=== PATIENT | female | born 1940 | race Caucasian/White ===

== ENCOUNTER 2017-01-20 13:19 | Inpatient (IN) | payer OTHER, MEDICAID ==
[~2017-01-20] VITALS: Ht 165.1 cm; Wt 67.1 kg
[~2017-01-20 13:19] MED LIST: ALBU8.5H2 INH; ASCO500T9 PO; BACL20TA PO; CLOP75TA2 PO; LEVO125T8 PO; MULT-213 PO; PANT40TA4 PO; ROSU20TA28 PO; ZOLP5TAB7 PO
--- NOTE | 2017-01-20 13:52 | NUR ---
pt bibra from snf. per report, pt is more altered than usual. pt is non verbal. gowned and placed on monitor. stable vitals noted. no fever, awaiting md alfaro.
--- NOTE | 2017-01-20 14:45 | NUR ---
dr mo at bedside for eval.
--- NOTE | 2017-01-20 15:15 | NUR ---
iv line started blood drawn and sent to lab.
[2017-01-20 15:24] LABS: BASOPHILS # (AUTO) 0.2 /CMM (0.0-0.2); BASOPHILS % (AUTO) 1.3 % (0.0-2.0); EOSINOPHILS # (AUTO) 0.4 /CMM (0.0-0.7); EOSINOPHILS % (AUTO) 3.8 % (0.0-6.0); HEMATOCRIT 33 % (33-45); HEMOGLOBIN 10.6 g/dL (11.5-14.8); LYMPHOCYTES # (AUTO) 4.3 /CMM (0.8-4.8); LYMPHOCYTES % (AUTO) 36.7 % (20.0-44.0); MEAN CORPUSCULAR HEMOGLOBIN 27 PG (26.0-33.0); MEAN CORPUSCULAR HGB CONC 32 g/dl (31.0-36.0); MEAN CORPUSCULAR VOLUME 84 fL (82-100); MONOCYTES % (AUTO) 8.7 % (2.0-12.0); NEUTROPHILS # (AUTO) 5.9 /CMM (1.8-8.9); NEUTROPHILS % (AUTO) 49.5 % (43.0-81.0); PLATELET COUNT (AUTO) 418 /CMM (150-450); RDW COEFFICIENT OF VARIATION 19.1 (11.5-15.0); RED BLOOD CELL COUNT(AUTO) 3.95 MIL/uL (4.0-5.2); WHITE BLOOD COUNT (AUTO) 11.8 K/uL (4.3-11.0)
[2017-01-20 15:35] LABS: CALCIUM, SERUM 10.1 mg/dL (8.5-10.1); CARBON DIOXIDE 23 mmol/L (21-32); CHLORIDE 116 mmol/L (98-107); CREATININE 1.8 mg/dL (0.6-1.3); GLUCOSE 81 mg/dL (74-106); POTASSIUM 3.9 mmol/L (3.5-5.1); SODIUM SERUM 150 mmol/L (136-145); UREA NITROGEN, BLOOD 52 mg/dL (7-18)
[2017-01-20 15:38] LABS: INR 1.03 (0.87-1.13); PROTHROMBIN TIME 10.7 SECS (9.5-12.7)
[2017-01-20 15:41] LABS: ALANINE AMINOTRANSFERASE 7 U/L (12-78); ALBUMIN 2.4 g/dL (3.4-5.0); ALKALINE PHOSPHATASE 84 U/L (46-116); ASPARTATE AMINOTRANSFERASE 12 U/L (15-37); BILIRUBIN,DIRECT 0.2 mg/dL (0.0-0.2); BILIRUBIN,TOTAL 0.5 mg/dL (0.2-1.0); TOTAL PROTEIN, SERUM 6.7 g/dL (6.4-8.2)
[2017-01-20 15:43] LABS: TROPONIN I < 0.017 ng/mL (0.00-0.056)
[2017-01-20 16:15] LABS: APPEARANCE,URINE Slightly Cloudy (CLEAR); BILIRUBIN,URINE SMALL (NEGATIVE); BLOOD, URINE Moderate Ery/uL (NEGATIVE); COLOR,URINE Dark (YELLOW); KETONES,URINE Trace (NEGATIVE); LEUKOCYTE ESTERASE ,URINE Large (NEGATIVE); NITRITE, URINE Positive (NEGATIVE); PH,URINE 8.5 (5.0-8.0); PROTEIN,URINE >=300 mg/dl (NEGATIVE); UGLUCOSE Negative (NEGATIVE)
[2017-01-20 16:20] LABS: WBC,URINE TOO NUMEROUS TO COUN /HPF (0-3)
[2017-01-20 16:21] LABS: BACTERIA,URINE Many /HPF (None Seen); SQUAMOUS EPITHELIAL CELL,UR Few /HPF (None Seen)
[2017-01-20] MEDS ORDERED: PIPERACILLIN /TAZOBACTAM 3.375 G in IV D5W 50 ML IV ONE (16:30)
[2017-01-20] MEDS ORDERED: IV NS 0.9% 1,000 ML BAG IV ONE (16:30)
[2017-01-20] MEDS ORDERED: HYDR-552 PO (17:02)
[2017-01-20] MEDS ORDERED: BISA10SU8 RC (17:02)
[2017-01-20] MEDS ORDERED: GUAI5SYR PO (17:02)
[2017-01-20] MEDS ORDERED: FLUT16SP16 NS (17:02)
[2017-01-20] MEDS ORDERED: IBAN150T PO (17:02)
[2017-01-20] MEDS ORDERED: ACET325T53 PO (17:02)
[2017-01-20] MEDS ORDERED: MEGE400O PO (17:02)
[2017-01-20] MEDS ORDERED: ALBU2.5V13 IH (17:02)
[2017-01-20] MEDS ORDERED: MAGN400O6 PO (17:02)
[2017-01-20] MEDS ORDERED: LEVO75TA7 PO (17:02)
[2017-01-20] MEDS ORDERED: NA P133E RC (17:02)
[2017-01-20] MEDS ORDERED: HYDR-548 PO (17:02)
[2017-01-20] MEDS ORDERED: PREG75CA PO (17:02)
[2017-01-20] MEDS ORDERED: HYDR2TAB35 PO (17:16)
[2017-01-20] MEDS ORDERED: POLY17PO4 PO (17:16)
[2017-01-20] MEDS ORDERED: AMIN30LI2 PO (17:16)
[2017-01-20] MEDS ORDERED: VIT1CAPS32 PO (17:16)
[2017-01-20] MEDS ORDERED: ATOR40TA PO (17:16)
[2017-01-20] MEDS ORDERED: ONDA4TAB5 PO (17:16)
--- NOTE | 2017-01-20 17:19 | NUR ---
report given to nurse. pt awaiting transfer to floor.
[2017-01-20 18:14] VITALS: BP 124/67
--- NOTE | 2017-01-20 18:20 | NUR ---
RECEIVED PT FROM THE ER. PT IS AWAKE, ALERT AND ORIENTED TO SELF ONLY. IV ON RAC INTACT AND PATENT. DR. JIMÉNEZ WAS NOTIFIED OF PT ARRIVAL ON UNIT. VITALS ARE BP 124/67 HR 94 R 20 TEMP 99.3 AND O2 SAT IS 96 ON RA. PT SHOWS NO SOB OR SIGNS OF PAIN. BED IS IN LOW AND LOCKED POSITION, SIDE RAILS UP X3, CALL LIGHT IS IN REACH, AND BED ALARM IS ON. WILL CONTINUE TO MONITOR.
[2017-01-20] MEDS ORDERED: ONDANSETRON HCL/PF 4 MG/2 ML VIAL IVP PRN (18:30)
[2017-01-20] MEDS ORDERED: ENOXAPARIN SODIUM 40 MG/0.4 ML DISP.SYRIN SQ SCH (18:30)
[2017-01-20] MEDS ORDERED: BISACODYL SUPP (10 MG) 10 MG/SUPP.RECT SUPP.RECT RC PRN (18:30)
[2017-01-20] MEDS ORDERED: ALBUTEROL FS 2.5 MG/0.5 ML VIAL.NEB IH PRN (18:30)
--- NOTE | 2017-01-20 18:30 | NUR ---
LOVENOX WAS GIVEN. NEXT DOSE TO BE AT 01/21/17 AT 2100.
[2017-01-20] MEDS: ENOXAPARIN SODIUM 30 MG/0.3 ML DISP.SYRIN SQ SCH (18:37)
[2017-01-20] MEDS: IV D5W 1,000 ML IV PRN (18:39)
--- NOTE | 2017-01-20 18:55 | NUR ---
RN NOTES PT IS IN BED, SLEEPING INTERMITTENTLY. NO SIGNS OF DISTRESS OR PAIN. SAFETY MEASURES ARE IN PLACE. WILL ENDORSE TO CRIMINAL DEFENSE ATTORNEY RN FOR CONTINUITY OF CARE.
--- NOTE | 2017-01-20 19:30 | NUR ---
RN NOTES RECEIVED PT. SLEEPING BUT AROUSABLE, SR WITH PAC ON TELE MONITOR HR-65, A/OX2, SLURRED SPEECH, ADMISSION INSTRUCTION WAS GIVEN, CALL LIGHT WITHIN REACH, SIDERAILS UPX2, CONTINUE TO MONITOR
[2017-01-20 20:00] VITALS: BP 122/61
[2017-01-20] MEDS: CEFTRIAXONE 1 G in IV D5W 50 ML IV SCH (20:39)
[2017-01-20] MEDS: ATORVASTATIN 40 MG TABLET PO SCH (21:23)
[2017-01-21] VITALS: BP 139/72
--- NOTE | 2017-01-21 01:00 | NUR ---
RN NOTES PT CAME BUT PT. IS ALREADY SLEEPING
[2017-01-21 04:00] VITALS: BP 127/74
[2017-01-21] MEDS: IV D5W 1,000 ML IV PRN (05:13)
--- NOTE | 2017-01-21 06:56 | NUR ---
RN NOTES AWAKE, MORNING CARE RENDERED, IV LINE PATENT, PT NEEDS ATTENDED.
[2017-01-21 07:12] LABS: BASOPHILS % (AUTO) 0.5 % (0.0-2.0); EOSINOPHILS # (AUTO) 0.6 /CMM (0.0-0.7); EOSINOPHILS % (AUTO) 6.4 % (0.0-6.0); HEMATOCRIT 29 % (33-45); HEMOGLOBIN 9.4 g/dL (11.5-14.8); LYMPHOCYTES # (AUTO) 3.6 /CMM (0.8-4.8); LYMPHOCYTES % (AUTO) 38.4 % (20.0-44.0); MEAN CORPUSCULAR HEMOGLOBIN 27 PG (26.0-33.0); MEAN CORPUSCULAR HGB CONC 33 g/dl (31.0-36.0); MEAN CORPUSCULAR VOLUME 83 fL (82-100); MONOCYTES # (AUTO) 0.7 /CMM (0.1-1.30); MONOCYTES % (AUTO) 7.3 % (2.0-12.0); NEUTROPHILS # (AUTO) 4.4 /CMM (1.8-8.9); NEUTROPHILS % (AUTO) 47.4 % (43.0-81.0); PLATELET COUNT (AUTO) 325 /CMM (150-450); RDW COEFFICIENT OF VARIATION 20.1 (11.5-15.0); RED BLOOD CELL COUNT(AUTO) 3.46 MIL/uL (4.0-5.2); WHITE BLOOD COUNT (AUTO) 9.3 K/uL (4.3-11.0)
--- NOTE | 2017-01-21 07:30 | NUR ---
MARINE FIREMAN NOTES PATIENT IS A/OX1-2. NO S/S OF SOB OR DISTRESS NOTED. PATIENT ON TELE MONITOR: HR AT 82; SR. IV IS PATENT AND INTACT. BED IS IN THE LOWEST, LOCKED POSITION. CALL LIGHT WITHIN REACH. WILL CONTINUE TO MONITOR THROUGHOUT SHIFT.
[2017-01-21 07:33] LABS: ALANINE AMINOTRANSFERASE 12 U/L (12-78); ALBUMIN 1.9 g/dL (3.4-5.0); ALKALINE PHOSPHATASE 71 U/L (46-116); ASPARTATE AMINOTRANSFERASE 15 U/L (15-37); BILIRUBIN,TOTAL 0.3 mg/dL (0.2-1.0); CALCIUM, SERUM 9.1 mg/dL (8.5-10.1); CARBON DIOXIDE 23 mmol/L (21-32); CHLORIDE 112 mmol/L (98-107); CREATININE 1.2 mg/dL (0.6-1.3); GLUCOSE 94 mg/dL (74-106); MAGNESIUM 1.9 mg/dL (1.8-2.4); PHOSPHORUS 2.5 mg/dL (2.5-4.9); POTASSIUM 3.3 mmol/L (3.5-5.1); SODIUM SERUM 144 mmol/L (136-145); TOTAL PROTEIN, SERUM 5.8 g/dL (6.4-8.2); UREA NITROGEN, BLOOD 37 mg/dL (7-18)
[2017-01-21 07:36] LABS: CHOLESTEROL 87 mg/dL (<200); HDL CHOLESTEROL 28 mg/dL (40-60); LDL 52 mg/dL (0-99); THYROID STIMULATING HORMONE 0.416 uIU/mL (0.358-3.74); TRIGLYCERIDES 51 mg/dL (30-150)
[2017-01-21 08:00] VITALS: BP 140/67
[2017-01-21] MEDS: MEGESTROL ACETATE SUSP 400 MG/10 ML UDC PO SCH ×2 (09:23→17:40)
[2017-01-21] MEDS: LEVOTHYROXINE SODIUM 75 MCG TABLET PO SCH (09:23)
[2017-01-21] MEDS: BACLOFEN (10 MG) 10 MG TABLET PO SCH ×3 (09:23→17:40)
[2017-01-21] MEDS: CLOPIDOGREL BISULFATE 75 MG TABLET PO SCH (09:23)
[2017-01-21] MEDS: PREGABALIN 25 MG CAPSULE PO SCH ×2 (09:23→17:40)
[2017-01-21] MEDS: ASCORBIC ACID 500 MG TABLET PO SCH (09:23)
[2017-01-21] MEDS: FLUTICASONE PROPIONATE 16 GM BOTTLE NS SCH ×2 (09:25→17:40)
[2017-01-21] MEDS ORDERED: POTASSIUM CHLORIDE 20 MEQ TAB.PRT.SR PO SCH ×2 (10:30→12:30)
[2017-01-21 16:00] VITALS: BP 128/60
[2017-01-21] MEDS: HYDROCORTISONE OINT 1% 28.35 GM TUBE TP SCH (17:40)
[2017-01-21] MEDS: NYSTATIN/TRIAMCIN CREAM 15 GM TUBE TP SCH (17:40)
--- NOTE | 2017-01-21 18:16 | NUR ---
VARNISHER APPRENTICE NOTES PATIENT IS A/OX1-2. NO S/S OF SOB OR DISTRESS NOTED. PATIENT ON TELE MONITOR: HR AT 109; SR. IV IS PATENT AND INTACT. BED IS IN THE LOWEST, LOCKED POSITION. CALL LIGHT WITHIN REACH. WILL CONTINUE TO MONITOR THROUGHOUT SHIFT. Addendum: 01/21/17 at 1820 by TOM GIBBS RN ALL PATIENT NEEDS HAVE BEEN MET.
[2017-01-21 20:00] VITALS: BP 107/57
--- NOTE | 2017-01-21 20:09 | NUR ---
tele/rn opening notes patient in bed, awake, alert x2. able to state name but require frequent orientation, with slurred speech, incontinent , require wound care on left inner ear for noted scab.
--- NOTE | 2017-01-21 20:12 | NUR ---
tele/rn opening notes received endorsement from am rn regarding plan of care with order to continue plavix and lipid for strole preventive measures. call lights within reach, bed in lock position. will continue to monitor.
[2017-01-21 20:37] VITALS: BP 107/57
[2017-01-21] MEDS: CEFTRIAXONE 1 G in IV D5W 50 ML IV SCH (20:50)
[2017-01-21] MEDS: ENOXAPARIN SODIUM 30 MG/0.3 ML DISP.SYRIN SQ SCH (21:06)
[2017-01-21] MEDS: ATORVASTATIN 40 MG TABLET PO SCH (21:27)
[2017-01-22] VITALS (9 sets, daily range): BP systolic 126–153; BP diastolic 70–78
[2017-01-22] MEDS: IV D5W 1,000 ML IV PRN ×2 (00:05→13:20)
[2017-01-22] MEDS: ACETAMINOPHEN 325 MG TABLET PO PRN ×2 (00:17→23:29)
--- NOTE | 2017-01-22 00:18 | NUR ---
tele/rn notes tele reading sr 89, pain verbalized at 5/10 generalized pain, prefered tylenol for now. will continue to monitor.
--- NOTE | 2017-01-22 06:21 | NUR ---
tele/rn closing notes patient on tele monitoring at SR82. attended to needs and provide care. kept skin intact and dry.cooperative to care. call lights within reach. alert, orientedx2, require extensive assistance in repositon and turning. Applied wound care treatment on groin, buttocks,sacral wounds by cleansing site w/ soap and water apply mycolog cream ,provide wound treatment on right ear lobe by applying hydrocortizone cream.kept elbow wound w/ mepilex. will endorse to am rn regarding plan of care.
--- NOTE | 2017-01-22 07:45 | NUR ---
TELE/RN OPENING NOTES RECEIVED PT. IN BED A&OX2. PT. IS ON TELE MONITOR. BREATHING ON ROOM AIR UNLABORED. NO S/S OF ACUTE DISTRESS. IV FLUIDS RUNNING AT 100 ML/HR. BED IS IN LOW POSITION, 2 SIDE RAILS UP, AND CALL LIGHT WITHIN REACH.
[2017-01-22] MEDS: ASCORBIC ACID 500 MG TABLET PO SCH (09:43)
[2017-01-22] MEDS: MEGESTROL ACETATE SUSP 400 MG/10 ML UDC PO SCH ×2 (09:43→18:08)
[2017-01-22] MEDS: PREGABALIN 25 MG CAPSULE PO SCH ×2 (09:44→18:08)
[2017-01-22] MEDS: LEVOTHYROXINE SODIUM 75 MCG TABLET PO SCH (09:44)
[2017-01-22] MEDS: BACLOFEN (10 MG) 10 MG TABLET PO SCH ×3 (09:44→18:08)
[2017-01-22] MEDS: CLOPIDOGREL BISULFATE 75 MG TABLET PO SCH (09:44)
[2017-01-22] MEDS: FLUTICASONE PROPIONATE 16 GM BOTTLE NS SCH ×2 (09:45→18:07)
[2017-01-22] MEDS: NYSTATIN/TRIAMCIN CREAM 15 GM TUBE TP SCH ×2 (09:54→18:08)
[2017-01-22] MEDS: HYDROCORTISONE OINT 1% 28.35 GM TUBE TP SCH ×2 (09:55→18:09)
--- NOTE | 2017-01-22 14:58 | NUR ---
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 MD NOTIFIED, NEW ORDERS GIVEN. INFORMED CHARGE NURSE. ORDERED TOPICAL ANTIBIOTICS AND PLACED PT. ON CONTACT ISOLATION.
--- NOTE | 2017-01-22 15:11 | NUR ---
RN NOTES PER DIET CONSULT RECOMMENDATION PT. NEEDS ADDITIONAL FOOD SUPPLEMENT BOOST BID, AND DIET CHANGE TO MECHANICAL SOFT DIET DUE TO PATIENT HAVING DIFFICULTY CHEWING.
[2017-01-22] MEDS: BOOST PLUS FOOD-VANILLA 237 ML BOX PO SCH (17:00)
[2017-01-22] MEDS: MUPIROCIN OINT 2% 22 GM TUBE SCH (18:08)
[2017-01-22] MEDS: HYDROCODONE/APAP 10/325MG 1 EA TABLET PO PRN (18:56)
--- NOTE | 2017-01-22 19:00 | NUR ---
TELE/RN OPENING NOTES RECEIVED PT. IN BED A&OX2. PT. IS ON TELE MONITOR SINUS RHYTHM 90'S BPM. BREATHING ON ROOM AIR EVENLY. NO S/S OF ACUTE DISTRESS. IV FLUIDS NEAR BEDSIDE. BED IS IN LOW POSITION, 2 SIDE RAILS UP, AND CALL LIGHT WITHIN REACH. Addendum: 01/22/17 at 8 by ELVA DAVIS RN CLOSING NOTES ABOVE
--- NOTE | 2017-01-22 19:40 | NUR ---
DENTAL PRACTICE MANAGER NOTES RECEIVED PT IN BED, PT IS AWAKE, A/O X2, VERBALLY RESPONSIVE. NO DISTRESS, NO SOB NOTED. RESPIRATION IS EVEN AND UNLABORED. ABDOMEN IS SOFT AND NON DISTENDED. IV SITE ON RAC INTACT AND PATENT , NO S/S OF INFILTRATION NOTED. IVF INFUSING WELL. ALL NEEDS ATTENDED AND MET. KEPT COMFORTABLE. CALL LIGHT WITHIN REACH. SAFETY PRECAUTIONS OBSERVED. WILL CONTINUE TO MONITOR.
[2017-01-22] MEDS: CEFTRIAXONE 1 G in IV D5W 50 ML IV SCH (20:29)
[2017-01-22] MEDS: ENOXAPARIN SODIUM 30 MG/0.3 ML DISP.SYRIN SQ SCH (20:36)
[2017-01-22] MEDS: ATORVASTATIN 40 MG TABLET PO SCH (21:31)
--- NOTE | 2017-01-22 21:55 | NUR ---
PT IS STABLE. A/O X 2. AWAKE AT THIS TIME AND VERBALLY RESPONSIVE. ALL NEEDS ATTENDED AND MET. ENDORSED PT ACCORDINGLY TO ALICIA HAZEL.
--- NOTE | 2017-01-22 22:00 | NUR ---
RN INITIAL NOTES: RECEIVED REPORT FROM CAREN RN, PT IN BED, AWAKE, A/O X2 ON 2L VIA NC, PT HAS RIGHT AC IV ACCESS PATENT AND FLUSHING WELL, PT REFUSED IVF , EDUCATION PROVIDED TO THE PT HENCE SHE INSISTED TO REFUSED, ALSO REFUSED SCD STATED SHE DOESNT WANT IT AND THAT HER LEG AND FEET ARE SORE, BLE OFFLOADED, PT ON SINUS RHYTHM TO SINUS TACHY HR 101-110, VS TABLE, DENIES ANY DISCOMFORT, SAFETY PRECAUTIONS FOR FALL INITIATED CALL LIGHT IN REACH WILL CONTINUE TO MONITOR
--- NOTE | 2017-01-22 23:30 | NUR ---
PRN TYLENOL: PT C/O HEAD ACHE 08/28 REQUESTING FOR TYLENOL, PRN TYLENOL 650MG TAB [PO ADMINISTERED TO THE PT AT THIS TIME, WILL CONTINUE TO MONITOR AND REASSESS
[2017-01-23] VITALS: BP 142/82
--- NOTE | 2017-01-23 | NUR ---
rn notes: pt on sinus rhythm hr 87, pt sleeping at this time
[2017-01-23 04:00] VITALS: BP 140/73
[2017-01-23 06:21] LABS: BASOPHILS % (AUTO) 0.4 % (0.0-2.0); EOSINOPHILS # (AUTO) 0.6 /CMM (0.0-0.7); HEMATOCRIT 32 % (33-45); HEMOGLOBIN 10.3 g/dL (11.5-14.8); LYMPHOCYTES # (AUTO) 6.1 /CMM (0.8-4.8); LYMPHOCYTES % (AUTO) 52.4 % (20.0-44.0); MEAN CORPUSCULAR HEMOGLOBIN 27 PG (26.0-33.0); MEAN CORPUSCULAR HGB CONC 33 g/dl (31.0-36.0); MEAN CORPUSCULAR VOLUME 83 fL (82-100); MONOCYTES # (AUTO) 0.9 /CMM (0.1-1.30); MONOCYTES % (AUTO) 7.9 % (2.0-12.0); NEUTROPHILS % (AUTO) 34.3 % (43.0-81.0); PLATELET COUNT (AUTO) 360 /CMM (150-450); RDW COEFFICIENT OF VARIATION 19.6 (11.5-15.0); RED BLOOD CELL COUNT(AUTO) 3.78 MIL/uL (4.0-5.2); WHITE BLOOD COUNT (AUTO) 11.6 K/uL (4.3-11.0)
[2017-01-23 06:45] LABS: CALCIUM, SERUM 9.1 mg/dL (8.5-10.1); CARBON DIOXIDE 21 mmol/L (21-32); CHLORIDE 111 mmol/L (98-107); GLUCOSE 76 mg/dL (74-106); MAGNESIUM 1.5 mg/dL (1.8-2.4); PHOSPHORUS 2.9 mg/dL (2.5-4.9); POTASSIUM 3.4 mmol/L (3.5-5.1); SODIUM SERUM 144 mmol/L (136-145); UREA NITROGEN, BLOOD 18 mg/dL (7-18)
--- NOTE | 2017-01-23 07:07 | NUR ---
EMERGENCY DEPARTMENT DIRECTOR CLOSING NOTES: PT IN BED, AWAKE, REMAINS A/O X2, ON 2L VIA NC, DENIES ANY SOB AT THIS TIME, DENIES ANY PAIN OR DISCOMFORT AT THIS TIME.REMAINS ON SINUS RHYTHM HR 82. IV ACCESS REMAINS PATENT AND FLUSHING WELL, ON HL, PT REFUSED IVF DESPITE GIVING EDUCATION. BLE KEPT OFFLOADED. VS REMAINS STABLE, NEEDS ATTENDED. SAFETY PRECAUTIONS FOR FALL REMAINS ENGAGED CALL LIGHT IN REACH WILL ENDORSE TO DAY RN FOR NAZ.
--- NOTE | 2017-01-23 07:30 | NUR ---
RECEIVED PT. IN AM ALERT AND ORIENTEDX2.REFUSING IV MOST OF THE TIME.
[2017-01-23 08:00] VITALS: BP 140/69
[2017-01-23] MEDS: BOOST PLUS FOOD-VANILLA 237 ML BOX PO SCH ×2 (09:00→17:00)
[2017-01-23] MEDS: MEGESTROL ACETATE SUSP 400 MG/10 ML UDC PO SCH ×2 (09:00→17:00)
[2017-01-23] MEDS: CLOPIDOGREL BISULFATE 75 MG TABLET PO SCH (09:01)
[2017-01-23] MEDS: BACLOFEN (10 MG) 10 MG TABLET PO SCH ×3 (09:01→17:13)
[2017-01-23] MEDS: PREGABALIN 25 MG CAPSULE PO SCH ×2 (09:01→17:13)
[2017-01-23] MEDS: FLUTICASONE PROPIONATE 16 GM BOTTLE NS SCH ×2 (09:01→17:04)
[2017-01-23] MEDS: LEVOTHYROXINE SODIUM 75 MCG TABLET PO SCH (09:03)
[2017-01-23] MEDS: ASCORBIC ACID 500 MG TABLET PO SCH (09:03)
[2017-01-23] MEDS: HYDROCORTISONE OINT 1% 28.35 GM TUBE TP SCH ×2 (09:04→17:05)
[2017-01-23] MEDS: MUPIROCIN OINT 2% 22 GM TUBE SCH ×2 (09:05→17:04)
[2017-01-23] MEDS: NYSTATIN/TRIAMCIN CREAM 15 GM TUBE TP SCH ×2 (09:06→17:04)
[2017-01-23] MEDS ORDERED: Magnesium 1GM/D5W 100ML PREMIX 100 ML IV SCH (11:30)
[2017-01-23 12:00] VITALS: BP 148/66
[2017-01-23] MEDS: Magnesium 1GM/D5W 100ML PREMIX 100 ML IV SCH ×2 (12:22→13:48)
[2017-01-23] MEDS ORDERED: POTASSIUM CHLORIDE 20 MEQ TAB.PRT.SR PO SCH (12:30)
[2017-01-23] MEDS: HYDROCODONE/APAP 10/325MG 1 EA TABLET PO PRN (14:30)
[2017-01-23] MEDS ORDERED: HYDROMORPHONE 1 MG/1 ML DISP.SYRIN IV PRN (15:00)
--- NOTE | 2017-01-23 15:30 | NUR ---
MED. IN ADDITION TO ROUTINE LYRICA WITH NORCO.STATES SHE HAS HAMZAH. SHOUDER PAIN AND LT. HIP PAIN.
[2017-01-23 16:00] VITALS: BP 128/69
--- NOTE | 2017-01-23 17:32 | NUR ---
REFUSING MEGACE AND BOOST.
--- NOTE | 2017-01-23 18:47 | NUR ---
IMAGINING THINGS-CALLED OUT FOR NURSE AND SAID SHE THOUGHT HER WAS LYING ON THE FLOOR.REASSURED THAT SPOUSE WAS NOT THERE.PT. CALMED DOWN.
--- NOTE | 2017-01-23 19:00 | NUR ---
TELE OPENING NOTES RECEIVED PT IN BED, A/O X 2, RESPIRATION EVEN AND UNLABORED, NO S/S OF DISTRESS. SAFETY PRECAUTIONS IN PLACE, BED LOW LOCKED, CALL LIGHT IN REACH WILL CONTINUE TO MONITOR.
[2017-01-23 20:00] VITALS: BP 131/77
[2017-01-23] MEDS: CEFTRIAXONE 1 G in IV D5W 50 ML IV SCH (20:55)
[2017-01-23] MEDS: ATORVASTATIN 40 MG TABLET PO SCH (21:10)
[2017-01-23] MEDS: ENOXAPARIN SODIUM 30 MG/0.3 ML DISP.SYRIN SQ SCH (21:11)
[2017-01-24] VITALS: BP 125/70
[2017-01-24 04:00] VITALS: BP 130/78
--- NOTE | 2017-01-24 06:41 | NUR ---
SCHOOL TRANSPORTATION SUPERVISOR CLOSING NOTES PATIENT COMFORTABLY ASLEEP AND EASILY AWAKEN, HEAD OF BED ELEVATED FOR BETTER LUNG EXPANSION. ON 02 2LPM VIA NC 02 SAT 98% IV SITE NO S/S OF INFILTRATED, RESPIRATIONS EVEN AND UNLABORED. NO S/S OF ACUTE DISTRESS, NO SOB, SKIN WARM AND DRY TO TOUCH, AFEBRILE, ALL NURSING CARE NEEDS PROVIDED AND RENDERED, NEEDS ATTENDED AND ANTICIPATED, KEPT CLEAN AND DRY AND COMFORTABLE, GOOD SKIN CARE PROVIDED. REPOSITIONED EVERY 2 HOURS FOR SKIN MGT. FREQUENT VISUAL CHECK DONE FOR SAFETY EVERY 2 HOURS. SAFE HAZARD FREE ENVIRONMENT PROVIDED. CALL LIGHT WITHIN EASY TO REACH, ON LOW BED AT ALL TIMES TO ENSURE SAFETY, WILL ENDORSE TO THE NEXT SHIFT CONTINUE PLAN OF CARE.ON TELE MTR SR 81'S
[2017-01-24 06:50] LABS: BASOPHILS % (AUTO) 0.4 % (0.0-2.0); CALCIUM, SERUM 9.2 mg/dL (8.5-10.1); CARBON DIOXIDE 21 mmol/L (21-32); CHLORIDE 113 mmol/L (98-107); CREATININE 0.8 mg/dL (0.6-1.3); EOSINOPHILS # (AUTO) 0.4 /CMM (0.0-0.7); GLUCOSE 76 mg/dL (74-106); HEMATOCRIT 30 % (33-45); HEMOGLOBIN 9.6 g/dL (11.5-14.8); LYMPHOCYTES # (AUTO) 3.9 /CMM (0.8-4.8); LYMPHOCYTES % (AUTO) 46.6 % (20.0-44.0); MEAN CORPUSCULAR HEMOGLOBIN 27 PG (26.0-33.0); MEAN CORPUSCULAR HGB CONC 32 g/dl (31.0-36.0); MEAN CORPUSCULAR VOLUME 83 fL (82-100); MONOCYTES # (AUTO) 0.7 /CMM (0.1-1.30); MONOCYTES % (AUTO) 8.9 % (2.0-12.0); NEUTROPHILS # (AUTO) 3.3 /CMM (1.8-8.9); NEUTROPHILS % (AUTO) 39.1 % (43.0-81.0); PHOSPHORUS 2.7 mg/dL (2.5-4.9); PLATELET COUNT (AUTO) 345 /CMM (150-450); POTASSIUM 3.6 mmol/L (3.5-5.1); RDW COEFFICIENT OF VARIATION 19.5 (11.5-15.0); RED BLOOD CELL COUNT(AUTO) 3.59 MIL/uL (4.0-5.2); SODIUM SERUM 145 mmol/L (136-145); UREA NITROGEN, BLOOD 15 mg/dL (7-18); WHITE BLOOD COUNT (AUTO) 8.4 K/uL (4.3-11.0)
--- NOTE | 2017-01-24 07:43 | NUR ---
UNDERWRITING CLERK OPENING NOTE RECEIVE REPORT ON THE PATIENT. PATIENT IS AWAKE IN BED, ALER, ORIENTED TO PERSON, DISORIENTED TO PLACE TIME AND EVENT. RE-ORIENTED THE PATIENT AND PROVIDED REASSURANCE FOR COMFORT. ON RESPIRATIONS EVEN AND UNLABORED. NO S/S OF DISTRESS, NO SOB, SKIN WARM AND DRY TO TOUCH. . CALL LIGHT WITHIN EASY TO REACH, ON LOW BED AT ALL TIMES TO ENSURE SAFETY. MONITOR READING SINUS RHYTHM W HR 82. DENIES PAIN AT THIS TUIME. WILL CONTINUE TO MONITOR.
[2017-01-24 08:00] VITALS: BP 143/75
[2017-01-24] MEDS: LEVOTHYROXINE SODIUM 75 MCG TABLET PO SCH (08:28)
[2017-01-24] MEDS: BACLOFEN (10 MG) 10 MG TABLET PO SCH ×3 (08:58→16:59)
[2017-01-24] MEDS: BOOST PLUS FOOD-VANILLA 237 ML BOX PO SCH ×2 (08:58→17:14)
[2017-01-24] MEDS: PREGABALIN 25 MG CAPSULE PO SCH ×2 (08:58→16:59)
[2017-01-24] MEDS: MEGESTROL ACETATE SUSP 400 MG/10 ML UDC PO SCH ×2 (08:58→16:58)
[2017-01-24] MEDS: ASCORBIC ACID 500 MG TABLET PO SCH (08:58)
[2017-01-24] MEDS: CLOPIDOGREL BISULFATE 75 MG TABLET PO SCH (08:58)
[2017-01-24] MEDS: Z GUARD REMEDY 2 OZ OINT TP PRN ×3 (08:59→17:14)
[2017-01-24] MEDS: FLUTICASONE PROPIONATE 16 GM BOTTLE NS SCH ×2 (09:00→17:08)
[2017-01-24] MEDS: MUPIROCIN OINT 2% 22 GM TUBE SCH ×2 (09:00→17:06)
[2017-01-24] MEDS: HYDROCORTISONE OINT 1% 28.35 GM TUBE TP SCH ×2 (09:01→17:05)
[2017-01-24] MEDS: NYSTATIN/TRIAMCIN CREAM 15 GM TUBE TP SCH ×2 (09:02→17:07)
[2017-01-24 10:00] VITALS: BP 142/76
[2017-01-24] MEDS ORDERED: CEPH-569 PO (15:47)
[2017-01-24 16:00] VITALS: BP 121/66
--- NOTE | 2017-01-24 17:09 | NUR ---
VICE PRESIDENT MARKETING & DEVELOPMENT NOTES MESSAGE TO CASE MANAGEMENT PATIENT FAMILY REQUESTING PLACEMENT FOR SNF IN [place]. CM WILL F/U; DC ON HOLD PENDING PLACEMENT
[2017-01-24] MEDS: HYDROCODONE/APAP 10/325MG 1 EA TABLET PO PRN (17:12)
--- NOTE | 2017-01-24 18:29 | NUR ---
NURSE SPECIALIST NOTES PATIENT IV REMOVED PRESSURE AND DRESSING APPLIED NO BLEEDING NOTED. CATH TIP INTACT. PATIENT BELINGINGS ALL ACCOUNTED FOR AND AT BEDSIDE. PATIENT CLEANSED AND AWAITING OPERATIONS SUPPORT SPECIALIST. X2 CALLS TO [facility] FOR REPORT. NO OPERATIONS SUPPORT SPECIALIST. WILL ATTEMPT AGAIN BEFORE DC
--- NOTE | 2017-01-24 18:35 | NUR ---
CAPACITY PLANNING ENGINEER NOTES 3RD CALL TO [facility] ON HOLD FOR MORE THAN 10 MINUTES. LEFT MY NUMBER AND NAME FOR CALL BACK FOR REPORT. AMBULANCE AT BEDSIDE FOR PICKUP
--- NOTE | 2017-01-24 18:37 | NUR ---
MILLWRIGHT APPRENTICE NOTES CALLED [phone] AND SPOKE WITH ARIANA DAUGHTER AND NOTIFIED OF DISCHARGE.
--- NOTE | 2017-01-24 18:45 | NUR ---
HOUSE DETECTIVEFACULTY CRIMINAL JUSTICE PATIENT AT BASELINE AND STABLE. NO COMPLICATIONS. ALL DUE MEDS GIVEN AND ALL NEEDS MET. PATIENT REPORT NOT GIVEN MULTIPLE ATTEMPTS TO CALL AND GIVE REPORT WERE UNSUCCESSFUL; AWAITING CALL BACK FROM [facility] FOR REPORT. PATIENT LEFT IN STABLE CONDITION.
== END 2017-01-24 18:40 | DRG 871 ==
LOC: ER 13:23 → TELE 17:55
PROVIDERS: ADMIT Nurse Practitioner Acute Care; ATTEND Nurse Practitioner Acute Care
DX: A41.9 Sepsis, unspecified organism (principal); N17.0 Acute kidney failure with tubular necrosis; G93.41 Metabolic encephalopathy; L89.313 Pressure ulcer of right buttock, stage 3; N39.0 Urinary tract infection, site not specified; E87.0 Hyperosmolality and hypernatremia; J44.9 Chronic obstructive pulmonary disease, unspecified; R33.9 Retention of urine, unspecified; M79.7 Fibromyalgia; M19.90 Unspecified osteoarthritis, unspecified site; K59.00 Constipation, unspecified; K21.9 Gastro-esophageal reflux disease without esophagitis; I25.10 Atherosclerotic heart disease of native coronary artery without angina pectoris; I73.9 Peripheral vascular disease, unspecified; M54.30 Sciatica, unspecified side; G89.4 Chronic pain syndrome; Z87.442 Personal history of urinary calculi; Z87.440 Personal history of urinary (tract) infections; Z86.73 Personal history of transient ischemic attack (TIA), and cerebral infarction without residual deficits; Z79.899 Other long term (current) drug therapy; Z88.1 Allergy status to other antibiotic agents; Z91.041 Radiographic dye allergy status; Z88.5 Allergy status to narcotic agent; Z88.0 Allergy status to penicillin; Z91.013 Allergy to seafood; Z88.2 Allergy status to sulfonamides; Z88.8 Allergy status to other drugs, medicaments and biological substances; Z91.018 Allergy to other foods; E86.0 Dehydration; E03.9 Hypothyroidism, unspecified; D63.8 Anemia in other chronic diseases classified elsewhere; L89.620 Pressure ulcer of left heel, unstageable; L89.610 Pressure ulcer of right heel, unstageable; L89.150 Pressure ulcer of sacral region, unstageable; N32.89 Other specified disorders of bladder; B96.4 Proteus (mirabilis) (morganii) as the cause of diseases classified elsewhere; E88.09 Other disorders of plasma-protein metabolism, not elsewhere classified
CPT/HCPCS: 36415; 70450-TC; 71010-TC; 80048-TC; 80053-TC; 80061-TC; 80076-TC; 81000-TC; 83605-TC; 83735-TC; 84100-TC; 84443-TC; 84484-TC; 85025-TC; 85730-TC; 87040-TC; 87081-TC; 87086-TC; 87186-TC; A6402; J0696; J1650; J2543; J3475; J7030; J7042; J7060; J7070

== ENCOUNTER 2017-03-04 18:26 | Inpatient (IN) | payer MEDICAID, MEDICARE, OTHER ==
[~2017-03-04] VITALS: Ht 165.1 cm; Wt 63.5 kg
[~2017-03-04 18:26] MED LIST changes: +ACET325T53 PO; +ALBU2.5V13 IH; +AMIN30LI2 PO; +ATOR40TA PO; +BISA10SU8 RC; +CEPH-569 PO; +FLUT16SP16 NS; +GUAI5SYR PO; +HYDR-548 PO; +HYDR-552 PO; +HYDR2TAB35 PO; +IBAN150T PO; -LEVO125T8 PO; +LEVO75TA7 PO; +MAGN400O6 PO; +MEGE400O PO; +NA P133E RC; +ONDA4TAB5 PO; +POLY17PO4 PO; +PREG75CA PO; -ROSU20TA28 PO; +VIT1CAPS32 PO
[2017-03-04] MEDS ORDERED: IV NS 0.9% 500 ML BAG IV ONE (18:30)
--- NOTE | 2017-03-04 18:33 | NUR ---
MISAEL FROM [facility] DT ALTERED MENTAL STATUS. PER REPORT, PATIENT IS MORE ALTERED THAN USUAL. PATIENT RECEIVED ALERT, HOWEVER NONM VERBAL. SKIN IS WARM TO TOUCH AND NON DIAPHORETIC. PATIENT SATING WELL ON ROOM AIR. GOWNED PT AND PLACED ON TELE MONITOR. VSS
[2017-03-04] MEDS ORDERED: FLUO10CA26 PO (18:47)
[2017-03-04 18:48] LABS: BASOPHILS # (AUTO) 0.1 /CMM (0.0-0.2); BASOPHILS % (AUTO) 0.5 % (0.0-2.0); EOSINOPHILS # (AUTO) 0.1 /CMM (0.0-0.7); EOSINOPHILS % (AUTO) 1.3 % (0.0-6.0); HEMATOCRIT 35 % (33-45); HEMOGLOBIN 11.2 g/dL (11.5-14.8); LYMPHOCYTES # (AUTO) 4.4 /CMM (0.8-4.8); LYMPHOCYTES % (AUTO) 42.2 % (20.0-44.0); MEAN CORPUSCULAR HEMOGLOBIN 26 PG (26.0-33.0); MEAN CORPUSCULAR HGB CONC 32 g/dl (31.0-36.0); MEAN CORPUSCULAR VOLUME 82 fL (82-100); MONOCYTES # (AUTO) 0.8 /CMM (0.1-1.30); MONOCYTES % (AUTO) 7.5 % (2.0-12.0); NEUTROPHILS % (AUTO) 48.5 % (43.0-81.0); PLATELET COUNT (AUTO) 529 /CMM (150-450); RDW COEFFICIENT OF VARIATION 19.5 (11.5-15.0); RED BLOOD CELL COUNT(AUTO) 4.28 MIL/uL (4.0-5.2); WHITE BLOOD COUNT (AUTO) 10.4 K/uL (4.3-11.0)
--- NOTE | 2017-03-04 18:48 | NUR ---
IV ACCESSED TO RAC 20
--- NOTE | 2017-03-04 18:49 | NUR ---
SLUBBER HAND AT BS
[2017-03-04 19:03] LABS: INR 1.01 (0.87-1.13); PROTHROMBIN TIME 10.5 SECS (9.5-12.7)
[2017-03-04 19:08] LABS: TROPONIN I < 0.017 ng/mL (0.00-0.056)
--- NOTE | 2017-03-04 19:15 | NUR ---
REPORT GIVEN TO ALICIA KHALIL FOR NAZ
--- NOTE | 2017-03-04 19:16 | NUR ---
Assumed care of pt. pt lying in bed w/ resp even & unlabored, nonverbal w/ no acute distress noted. On continuous monitoring.
[2017-03-04 19:32] LABS: ALANINE AMINOTRANSFERASE 9 U/L (12-78); ALBUMIN 2.1 g/dL (3.4-5.0); ALKALINE PHOSPHATASE 76 U/L (46-116); ASPARTATE AMINOTRANSFERASE 14 U/L (15-37); BILIRUBIN,DIRECT 0.1 mg/dL (0.0-0.2); BILIRUBIN,TOTAL 0.2 mg/dL (0.2-1.0); CALCIUM, SERUM 10.1 mg/dL (8.5-10.1); CARBON DIOXIDE 23 mmol/L (21-32); CHLORIDE 121 mmol/L (98-107); GLUCOSE 128 mg/dL (74-106); POTASSIUM 3.7 mmol/L (3.5-5.1); SODIUM SERUM 153 mmol/L (136-145); TOTAL PROTEIN, SERUM 7.1 g/dL (6.4-8.2); UREA NITROGEN, BLOOD 26 mg/dL (7-18)
--- NOTE | 2017-03-04 19:42 | NUR ---
16FR FC started, Urine obtained & sent to lab. FC discontinued. Perineal care provided, linens changed w/ gown. On continuous monitoring.
[2017-03-04 20:09] LABS: APPEARANCE,URINE Cloudy (CLEAR); BILIRUBIN,URINE Negative (NEGATIVE); BLOOD, URINE Large Ery/uL (NEGATIVE); COLOR,URINE Yellow (YELLOW); KETONES,URINE Negative (NEGATIVE); LEUKOCYTE ESTERASE ,URINE Large (NEGATIVE); NITRITE, URINE Negative (NEGATIVE); PH,URINE 7.5 (5.0-8.0); PROTEIN,URINE 100 mg/dl (NEGATIVE); UGLUCOSE Negative (NEGATIVE); UROBILINOGEN,URINE 0.2 EU/dL (0.2)
--- NOTE | 2017-03-04 20:11 | NUR ---
pt incontinent of urine and small brown bm. perineal care provided w/ linens and gown changed.
[2017-03-04 20:24] LABS: BACTERIA,URINE 1+ /HPF (None Seen); RBC,URINE 51-80 /HPF (0-2); SQUAMOUS EPITHELIAL CELL,UR Few /HPF (None Seen); WBC,URINE TOO NUMEROUS TO COUN /HPF (0-3)
[2017-03-04] MEDS ORDERED: CEFTRIAXONE 1GM BAG (ER ONLY) 50 ML IV ONE (20:55)
--- NOTE | 2017-03-04 20:56 | NUR ---
BLOOD CULTURES DRAWN PRIOR TO IV ABX ADMINISTRATION.
[2017-03-04] MEDS ORDERED: CEFTRIAXONE 1 G in IV D5W 50 ML IV ONE (21:00)
--- NOTE | 2017-03-04 21:27 | NUR ---
Report given to ALICIA Payan for pt admission to [facility] [id number].
[2017-03-04] MEDS ORDERED: ACETAMINOPHEN 650 MG/20.3 ML UDC NG PRN ×2 (21:30→21:45)
[2017-03-04] MEDS ORDERED: IV NS 0.9% 1,000 ML BAG IV ONE ×2 (21:30)
[2017-03-04] MEDS ORDERED: ONDANSETRON HCL/PF 4 MG/2 ML VIAL IVP PRN ×2 (21:30→21:45)
[2017-03-04] MEDS ORDERED: MORPHINE SULFATE INJ 2 MG/ML DISP.SYRIN IV PRN (21:30)
[2017-03-04] MEDS ORDERED: CEFTRIAXONE 1 G in IV D5W 50 ML IV SCH ×2 (21:30→21:45)
[2017-03-04] MEDS ORDERED: ALBUTEROL FS 2.5 MG/0.5 ML VIAL.NEB NEB PRN ×2 (21:30→21:45)
[2017-03-04] MEDS ORDERED: LORAZEPAM INJ 2 MG/ML VIAL IVP PRN (21:30)
[2017-03-04 22:00] VITALS: BP 141/75
--- NOTE | 2017-03-04 22:00 | NUR ---
SUGAR LABORATORY ASSISTANT NOTE RECEIVED PATIENT FROM ER VIA DRAKERLUIS, PATIENT IS ALERT AND ORIENTEDX1, MOSTLY NON-VERBAL, RESPONSIVE TO HER NAME AND TOUCH, CONGESTED LUNG SOUND NOTED, O2 SATTING 99% RA. IV ON RIGHT AC, RIGHT HAND AND LEFT WRIST ARE INTACT AND PATENT, WILL CONNECT THE FLUID. TELE MONITOR SR 80. SACRAL WOUND AND BLE DISCOLORATION NOTED, PICTURES TAKEN AND PUT THEM IN A CHART. SRX2, BED IN LOW POSITION, CALL LIGHT WITHIN REACH, WILL CONTINUE TO MONITOR PATIENT.
[2017-03-05 00:30] VITALS: BP 155/83
[2017-03-05 04:00] VITALS: BP 148/80
--- NOTE | 2017-03-05 06:56 | NUR ---
MANAGER RESORT NOTE PATIENT IS SLEEPING AT THIS TIME, NO S/S OF RESPIRATORY DISTRESS AND NO FACIAL GRIMACE NOTED. MORNING CARE RENDERED, TURN AND REPOSITION THE PATIENT Q2H. WILL ENDORSE TO DAY SHIFT NURSE FOR NAZ.
[2017-03-05 07:34] LABS: BASOPHILS # (AUTO) 0.1 /CMM (0.0-0.2); BASOPHILS % (AUTO) 0.6 % (0.0-2.0); EOSINOPHILS # (AUTO) 0.2 /CMM (0.0-0.7); EOSINOPHILS % (AUTO) 1.9 % (0.0-6.0); HEMATOCRIT 33 % (33-45); HEMOGLOBIN 10.3 g/dL (11.5-14.8); LYMPHOCYTES # (AUTO) 4.1 /CMM (0.8-4.8); LYMPHOCYTES % (AUTO) 41.9 % (20.0-44.0); MEAN CORPUSCULAR HEMOGLOBIN 26 PG (26.0-33.0); MEAN CORPUSCULAR HGB CONC 31 g/dl (31.0-36.0); MEAN CORPUSCULAR VOLUME 84 fL (82-100); MONOCYTES # (AUTO) 0.7 /CMM (0.1-1.30); NEUTROPHILS # (AUTO) 4.8 /CMM (1.8-8.9); NEUTROPHILS % (AUTO) 48.6 % (43.0-81.0); PLATELET COUNT (AUTO) 441 /CMM (150-450); RDW COEFFICIENT OF VARIATION 21.8 (11.5-15.0); RED BLOOD CELL COUNT(AUTO) 3.95 MIL/uL (4.0-5.2); WHITE BLOOD COUNT (AUTO) 9.8 K/uL (4.3-11.0)
[2017-03-05 07:52] LABS: ALANINE AMINOTRANSFERASE 11 U/L (12-78); ALKALINE PHOSPHATASE 67 U/L (46-116); ASPARTATE AMINOTRANSFERASE 12 U/L (15-37); BILIRUBIN,TOTAL 0.2 mg/dL (0.2-1.0); CALCIUM, SERUM 10.1 mg/dL (8.5-10.1); CARBON DIOXIDE 22 mmol/L (21-32); CREATININE 0.8 mg/dL (0.6-1.3); GLUCOSE 93 mg/dL (74-106); POTASSIUM 3.4 mmol/L (3.5-5.1); TOTAL PROTEIN, SERUM 6.7 g/dL (6.4-8.2); UREA NITROGEN, BLOOD 22 mg/dL (7-18)
[2017-03-05 07:57] LABS: CHLORIDE 126 mmol/L (98-107); SODIUM SERUM 158 mmol/L (136-145)
[2017-03-05 08:00] VITALS: BP 140/75
--- NOTE | 2017-03-05 08:00 | NUR ---
PROJECT BUILDER NOTES PATIENT SLEEPING IN BED, NO S/S OF PAIN, NO ACUTE DISTRESS OR DISCOMFORT NOTED. PERIPHERAL IV LINE ON RAC, INTACT PATENT. CALL LIGHT WITHIN REACH. BED IN LOW LOCKED POSITION. MONITORING CLOSELY.
[2017-03-05 08:08] LABS: CREATINE KINASE, TOTAL 13 U/L (26-192)
[2017-03-05 08:13] LABS: INR 1.01 (0.87-1.13); PROTHROMBIN TIME 10.8 SECS (9.5-12.7)
[2017-03-05] MEDS ORDERED: PANTOPRAZOLE 40 MG VIAL IV SCH ×2 (09:00)
[2017-03-05] MEDS: FAMOTIDINE/PF INJ 20 MG/2 ML VIAL IV SCH ×2 (09:26→20:46)
[2017-03-05] MEDS: POTASSIUM CL. PREMIX PERIPHER. 50 ML IV SCH ×2 (10:37→12:04)
--- NOTE | 2017-03-05 11:00 | NUR ---
MS RN SPEECH THERAPY DONE W/ PUREE W/ THICKENER RECOMMENDED.
[2017-03-05] MEDS: HYDROGEL DRESSING 90 GM TUBE TP SCH (12:30)
--- NOTE | 2017-03-05 12:30 | NUR ---
MS RN PATIENT'S MEDS GIVEN, TOLERATED WELL.FAMILY AT BEDSIDE.
--- NOTE | 2017-03-05 12:32 | NUR ---
WOUND CARE CONSULT: PT PRESENTS WITH SACRAL SCARRING AND STAGE 2 ULCERS TO BILATERAL BUTTOCKS, PRESENT ON ADMISSION. RECOMMENDATIONS MADE FOR SKIN PROTECTION AND WOUND CARE. DISCUSSED WITH NURSING STAFF. ISOFLEX LOW AIRLOSS BED TO BE PLACED WHEN AVAILABLE. WILL SEE PRN. RUST IN AGREEMENT WITH PLAN OF CARE. CURRENT MARY SCORE 14. Addendum: 03/05/17 at 1245 by JAYDEN CARRERA WNDNU Amended: Links added.
[2017-03-05] MEDS ORDERED: Z GUARD REMEDY 2 OZ OINT TP PRN (13:00)
[2017-03-05] MEDS: Z GUARD REMEDY 2 OZ OINT TP SCH (13:46)
[2017-03-05] MEDS: HYDROGEL DRESSING 90 GM TUBE TP PRN ×2 (13:47→13:53)
--- NOTE | 2017-03-05 14:30 | NUR ---
TELE MS NURSE PATIENT RESTING IN BED. NO C/O PAIN, NO DISCOMFORT NOTED. LAB RESULT SHOWED LOW POTASSIUM LEVEL, MD NOTIFIED WITH NEW ORDER TO REPLACE POTASSIUM. NOTED & CARRIED OUT. REPOSITIONED IN BED. ASSESSED BY WOUND DIRECTOR DATA ANALYTICS WITH NEW ORDERS. NOTED & CARRIED OUT. MONITORING CLOSELY.
[2017-03-05 16:00] VITALS: BP 152/88
--- NOTE | 2017-03-05 18:48 | NUR ---
MS RN ON BED, NO DISTRESS NOTED,ALL NEEDS ATTENDED.
[2017-03-05] MEDS: IV D5W 1,000 ML IV PRN (18:59)
--- NOTE | 2017-03-05 19:30 | NUR ---
RN NOTES RECEIVED PATIENT IN BED AWAKE, AO X 3, NON-VERBAL. NO ACUTE DISTRESS NOTED. NO SIGNS OF PAIN NOTED. TELE READING SINUS TACH HR 117. IV SITE PATENT, INTACT; IVF INFUSING ORDERED. CONTACT ISOLATION FOR MRSA NARES MAINTAINED. ON LOW BED WITH BILATERAL UPPER SIDE RAILS UP. CALL LIGHT WITHIN EASY REACH. WILL CONTINUE TO MONITOR.
[2017-03-05 20:00] VITALS: BP 156/96
--- NOTE | 2017-03-05 20:15 | NUR ---
RN NOTES DR. AGUIRRE MADE AWARE THAT PATIENT HAS DVT IN BOTH LOWER EXTREMITIES PER ULTRASOUND RESULT. NEW ORDER RECEIVED FOR LOVENOX 1 MG/1KG PHARMACY TO DOSE, NOTED AND CARRIED OUT.
[2017-03-05] MEDS: CEFTRIAXONE 1 G in IV D5W 50 ML IV SCH (20:47)
[2017-03-05] MEDS: ENOXAPARIN SODIUM 60 MG/0.6 ML DISP.SYRIN SQ SCH (20:47)
[2017-03-05] MEDS ORDERED: HEPARIN SODIUM, PORCINE 5000 UNITS/1 ML VIAL SQ SCH (21:00)
--- NOTE | 2017-03-05 22:01 | NUR ---
Patient is a resident of [address] [place] [address] . She requires assistance with adl's. Family is involved and supportive, current dc plan is to return to [address] [place] [address] once discharge. Addendum: 03/05/17 at 2202 by RONNELL RIVERA RN Amended: Links added.
[2017-03-05] MEDS: LORAZEPAM INJ 2 MG/ML VIAL IVP PRN (22:03)
[2017-03-06] VITALS (7 sets, daily range): BP systolic 128–158; BP diastolic 67–92
--- NOTE | 2017-03-06 06:12 | NUR ---
RN NOTES PATIENT ASLEEP, EASILY AROUSABLE. RESPIRATIONS EVEN. NO SIGNS OF PAIN NOTED. DUE MEDS GIVEN WITH NO ASE NOTED. NEEDS ATTENDED. REPOSITIONED Q 2 HOURS. SAFETY PRECAUTIONS AND COMFORT MEASURES IN PLACE. WILL GIVE REPORT TO DAY SHIFT FOR CONTINUITY OF CARE.
[2017-03-06 06:40] LABS: BASOPHILS # (AUTO) 0.1 /CMM (0.0-0.2); BASOPHILS % (AUTO) 0.6 % (0.0-2.0); EOSINOPHILS # (AUTO) 0.3 /CMM (0.0-0.7); EOSINOPHILS % (AUTO) 2.6 % (0.0-6.0); HEMATOCRIT 33 % (33-45); HEMOGLOBIN 10.4 g/dL (11.5-14.8); MEAN CORPUSCULAR HEMOGLOBIN 27 PG (26.0-33.0); MEAN CORPUSCULAR HGB CONC 32 g/dl (31.0-36.0); MEAN CORPUSCULAR VOLUME 84 fL (82-100); MONOCYTES # (AUTO) 0.7 /CMM (0.1-1.30); NEUTROPHILS # (AUTO) 4.5 /CMM (1.8-8.9); NEUTROPHILS % (AUTO) 42.8 % (43.0-81.0); PLATELET COUNT (AUTO) 427 /CMM (150-450); RDW COEFFICIENT OF VARIATION 21.9 (11.5-15.0); RED BLOOD CELL COUNT(AUTO) 3.93 MIL/uL (4.0-5.2); WHITE BLOOD COUNT (AUTO) 10.6 K/uL (4.3-11.0)
[2017-03-06] MEDS: IV D5W 1,000 ML IV PRN ×2 (06:48→21:09)
--- NOTE | 2017-03-06 07:30 | NUR ---
received pt. alert and oriented x1,non verbal,vs stable.no distress noted.iv infusing.
[2017-03-06 07:40] LABS: CALCIUM, SERUM 9.7 mg/dL (8.5-10.1); CARBON DIOXIDE 21 mmol/L (21-32); CHLORIDE 122 mmol/L (98-107); CREATININE 0.7 mg/dL (0.6-1.3); GLUCOSE 94 mg/dL (74-106); POTASSIUM 3.5 mmol/L (3.5-5.1); SODIUM SERUM 154 mmol/L (136-145); UREA NITROGEN, BLOOD 16 mg/dL (7-18)
[2017-03-06] MEDS: ENOXAPARIN SODIUM 60 MG/0.6 ML DISP.SYRIN SQ SCH ×2 (09:06→21:11)
[2017-03-06] MEDS: HYDROGEL DRESSING 90 GM TUBE TP SCH (09:07)
[2017-03-06] MEDS: Z GUARD REMEDY 2 OZ OINT TP SCH (09:07)
[2017-03-06] MEDS: FAMOTIDINE/PF INJ 20 MG/2 ML VIAL IV SCH ×2 (09:21→21:11)
--- NOTE | 2017-03-06 11:00 | NUR ---
da solution advisor in to see pt.
--- NOTE | 2017-03-06 15:30 | NUR ---
REGINALDO RODRIGUEZ INFORMED OF BLOOD CULTURE SHOWING GM POSITIVE COCCI .ADDITIONALLY AWARE PT. ON ROCEPHIN.NO ORDERS AT THIS TIME.
--- NOTE | 2017-03-06 18:20 | NUR ---
NO CHANGE IN STATUS.
--- NOTE | 2017-03-06 19:40 | NUR ---
ANDROID PROGRAMMER NOTE RECEIVED PATIENT FROM DAY SHIFT, PATIENT IS ALERT AND RESPONSIVE, NO S/S OF RESPIRATORY DISTRESS OR PAIN AT THIS TIME. 3 IV SITES ARE PATENT AND INTACT, FLUID IS RUNNING. TELE MONITOR SR 80. SRX2, BED IN LOW POSITION, CALL LIGHT WITHIN REACH, WILL CONTINUE TO MONITOR PATIENT.
[2017-03-06] MEDS: CEFTRIAXONE 1 G in IV D5W 50 ML IV SCH (21:09)
[2017-03-07] VITALS: BP 125/69
--- NOTE | 2017-03-07 | NUR ---
SLACKMAN NOTE PATIENT'S IS ASKING TO GIVE HER PAIN MED. ASSESSED THE NEED OF IT, WHEN PT WAS ASKED IF SHE HAS PAIN, SHE NODDED HER HEAD AND POINTED TO HER ABDOMEN. VS STABLE, BP 125/69 PULSE 96, O2 95%, MORPHINE 2MG IVP GIVEN. WILL MONITOR FOR EFFECTIVENESS.
[2017-03-07 06:27] LABS: BASOPHILS % (AUTO) 0.3 % (0.0-2.0); EOSINOPHILS # (AUTO) 0.1 /CMM (0.0-0.7); EOSINOPHILS % (AUTO) 0.6 % (0.0-6.0); HEMATOCRIT 31 % (33-45); LYMPHOCYTES # (AUTO) 4.8 /CMM (0.8-4.8); LYMPHOCYTES % (AUTO) 40.6 % (20.0-44.0); MEAN CORPUSCULAR HEMOGLOBIN 27 PG (26.0-33.0); MEAN CORPUSCULAR HGB CONC 32 g/dl (31.0-36.0); MEAN CORPUSCULAR VOLUME 82 fL (82-100); MONOCYTES # (AUTO) 0.7 /CMM (0.1-1.30); MONOCYTES % (AUTO) 5.8 % (2.0-12.0); NEUTROPHILS # (AUTO) 6.3 /CMM (1.8-8.9); NEUTROPHILS % (AUTO) 52.7 % (43.0-81.0); PLATELET COUNT (AUTO) 445 /CMM (150-450); RDW COEFFICIENT OF VARIATION 22.3 (11.5-15.0); RED BLOOD CELL COUNT(AUTO) 3.78 MIL/uL (4.0-5.2); WHITE BLOOD COUNT (AUTO) 11.9 K/uL (4.3-11.0)
--- NOTE | 2017-03-07 06:48 | NUR ---
REGRINDER OPERATOR NOTE PATIENT IS AWAKE, RESTING IN BED COMFORTABLY, NO S/S OF RESPIRATORY DISTRESS AND NO FACIAL GRIMACE NOTE. 3 IV SITES ARE PATENT AND INTACT, FLUID IS RUNNING. MORNING CARE RENDERED, REPOSITION AND TURN Q2H. WILL ENDORSE TO DAY SHIFT NURSE FOR NAZ.
[2017-03-07 07:02] VITALS: BP 130/78
[2017-03-07 07:05] LABS: CALCIUM, SERUM 9.6 mg/dL (8.5-10.1); CARBON DIOXIDE 21 mmol/L (21-32); CHLORIDE 113 mmol/L (98-107); CREATININE 0.7 mg/dL (0.6-1.3); GLUCOSE 105 mg/dL (74-106); POTASSIUM 3.6 mmol/L (3.5-5.1); SODIUM SERUM 144 mmol/L (136-145); UREA NITROGEN, BLOOD 14 mg/dL (7-18)
--- NOTE | 2017-03-07 07:30 | NUR ---
RN NOTES RECEIVED PATIENT AWAKE ALERT AND VERBALLY RESPONSIVE, CONFUSED, ABLE TO MAKE NEEDS KNOWN RESPIRATIONS EVEN AND UNLABORED, DENIES ANY PAIN OR DISCOMFORT AT THIS TIME. IV ACCESS PATENT AND INTACT NO REDNESS OR INFILTRATION NOTED. SAFETY MEASURES IN PLACE, CALL LIGHT WITHIN EASY REACH, WILL CONTINUE TO MONITOR
[2017-03-07 08:00] VITALS: BP 130/78
[2017-03-07] MEDS: FAMOTIDINE/PF INJ 20 MG/2 ML VIAL IV SCH ×2 (08:42→21:24)
[2017-03-07] MEDS: Z GUARD REMEDY 2 OZ OINT TP SCH (08:42)
[2017-03-07] MEDS: HYDROGEL DRESSING 90 GM TUBE TP SCH (08:43)
[2017-03-07] MEDS: ENOXAPARIN SODIUM 60 MG/0.6 ML DISP.SYRIN SQ SCH ×2 (08:44→21:26)
[2017-03-07 12:00] VITALS: BP 128/81
[2017-03-07] MEDS: MORPHINE SULFATE INJ 2 MG/ML DISP.SYRIN IV PRN ×3 (13:31→18:45)
[2017-03-07 16:00] VITALS: BP 131/84
--- NOTE | 2017-03-07 18:55 | NUR ---
RN NOTES PATIENT AWAKE ALERT AND VERBALLY RESPONSIVE, CONFUSED, ABLE TO MAKE NEEDS KNOWN RESPIRATIONS EVEN AND UNLABORED, DENIES ANY PAIN OR DISCOMFORT AT THIS TIME. IV ACCESS PATENT AND INTACT NO REDNESS OR INFILTRATION NOTED. PATIENT TAKEN FOR CT IN STABLE CONDITION SAFETY MEASURES IN PLACE,WILL ENDORSE TO NEXT SHIFT FOR CONTINUITY OF CARE
--- NOTE | 2017-03-07 19:31 | NUR ---
NEUROLOGY DIRECTOR NOTE RECEIVED PATIENT FROM DAY SHIFT, PATIENT IS ALERT AND RESPONSIVE, NO S/S OF RESPIRATORY DISTRESS OR PAIN AT THIS TIME. CAT SCAN COMPLETED. 3 IV SITES ARE PATENT AND INTACT, HL ONLY. TELE MONITOR SR 92. SRX2, BED IN LOW POSITION, CALL LIGHT WITHIN REACH, WILL CONTINUE TO MONITOR PATIENT.
[2017-03-07 20:00] VITALS: BP 137/85
[2017-03-07] MEDS: CEFTRIAXONE 1 G in IV D5W 50 ML IV SCH (21:25)
[2017-03-07] MEDS: LORAZEPAM INJ 2 MG/ML VIAL IVP PRN (21:39)
--- NOTE | 2017-03-07 21:40 | NUR ---
VALIDATION MANAGER NOTE PATIENT LOOKS ANXIOUS, SHAKES HER UPPER EXTREMITIES. ATIVAN 0.5MG IVP GIVEN. WILL MONITOR EFFECTIVENESS.
[2017-03-08] VITALS: BP 144/83
[2017-03-08 04:00] VITALS: BP 150/84
[2017-03-08 06:00] VITALS: BP 158/82
[2017-03-08 06:35] LABS: BASOPHILS # (AUTO) 0.1 /CMM (0.0-0.2); BASOPHILS % (AUTO) 0.7 % (0.0-2.0); EOSINOPHILS # (AUTO) 0.4 /CMM (0.0-0.7); EOSINOPHILS % (AUTO) 4.6 % (0.0-6.0); HEMATOCRIT 33 % (33-45); HEMOGLOBIN 10.7 g/dL (11.5-14.8); LYMPHOCYTES # (AUTO) 4.9 /CMM (0.8-4.8); LYMPHOCYTES % (AUTO) 51.5 % (20.0-44.0); MEAN CORPUSCULAR HEMOGLOBIN 27 PG (26.0-33.0); MEAN CORPUSCULAR HGB CONC 32 g/dl (31.0-36.0); MEAN CORPUSCULAR VOLUME 83 fL (82-100); MONOCYTES # (AUTO) 0.7 /CMM (0.1-1.30); MONOCYTES % (AUTO) 7.1 % (2.0-12.0); NEUTROPHILS # (AUTO) 3.5 /CMM (1.8-8.9); NEUTROPHILS % (AUTO) 36.1 % (43.0-81.0); PLATELET COUNT (AUTO) 433 /CMM (150-450); RDW COEFFICIENT OF VARIATION 22.3 (11.5-15.0); RED BLOOD CELL COUNT(AUTO) 4.02 MIL/uL (4.0-5.2); WHITE BLOOD COUNT (AUTO) 9.6 K/uL (4.3-11.0)
--- NOTE | 2017-03-08 06:47 | NUR ---
GAS TREATER NOTE PATIENT IS AWAKE, RESTING IN BED COMFORTABLY, NO S/S OF RESPIRATORY DISTRESS AND NO FACIAL GRIMACE NOTE. IV SITE ON LEFT FA IS PATENT AND INTACT, FLUID IS RUNNING. MORNING CARE RENDERED, REPOSITION AND TURN Q2H. WILL ENDORSE TO DAY SHIFT NURSE FOR NAZ.
[2017-03-08 06:48] LABS: CHOLESTEROL 132 mg/dL (<200); HDL CHOLESTEROL 33 mg/dL (40-60); LDL 87 mg/dL (0-99); TRIGLYCERIDES 78 mg/dL (30-150)
[2017-03-08 07:11] LABS: CALCIUM, SERUM 9.9 mg/dL (8.5-10.1); CHLORIDE 112 mmol/L (98-107); CREATININE 0.7 mg/dL (0.6-1.3); GLUCOSE 69 mg/dL (74-106); POTASSIUM 3.9 mmol/L (3.5-5.1); SODIUM SERUM 144 mmol/L (136-145); UREA NITROGEN, BLOOD 13 mg/dL (7-18)
[2017-03-08 07:26] LABS: CARBON DIOXIDE 19 mmol/L (21-32)
--- NOTE | 2017-03-08 07:45 | NUR ---
ADVANCED PRACTICE NURSE: INITIAL NOTE RECEIVED PT A/OX 1. TELE AT SR OF 83. NO DISTRESS NOTED. NO SOB NOTED. NO PAIN NOTED. L WRIST 20G WITH NO IV FLUIDS RUNNING. NO N/V NOTED. RESTING COMFORTABLY IN BED. CALL LIGHT WITHIN REACH.
[2017-03-08] MEDS: ENOXAPARIN SODIUM 60 MG/0.6 ML DISP.SYRIN SQ SCH (08:44)
[2017-03-08] MEDS: FAMOTIDINE/PF INJ 20 MG/2 ML VIAL IV SCH (08:45)
[2017-03-08] MEDS: Z GUARD REMEDY 2 OZ OINT TP SCH (08:45)
[2017-03-08] MEDS: HYDROGEL DRESSING 90 GM TUBE TP SCH (08:46)
[2017-03-08] MEDS ORDERED: CEFT1FRO2 IV (10:54)
[2017-03-08] MEDS ORDERED: ENOX60DI SQ (10:54)
[2017-03-08 16:00] VITALS: BP 144/82
[2017-03-08] MEDS: MORPHINE SULFATE INJ 2 MG/ML DISP.SYRIN IV PRN (16:14)
--- NOTE | 2017-03-08 16:55 | NUR ---
RANJITH TOVAR RN: DISCHARGE NOTES PT D/C TO [facility] FOR FURTHER CARE. A/O X1. NO SOB. ON 2L NC SATING AT 94%. NO DISTRESS NOTED. ALL MEDICATIONS ADMINISTERED BEFORE LEAVING. IV SITE ON LEFT WRIST D/C. NO INFILTRATION. NO REDNESS. NO BLEEDING NOTED. PAIN CONTROLLED WITH PAIN MANAGEMENT. ALL DISCHARGE PAPERS SIGNED WITH TWO NURSES DUE TO INABILITY OF PATIENT TO DO SO. TRANSPORTED BY TWO EMT. REPORT GIVEN TO XIMENA AT [facility]. ALL BELONGINGS ACCOUNTED FOR. COPIES OF D/C INFORMATION SENT TO [facility]. DAUGHTER ARIANA NOTIFIED. .
== END 2017-03-08 17:00 | DRG 682 ==
LOC: ER 18:27 → TELE 22:37 → MED 03-08 08:30
PROVIDERS: ADMIT Internal Medicine; ATTEND Internal Medicine
DX: N17.0 Acute kidney failure with tubular necrosis (principal); G93.41 Metabolic encephalopathy; L89.312 Pressure ulcer of right buttock, stage 2; E44.0 Moderate protein-calorie malnutrition; I82.413 Acute embolism and thrombosis of femoral vein, bilateral; E87.0 Hyperosmolality and hypernatremia; L89.322 Pressure ulcer of left buttock, stage 2; F03.90 Unspecified dementia, unspecified severity, without behavioral disturbance, psychotic disturbance, mood disturbance, and anxiety; N39.0 Urinary tract infection, site not specified; E87.6 Hypokalemia; Z88.4 Allergy status to anesthetic agent; Z88.1 Allergy status to other antibiotic agents; Z91.041 Radiographic dye allergy status; Z88.5 Allergy status to narcotic agent; Z88.2 Allergy status to sulfonamides; Z91.018 Allergy to other foods; E86.0 Dehydration; E03.9 Hypothyroidism, unspecified; D63.8 Anemia in other chronic diseases classified elsewhere; G89.4 Chronic pain syndrome; I10 Essential (primary) hypertension; I25.10 Atherosclerotic heart disease of native coronary artery without angina pectoris; I73.9 Peripheral vascular disease, unspecified; I87.8 Other specified disorders of veins; J44.9 Chronic obstructive pulmonary disease, unspecified; K59.00 Constipation, unspecified; M19.90 Unspecified osteoarthritis, unspecified site; M79.7 Fibromyalgia; Z79.899 Other long term (current) drug therapy; Z79.01 Long term (current) use of anticoagulants; M54.30 Sciatica, unspecified side; Z87.440 Personal history of urinary (tract) infections; Z86.73 Personal history of transient ischemic attack (TIA), and cerebral infarction without residual deficits; Z87.442 Personal history of urinary calculi; R23.4 Changes in skin texture
CPT/HCPCS: 36415; 70450-TC; 71010-TC; 80048-TC; 80053-TC; 80061-TC; 80076-TC; 81000-TC; 82550-TC; 83605-TC; 84484-TC; 85025-TC; 85385-TC; 85610-TC; 85730-TC; 87040-TC; 87081-TC; 87086-TC; 92521; 92526; 93307-TC; 93970-TC; A6248; A6403; J0696; J1650; J2060; J2270; J3480; J3490; J7030; J7040; J7042; J7060; J7070

== ENCOUNTER 2019-06-13 23:22 | Inpatient (IN) | payer OTHER ==
[~2019-06-13] VITALS: Ht 144.8 cm; Wt 108.4 kg
[~2019-06-13 23:22] MED LIST changes: -ALBU8.5H2 INH; +ALBU8.5H8 INH; +CEFT1FRO2 IV; -CEPH-569 PO; +CLOP75TA15 PO; -CLOP75TA2 PO; +CRAN1CAP6 PO; +ENOX60DI SQ; +FLUO10CA26 PO; +HYDR-4354 PO; +HYDR-4384 PO; -HYDR-548 PO; -HYDR-552 PO; -HYDR2TAB35 PO; -IBAN150T PO; +IBAN150T16 PO; -VIT1CAPS32 PO; -ZOLP5TAB7 PO
[2019-06-13] MEDS ORDERED: IPRATROPIUM NEB FS 0.5 MG/2.5 ML AMPUL.NEB NEB ONE (23:30)
[2019-06-13] MEDS ORDERED: ALBUTEROL FS 2.5 MG/3 ML VIAL.NEB NEB ONE (23:30)
[2019-06-13] MEDS ORDERED: methylPREDNISolone SOD SUCC 125 MG/2ML VIAL IV ONE (23:30)
[2019-06-13 23:45] LABS: BASOPHILS # (AUTO) 0.1 /CMM (0.0-0.2); BASOPHILS % (AUTO) 1.2 % (0.0-2.0); EOSINOPHILS % (AUTO) 3.2 % (0.0-6.0); HEMATOCRIT 37 % (33-45); HEMOGLOBIN 11.8 g/dL (11.5-14.8); LYMPHOCYTES # (AUTO) 1.6 /CMM (0.8-4.8); LYMPHOCYTES % (AUTO) 21.1 % (20.0-44.0); MEAN CORPUSCULAR HGB CONC 32 g/dl (31.0-36.0); MEAN CORPUSCULAR VOLUME 84 fL (82-100); MONOCYTES # (AUTO) 0.7 /CMM (0.1-1.30); MONOCYTES % (AUTO) 8.9 % (2.0-12.0); NEUTROPHILS # (AUTO) 5.1 /CMM (1.8-8.9); NEUTROPHILS % (AUTO) 65.6 % (43.0-81.0); PLATELET COUNT (AUTO) 198 /CMM (150-450); RED BLOOD CELL COUNT(AUTO) 4.36 MIL/uL (4.0-5.2); WHITE BLOOD COUNT (AUTO) 7.8 K/uL (4.3-11.0)
--- NOTE | 2019-06-13 23:50 | NUR ---
IV LINE OBTAINED ON THE R AC 18G
--- NOTE | 2019-06-13 23:55 | NUR ---
[facility] TO ER BED 8. AAOx2. PRESENTED ON CPAP. ARRIVED ON GURNEY. BROUGHT IN FOR SOB. PT WAS REPORTED TO BE HAVING COUGH FOR THE PAST SEVERAL DAYS. UNTIL TODAY SAND MIXER MACHINE PT STARTED TO HAVE SOB. PT HAS BASELINE 02 VIA NC AT THE [facility]. PT WAS PLACED ON CPAP BYS AND UPGRADE TO BIPAP UPON ARRIVAL. PT NOTED WITH GENERALIZED EDEMA. LUNG SOUNDS REVEAL CRAKLES. WAS AT BEDSIDE FOR EVAL. ORDERS RECEIVED NOTED AND CARRIED OUT. IV LINE OBTAINED ON THE R AC 20G. BLOOD DRAWN AND GIVEN TO STATEMENT REQUEST CLERK AT BEDSIDE. WILL CONTINUE TO MONITOR PT
[2019-06-14] VITALS (35 sets, daily range): BP systolic 85–124; BP diastolic 24–85
--- NOTE | 2019-06-14 | NUR ---
RT NOTE Pt rec'd in cpap mask @ 15lpm from [employer]. Pt tachycardic and lethargic. coarse crackles heard throughout all lung cazares. Pt placed on bipap per md orders on noted settings as charted. Alarms are set and audible. bipap plugged into red outlet. ambu bag bedside will continue to monitor. Addendum: 06/14/19 at 0002 by JONATHAN DELGADO RT Amended: Links added.
[2019-06-14 00:03] LABS: CALCIUM, SERUM 10.1 mg/dL (8.5-10.1); CARBON DIOXIDE 30 mmol/L (21-32); CHLORIDE 109 mmol/L (98-107); CREATININE 1.6 mg/dL (0.6-1.3); GLUCOSE 95 mg/dL (74-106); POTASSIUM 3.5 mmol/L (3.5-5.1); SODIUM SERUM 145 mmol/L (136-145); UREA NITROGEN, BLOOD 28 mg/dL (7-18)
[2019-06-14] MEDS ORDERED: ALBUTEROL FS 2.5 MG/3 ML VIAL.NEB ONE (00:06)
[2019-06-14] MEDS ORDERED: IPRATROPIUM NEB FS 0.5 MG/2.5 ML AMPUL.NEB ONE (00:07)
[2019-06-14 00:16] LABS: ALANINE AMINOTRANSFERASE 12 U/L (12-78); ALBUMIN 3.1 g/dL (3.4-5.0); ALKALINE PHOSPHATASE 91 U/L (46-116); ASPARTATE AMINOTRANSFERASE 17 U/L (15-37); B-TYPE NATRIURETIC PEPTIDE 6400 PG/ML (0-125); BILIRUBIN,DIRECT 0.3 mg/dL (0.0-0.2); TOTAL PROTEIN, SERUM 6.7 g/dL (6.4-8.2)
--- NOTE | 2019-06-14 00:37 | NUR ---
bp noted at 83/47. made made aware. received verbal order to given ns 500ml via iv blolus x 1. noted and carried out
[2019-06-14] MEDS ORDERED: methylPREDNISolone SOD SUCC 125 MG/2ML VIAL ONE (00:50)
[2019-06-14] MEDS ORDERED: IV NS 0.9% 500 ML BAG IV ONE (01:00)
--- NOTE | 2019-06-14 01:16 | NUR ---
abg done by rt. result relayed to md. order to downgrade to o2 via mask. pt placed on venti mask at 50% o2 = 15lpm. tolerating well. breathing is better w/ 02 sat @ 97%
--- NOTE | 2019-06-14 01:42 | NUR ---
Dr Brewer paged.
[2019-06-14 01:45] LABS: ABG BASE EXCESS -1.6 mmol/L; ABG OXYGEN SATURATION 89.6 % (92.0-98.5); ABG PCO2 33.5 mmHg (35.0-45.0); ABG PH 7.435 (7.350-7.450); ABG PO2 58.1 mmHg (75.0-100.0); AaDO2 116.4 mmHg; COHb 0.3 % (0.5-1.5); MetHb 0.4 % (0.0-1.5); SITE, ABG Right Radial; VENT MODE, BG Bipap 15/5 RR16 30%
[2019-06-14] MEDS ORDERED: FAMO40TA7 PO (03:01)
[2019-06-14] MEDS ORDERED: CALC-770 PO (03:01)
[2019-06-14] MEDS ORDERED: LEVO88TA5 PO (03:01)
[2019-06-14] MEDS ORDERED: ASPI-1152 PO (03:01)
[2019-06-14] MEDS ORDERED: PREG100C55 PO (03:01)
[2019-06-14] MEDS ORDERED: TIOT18CA3 IH (03:01)
[2019-06-14] MEDS ORDERED: Folic Acid PO (03:01)
--- NOTE | 2019-06-14 04:33 | NUR ---
Jadon marti in [facility] - 06/14/19 at 0434 by ADRIAN REPORT GIVEN TO ALICIA RANGEL FOR ANZ
--- NOTE | 2019-06-14 04:34 | NUR ---
REPORT GIVEN TO ALICIA REYNAGA FOR NAZ
--- NOTE | 2019-06-14 05:50 | NUR ---
Pt's Venti Mask downgraded to Simple mask @ 10 lpm. toleratting well. o2 sat noted in the 95s
[2019-06-14] MEDS ORDERED: ALBUTEROL SULFATE INH 18 GM HFA.AER.AD IH PRN (06:00)
[2019-06-14] MEDS ORDERED: MAGNESIUM HYDROXIDE 30 ML UDC PO PRN (06:00)
[2019-06-14] MEDS ORDERED: BISACODYL SUPP (10 MG) 10 MG/SUPP.RECT SUPP.RECT RC PRN (06:00)
[2019-06-14] MEDS ORDERED: ZOLPIDEM TARTRATE 5 MG TABLET PO PRN (06:00)
[2019-06-14] MEDS ORDERED: Z GUARD REMEDY 2 OZ OINT TP PRN (06:00)
[2019-06-14] MEDS ORDERED: NA PHOS,M-B/NA PHOS,DI-BA 1 EA ENEMA RC PRN (06:00)
[2019-06-14] MEDS ORDERED: ACETAMINOPHEN 325 MG TABLET PO PRN (06:00)
[2019-06-14] MEDS ORDERED: ONDANSETRON HCL/PF 4 MG/2 ML VIAL IVP PRN (06:00)
--- NOTE | 2019-06-14 06:20 | NUR ---
PT TRANSPORTED TO UNIT ON GURNEY WITH EMT AND 2 RN AT BEDSIDE W/ ACLS PROTOCOL. NAD NOTED DURING TRANSPORTED
[2019-06-14] MEDS ORDERED: ALBUTEROL FS 2.5 MG/0.5 ML VIAL.NEB NEB PRN (07:00)
[2019-06-14] MEDS: ALBUTEROL HALF STRENGTH 1.25 MG/3 ML VIAL.NEB NEB SCH ×5 (07:24→23:17)
[2019-06-14] MEDS: IPRATROPIUM NEB FS 0.5 MG/2.5 ML AMPUL.NEB NEB SCH ×5 (07:24→23:17)
--- NOTE | 2019-06-14 07:27 | NUR ---
0600 Received patient from ED via [facility] protocol.Patient awake alert and oriented x 2. Admitted for sob.Dx: COPD,CHF.With 10L face mask tolerating well.SPO2 98%.Respiration even and unlabored.SR per monitor.VS stable.AM care done.Turned and repositioned to comfort..Denies pain.Incontinent of urine.Kept clean and dry.Initial admission assessment done.Patient seen by with orders.Endorsed to day shift for continuity of care.
--- NOTE | 2019-06-14 07:30 | NUR ---
RN NOTES RECEIVED PATIENT, ASLEEP BUT EASILY AWAKEN BY VERBAL STIMULI. ABLE TO RESPOND APPROPRIATELY, ORIENTED X2. WITH EFFORTS ON BREATHING. ON OXYGEN SUPPORT VIA SIMPLE FACE MASK, SATING 94% AT THIS TIME. NO COMPLAINTS OF PAIN OF ANY KIND. NORMAL SINUS ON THE MONITOR WITH HR ON THE 70S. IV SITES ON R AND L AC G 20: IN PLACE AND INTACT. BOTH SALINE LOCKED. PATIENT ENCOURAGE TO CALL FOR HELP/ASSISTANCE, TO VERBALIZE FEELINGS AND CONCERNS. SAFETY MEASURES OBSERVED AND MAINTAINED. BED IN LOW AND LOCKED POSITIONED. CALL LIGHT PLACED WITHIN REACH. WILL CONTINUE TO MONITOR PATIENT CLOSELY
[2019-06-14] MEDS ORDERED: ENOXAPARIN SODIUM 60 MG/0.6 ML DISP.SYRIN SQ SCH (09:00)
[2019-06-14] MEDS ORDERED: Medication Not On Formulary EA (Ceftriaxone Na/Dextrose,Iso (Ceftriaxone 1 Gm Piggyback) IV SCH (09:00)
[2019-06-14] MEDS ORDERED: TIOTROPIUM BROMIDE 6 CAP/BOX CAP.W.DEV IH SCH (09:00)
[2019-06-14] MEDS ORDERED: IV NS 0.9% 500 ML IV ONE (10:00)
--- NOTE | 2019-06-14 10:00 | NUR ---
RN NOTES OBTAINED PERMISSION TO PUT BOUDREAUX CATHETER BUT PATIENT REFUSED TWICE. RISK AND BENEFITS DISCUSSED. STILL REFUSED
[2019-06-14] MEDS: CEFTRIAXONE 1 G in IV D5W 50 ML IV SCH (10:03)
[2019-06-14] MEDS: MULTIVIT W/MINERALS 1 TAB TABLET PO SCH (10:04)
[2019-06-14] MEDS: ASPIRIN EC 81 MG TABLET.DR PO SCH (10:04)
[2019-06-14] MEDS: FOLIC ACID 1 MG TABLET PO SCH (10:04)
[2019-06-14] MEDS: LEVOTHYROXINE SODIUM 88 MCG TABLET PO SCH (10:04)
[2019-06-14] MEDS: PREGABALIN 100 MG CAPSULE PO SCH ×2 (10:05→17:44)
[2019-06-14] MEDS: methylPREDNISolone SOD SUCC 125 MG/2ML VIAL IV SCH ×3 (10:05→17:44)
[2019-06-14] MEDS: ASCORBIC ACID 500 MG TABLET PO SCH (10:05)
[2019-06-14] MEDS: FLUTICASONE PROPIONATE 16 GM BOTTLE NS SCH ×2 (10:36→18:02)
[2019-06-14] MEDS: PROSOURCE / PROSTAT (PYXIS) 30 ML UDC PO SCH (10:37)
[2019-06-14] MEDS: ENOXAPARIN SODIUM 100 MG/ML DISP.SYRIN SQ SCH (10:38)
[2019-06-14 12:44] LABS: ABG BASE EXCESS -4.4 mmol/L; ABG OXYGEN SATURATION 91.6 % (92.0-98.5); ABG PCO2 34.4 mmHg (35.0-45.0); ABG PH 7.381 (7.350-7.450); ABG PO2 66.3 mmHg (75.0-100.0); AaDO2 179.3 mmHg; COHb 0.6 % (0.5-1.5); MetHb 0.3 % (0.0-1.5); O2Hb 90.8 % (94.0-97.0); SITE, ABG Right Radial; VENT MODE, BG NASAL CANNULA
--- NOTE | 2019-06-14 19:30 | NUR ---
RN NOTES ENDORSED FOR CONTINUITY OF CARE. NOT ON ANY FORM OF DISTRESS. SATING WELL WITH OXYGEN AT 3LPM VIA NASAL CANNULA. SAFETY MEASURES IN PLACE. CALL LIGHT WITHIN REACH
--- NOTE | 2019-06-14 20:00 | NUR ---
SECURITIES TRADER - NOTES - RECEIVED PATIENT, AWAKE, ALERT, ORIENTED X3. ON OXYGEN SUPPORT VIA NASAL CANNULA 5LPM, SATING >90% AT THIS TIME. NO COMPLAINTS OF PAIN OF ANY KIND. NORMAL SINUS ON THE MONITOR WITH HR ON THE 80S. IV SITES ON R AND L AC G 20: IN PLACE AND INTACT. BOTH SALINE LOCKED. PATIENT ENCOURAGE TO CALL FOR HELP/ASSISTANCE, TO VERBALIZE FEELINGS AND CONCERNS. SAFETY MEASURES OBSERVED AND MAINTAINED. BED IN LOW AND LOCKED POSITIONED. CALL LIGHT PLACED WITHIN REACH. WILL CONTINUE TO MONITOR PATIENT CLOSELY
[2019-06-14] MEDS: ATORVASTATIN 40 MG TABLET PO SCH (21:07)
[2019-06-14] MEDS: FAMOTIDINE (20 MG) 20 MG TABLET PO SCH (21:07)
[2019-06-15] VITALS (21 sets, daily range): BP systolic 78–125; BP diastolic 36–67
[2019-06-15] MEDS: ALBUTEROL HALF STRENGTH 1.25 MG/3 ML VIAL.NEB NEB SCH ×5 (03:52→23:37)
[2019-06-15] MEDS: IPRATROPIUM NEB FS 0.5 MG/2.5 ML AMPUL.NEB NEB SCH ×5 (03:52→23:37)
[2019-06-15 04:14] LABS: BASOPHILS % (AUTO) 0.2 % (0.0-2.0); HEMATOCRIT 35 % (33-45); LYMPHOCYTES # (AUTO) 0.4 /CMM (0.8-4.8); LYMPHOCYTES % (AUTO) 8.9 % (20.0-44.0); MEAN CORPUSCULAR HGB CONC 32 g/dl (31.0-36.0); MEAN CORPUSCULAR VOLUME 83 fL (82-100); MONOCYTES # (AUTO) 0.3 /CMM (0.1-1.30); MONOCYTES % (AUTO) 5.6 % (2.0-12.0); NEUTROPHILS # (AUTO) 4.2 /CMM (1.8-8.9); NEUTROPHILS % (AUTO) 85.3 % (43.0-81.0); PLATELET COUNT (AUTO) 170 /CMM (150-450); RED BLOOD CELL COUNT(AUTO) 4.13 MIL/uL (4.0-5.2); WHITE BLOOD COUNT (AUTO) 4.9 K/uL (4.3-11.0)
[2019-06-15 04:25] LABS: CALCIUM, SERUM 9.1 mg/dL (8.5-10.1); CARBON DIOXIDE 25 mmol/L (21-32); CHLORIDE 109 mmol/L (98-107); CREATININE 1.5 mg/dL (0.6-1.3); GLUCOSE 148 mg/dL (74-106); PHOSPHORUS 2.7 mg/dL (2.5-4.9); POTASSIUM 3.6 mmol/L (3.5-5.1); SODIUM SERUM 143 mmol/L (136-145); UREA NITROGEN, BLOOD 33 mg/dL (7-18)
[2019-06-15 04:46] LABS: CHOLESTEROL 92 mg/dL (<200); HDL CHOLESTEROL 46 mg/dL (40-60); LDL 40 mg/dL (0-99); TRIGLYCERIDES 64 mg/dL (30-150)
[2019-06-15] MEDS: MULTIVIT W/MINERALS 1 TAB TABLET PO SCH (08:34)
[2019-06-15] MEDS: methylPREDNISolone SOD SUCC 125 MG/2ML VIAL IV SCH ×3 (08:34→17:54)
[2019-06-15] MEDS: ASPIRIN EC 81 MG TABLET.DR PO SCH (08:34)
[2019-06-15] MEDS: PREGABALIN 100 MG CAPSULE PO SCH ×2 (08:34→17:54)
[2019-06-15] MEDS: ASCORBIC ACID 500 MG TABLET PO SCH (08:34)
[2019-06-15] MEDS: FOLIC ACID 1 MG TABLET PO SCH (08:34)
[2019-06-15] MEDS: LEVOTHYROXINE SODIUM 88 MCG TABLET PO SCH (08:35)
[2019-06-15] MEDS: CEFTRIAXONE 1 G in IV D5W 50 ML IV SCH (08:35)
[2019-06-15] MEDS: PROSOURCE / PROSTAT (PYXIS) 30 ML UDC PO SCH (08:38)
[2019-06-15] MEDS: ENOXAPARIN SODIUM 100 MG/ML DISP.SYRIN SQ SCH (08:38)
[2019-06-15] MEDS: FLUTICASONE PROPIONATE 16 GM BOTTLE NS SCH ×2 (08:51→17:00)
--- NOTE | 2019-06-15 11:46 | NUR ---
pt transferred to [facility], ACLS followed, alert, v/s stable no pain.
--- NOTE | 2019-06-15 19:10 | NUR ---
ROAD ROLLER ENGINEER OPENING NOTES RECEIVED PATIENT SLEEPING IN BED, BUT EASY TO AROUSE. PT A/OX3. ON OXYGEN 4L VIA NASAL CANNULA 97% AT THE MOMENT. DENIES ANY PAIN. ON TELE MONITOR NORMAL SINUS WITH HR 80'S. IV SITES RIGHT AC 20G FLUSHING AND PATENT, LEFT AC 20G LEAKING, WILL REMOVE IV. BOTH SALINE LOCKED. PATIENT ENCOURAGE TO CALL FOR HELP/ASSISTANCE. SAFETY MEASURES IN PLACE; BED IN LOW AND LOCKED POSITIONED, CALL LIGHT PLACED WITHIN REACH, SIDE RAILS UP X2, HOB ELEVATED. WILL CONTINUE TO MONITOR PATIENT CLOSELY.
--- NOTE | 2019-06-15 19:23 | NUR ---
winder operator Closing Patient remains A/Ox3-4. On 4L O2 via NC, 92-94%. Attached to tele, SR 80-90s. IV site x2. No SOB noted. Patient oriented to room and verbalized understanding of call light. Educated on emergency symptoms.
[2019-06-15] MEDS: FAMOTIDINE (20 MG) 20 MG TABLET PO SCH (22:39)
[2019-06-15] MEDS: ATORVASTATIN 40 MG TABLET PO SCH (22:39)
[2019-06-16] VITALS: BP 98/65
[2019-06-16] MEDS: ALBUTEROL HALF STRENGTH 1.25 MG/3 ML VIAL.NEB NEB SCH ×6 (03:12→23:30)
[2019-06-16] MEDS: IPRATROPIUM NEB FS 0.5 MG/2.5 ML AMPUL.NEB NEB SCH ×6 (03:12→23:30)
[2019-06-16 04:00] VITALS: BP 99/60
[2019-06-16 06:58] LABS: BASOPHILS % (AUTO) 0.2 % (0.0-2.0); HEMATOCRIT 36 % (33-45); HEMOGLOBIN 11.3 g/dL (11.5-14.8); LYMPHOCYTES # (AUTO) 0.6 /CMM (0.8-4.8); LYMPHOCYTES % (AUTO) 7.2 % (20.0-44.0); MEAN CORPUSCULAR HGB CONC 32 g/dl (31.0-36.0); MEAN CORPUSCULAR VOLUME 83 fL (82-100); MONOCYTES # (AUTO) 0.3 /CMM (0.1-1.30); MONOCYTES % (AUTO) 3.5 % (2.0-12.0); NEUTROPHILS # (AUTO) 7.4 /CMM (1.8-8.9); NEUTROPHILS % (AUTO) 89.1 % (43.0-81.0); PLATELET COUNT (AUTO) 182 /CMM (150-450); RED BLOOD CELL COUNT(AUTO) 4.29 MIL/uL (4.0-5.2); WHITE BLOOD COUNT (AUTO) 8.3 K/uL (4.3-11.0)
--- NOTE | 2019-06-16 07:05 | NUR ---
CO FOUNDER AND CHAIRMAN CLOSING NOTES PATIENT SLEEPING IN BED, BUT EASY TO AROUSE. PT A/OX3. NO ACUTE CHANGES THROUGHOUT SHIFT. ON OXYGEN 3L VIA NASAL CANNULA 97% AT THE MOMENT. DENIES ANY PAIN. ON TELE MONITOR NORMAL SINUS WITH HR 70'S. IV SITES RIGHT AC 20G, FLUSHING AND PATENT, SALINE LOCKED. PATIENT ENCOURAGE TO CALL FOR HELP/ASSISTANCE. REPOSITIONED Q2H. SAFETY MEASURES IN PLACE; BED IN LOW AND LOCKED POSITIONED, CALL LIGHT PLACED WITHIN REACH, SIDE RAILS UP X2, HOB ELEVATED. ENDORSED TO AM RN FOR NAZ.
[2019-06-16 07:11] LABS: ALANINE AMINOTRANSFERASE 10 U/L (12-78); ALBUMIN 2.8 g/dL (3.4-5.0); ALKALINE PHOSPHATASE 75 U/L (46-116); ASPARTATE AMINOTRANSFERASE 11 U/L (15-37); BILIRUBIN,TOTAL 0.5 mg/dL (0.2-1.0); CALCIUM, SERUM 9.1 mg/dL (8.5-10.1); CARBON DIOXIDE 22 mmol/L (21-32); CHLORIDE 110 mmol/L (98-107); CREATININE 1.4 mg/dL (0.6-1.3); GLUCOSE 131 mg/dL (74-106); MAGNESIUM 2.3 mg/dL (1.8-2.4); PHOSPHORUS 2.7 mg/dL (2.5-4.9); POTASSIUM 3.9 mmol/L (3.5-5.1); SODIUM SERUM 146 mmol/L (136-145); TOTAL PROTEIN, SERUM 6.1 g/dL (6.4-8.2); UREA NITROGEN, BLOOD 38 mg/dL (7-18)
[2019-06-16 08:00] VITALS: BP 93/63
[2019-06-16] MEDS: PREGABALIN 100 MG CAPSULE PO SCH ×2 (08:52→16:47)
[2019-06-16] MEDS: LEVOTHYROXINE SODIUM 88 MCG TABLET PO SCH (08:52)
[2019-06-16] MEDS: ASPIRIN EC 81 MG TABLET.DR PO SCH (08:52)
[2019-06-16] MEDS: FOLIC ACID 1 MG TABLET PO SCH (08:52)
[2019-06-16] MEDS: MULTIVIT W/MINERALS 1 TAB TABLET PO SCH (08:52)
[2019-06-16] MEDS: methylPREDNISolone SOD SUCC 125 MG/2ML VIAL IV SCH ×4 (08:52→16:47)
[2019-06-16] MEDS: ASCORBIC ACID 500 MG TABLET PO SCH (08:53)
[2019-06-16] MEDS: CHLORHEXIDINE GLUCONATE 15 ML UDC MM SCH ×2 (08:53→16:47)
[2019-06-16] MEDS: CEFTRIAXONE 1 G in IV D5W 50 ML IV SCH (08:54)
[2019-06-16] MEDS: PROSOURCE / PROSTAT (PYXIS) 30 ML UDC PO SCH (08:55)
[2019-06-16] MEDS: ENOXAPARIN SODIUM 100 MG/ML DISP.SYRIN SQ SCH (08:55)
[2019-06-16] MEDS: FLUTICASONE PROPIONATE 16 GM BOTTLE NS SCH ×2 (10:00→17:57)
--- NOTE | 2019-06-16 11:24 | NUR ---
RN NOTE 0715: Received patient awake, A/Ox4. On 3LPM of O2 via NC, tolerated. No respiratory distress noted. Patient verbalized she is feeling better on her breathing. Kept HOB elevated. With RAC PIV intact. 0830: AM meds given. 1000: Followed up with pharmacy re: the Flonase. No ASE from Rocephin. Continue Steroids and bronchodilators. 1110: Endorsed to Sheila RN for NAZ. Still awaiting Flonase.
--- NOTE | 2019-06-16 11:45 | NUR ---
RECEIVED REPORT FROM MELODY VARGAS FOR NAZ
[2019-06-16 16:00] VITALS: BP 99/64
--- NOTE | 2019-06-16 18:25 | NUR ---
MS RN CLOSING NOTE PT AWAKE IN BED, ALERT AND ORIENTED X 4, ON 02 VIA NC 3L/MIN, SATURATING WELL, RESPIRATIONS EVEN AND UNLABORED, NO SIGNS OF RESPIRATORY DISTRESS NOTED. HOB ELEVATED. IV SITE ON RIGHT AC G20 INTACT, PATENT, WITH HEP LOCK IN PLACE. BED IN LOW POSITION, LOCKED, CALL LIGHT WITHIN REACH. PROVIDED SAFETY AND COMFORT TO PT THROUGHOUT SHIFT. WILL ENDORSE TO NOC SHIFT NURSE.
[2019-06-16 20:00] VITALS: BP 110/68
--- NOTE | 2019-06-16 20:20 | NUR ---
RN OPENING NOTES RECEIVED PATIENT RESTING IN BED, AWAKE, A/OX3. ON OXYGEN 3L VIA NASAL CANNULA 94% AT THE MOMENT. NO SOB OR RESPIRATORY DISTRESS NOTED, DENIES ANY PAIN. IV SITE RIGHT AC 20G FLUSHING AND PATENT, SALINE LOCKED. PATIENT ENCOURAGE TO CALL FOR HELP/ASSISTANCE. SAFETY MEASURES IN PLACE; BED IN LOW AND LOCKED POSITIONED, CALL LIGHT PLACED WITHIN REACH, SIDE RAILS UP X2, HOB ELEVATED. WILL CONTINUE TO MONITOR PATIENT CLOSELY.
[2019-06-16] MEDS: ATORVASTATIN 40 MG TABLET PO SCH (21:44)
[2019-06-16] MEDS: FAMOTIDINE (20 MG) 20 MG TABLET PO SCH (21:44)
[2019-06-17] MEDS: IPRATROPIUM NEB FS 0.5 MG/2.5 ML AMPUL.NEB NEB SCH ×6 (03:30→23:30)
[2019-06-17] MEDS: ALBUTEROL HALF STRENGTH 1.25 MG/3 ML VIAL.NEB NEB SCH ×6 (03:30→23:30)
[2019-06-17 04:00] VITALS: BP 102/67
--- NOTE | 2019-06-17 07:10 | NUR ---
RN CLOSING NOTES PATIENT SLEEPING IN BED, BUT EASY TO AROUSE. PT A/OX3. NO ACUTE CHANGES THROUGHOUT SHIFT. ON OXYGEN 3L VIA NASAL CANNULA 95% AT THE MOMENT. DENIES ANY PAIN. IV SITES RIGHT AC 20G, FLUSHING AND PATENT, SALINE LOCKED. PATIENT ENCOURAGE TO CALL FOR HELP/ASSISTANCE. REPOSITIONED Q2H. KEPT PT CLEAN, DRY AND COMFORTABLE. SAFETY MEASURES IN PLACE; BED IN LOW AND LOCKED POSITIONED, CALL LIGHT PLACED WITHIN REACH, SIDE RAILS UP X2, HOB ELEVATED. ENDORSED TO AM RN FOR NAZ.
--- NOTE | 2019-06-17 07:35 | NUR ---
MS RN OPENING NOTE PT ASLEEP IN BED, ON 02 VIA NC 3L/MIN, SATURATING WELL, RESPIRATIONS EVEN AND UNLABORED, NO SIGNS OF RESPIRATORY DISTRESS NOTED. HOB ELEVATED. IV SITE ON RIGHT AC G20 INTACT, PATENT, WITH HEP LOCK IN PLACE. BED IN LOW POSITION, LOCKED, CALL LIGHT WITHIN REACH.
[2019-06-17 07:55] LABS: BASOPHILS % (AUTO) 0.2 % (0.0-2.0); HEMATOCRIT 35 % (33-45); HEMOGLOBIN 11.4 g/dL (11.5-14.8); LYMPHOCYTES # (AUTO) 0.5 /CMM (0.8-4.8); LYMPHOCYTES % (AUTO) 7.5 % (20.0-44.0); MEAN CORPUSCULAR HGB CONC 32 g/dl (31.0-36.0); MEAN CORPUSCULAR VOLUME 83 fL (82-100); MONOCYTES # (AUTO) 0.3 /CMM (0.1-1.30); MONOCYTES % (AUTO) 4.6 % (2.0-12.0); NEUTROPHILS % (AUTO) 87.7 % (43.0-81.0); PLATELET COUNT (AUTO) 177 /CMM (150-450); RED BLOOD CELL COUNT(AUTO) 4.25 MIL/uL (4.0-5.2); WHITE BLOOD COUNT (AUTO) 6.8 K/uL (4.3-11.0)
[2019-06-17 08:00] VITALS: BP 98/59
[2019-06-17 08:17] LABS: ALBUMIN 2.7 g/dL (3.4-5.0); BILIRUBIN,TOTAL 0.4 mg/dL (0.2-1.0); CALCIUM, SERUM 8.8 mg/dL (8.5-10.1); CREATININE 1.2 mg/dL (0.6-1.3); MAGNESIUM 2.4 mg/dL (1.8-2.4); PHOSPHORUS 2.5 mg/dL (2.5-4.9); POTASSIUM 4.3 mmol/L (3.5-5.1)
[2019-06-17] MEDS: CEFTRIAXONE 1 G in IV D5W 50 ML IV SCH (08:18)
[2019-06-17] MEDS: MULTIVIT W/MINERALS 1 TAB TABLET PO SCH (08:18)
[2019-06-17] MEDS: FOLIC ACID 1 MG TABLET PO SCH (08:18)
[2019-06-17] MEDS: CHLORHEXIDINE GLUCONATE 15 ML UDC MM SCH ×2 (08:18→16:18)
[2019-06-17] MEDS: ASCORBIC ACID 500 MG TABLET PO SCH (08:18)
[2019-06-17] MEDS: LEVOTHYROXINE SODIUM 88 MCG TABLET PO SCH (08:18)
[2019-06-17] MEDS: methylPREDNISolone SOD SUCC 125 MG/2ML VIAL IV SCH ×2 (08:19→16:18)
[2019-06-17] MEDS: PREGABALIN 100 MG CAPSULE PO SCH ×2 (08:19→16:19)
[2019-06-17] MEDS: ENOXAPARIN SODIUM 100 MG/ML DISP.SYRIN SQ SCH (08:21)
[2019-06-17] MEDS: ASPIRIN EC 81 MG TABLET.DR PO SCH (08:25)
[2019-06-17] MEDS: PROSOURCE / PROSTAT (PYXIS) 30 ML UDC PO SCH (08:26)
[2019-06-17] MEDS: FLUTICASONE PROPIONATE 16 GM BOTTLE NS SCH ×2 (08:26→16:18)
[2019-06-17 16:00] VITALS: BP 123/63
[2019-06-17] MEDS: FAMOTIDINE (20 MG) 20 MG TABLET PO SCH (21:13)
[2019-06-17] MEDS: ATORVASTATIN 40 MG TABLET PO SCH (21:13)
--- NOTE | 2019-06-17 23:04 | NUR ---
MS RN CLOSING NOTE PT ASLEEP IN BED, ON 02 VIA NC 3L/MIN, SATURATING WELL, RESPIRATIONS EVEN AND UNLABORED, NO SIGNS OF RESPIRATORY DISTRESS NOTED. HOB ELEVATED. IV SITE ON RIGHT AC G20 INTACT, PATENT, WITH HEP LOCK IN PLACE. PROVIDED SAFETY AND COMFORT TO PT THROUGHOUT SHIFT, ALL DUE MEDS GIVEN. TURNED AND REPOSITIONED PT EVERY 2 HOURS THROUGHOUT SHIFT, OFFLOADED EXTREMITIES, BED IN LOW POSITION, LOCKED, CALL LIGHT WITHIN REACH. ENDORSED TO ANH VARGAS FOR NAZ.
[2019-06-18] MEDS: ALBUTEROL HALF STRENGTH 1.25 MG/3 ML VIAL.NEB NEB SCH ×6 (03:30→23:30)
[2019-06-18] MEDS: IPRATROPIUM NEB FS 0.5 MG/2.5 ML AMPUL.NEB NEB SCH ×6 (03:30→23:30)
[2019-06-18 04:00] VITALS: BP 105/66
--- NOTE | 2019-06-18 07:00 | NUR ---
RN MS 1 OPENING PATIENT IS AWAKE A/O X4 PATIENT IS ON NC WITH [address] ORDERS . PATIENT HAS BLE +2. PATIENT IS CURRENTLY ON BEDREST. PATIENT HAS SACRAL REDNESS COVERED WITH MEXPILEX AND KEPT DRY. PATIENT HAS A RAC 20 G PATENT AND INTACT. NO SIGNS OF INFILTRATION OR S/S OF INFECTION . PATIENT SHOWS NO SOB, NO ACUTE RESPIRATORY DISTRESS, NO PAIN. BED LOCKED AND LOWEST POSITION CALL LIGHT WITH IN REACH. ALL SAFETY PRECAUTIONS IMPLEMENTED PER HOSPITAL POLICY
[2019-06-18 08:00] VITALS: BP 109/70
[2019-06-18] MEDS: PROSOURCE / PROSTAT (PYXIS) 30 ML UDC PO SCH (09:00)
[2019-06-18] MEDS: PREGABALIN 100 MG CAPSULE PO SCH ×2 (09:50→18:28)
[2019-06-18] MEDS: FLUTICASONE PROPIONATE 16 GM BOTTLE NS SCH ×2 (09:50→18:28)
[2019-06-18] MEDS: CHLORHEXIDINE GLUCONATE 15 ML UDC MM SCH ×2 (09:50→18:28)
[2019-06-18] MEDS: ASCORBIC ACID 500 MG TABLET PO SCH (09:50)
[2019-06-18] MEDS: LEVOTHYROXINE SODIUM 88 MCG TABLET PO SCH (09:50)
[2019-06-18] MEDS: ASPIRIN EC 81 MG TABLET.DR PO SCH (09:50)
[2019-06-18] MEDS: FOLIC ACID 1 MG TABLET PO SCH (09:51)
[2019-06-18] MEDS: MULTIVIT W/MINERALS 1 TAB TABLET PO SCH (09:51)
[2019-06-18] MEDS: methylPREDNISolone SOD SUCC 125 MG/2ML VIAL IV SCH ×2 (09:51→18:28)
[2019-06-18] MEDS: CEFTRIAXONE 1 G in IV D5W 50 ML IV SCH (09:52)
[2019-06-18] MEDS: ENOXAPARIN SODIUM 100 MG/ML DISP.SYRIN SQ SCH (09:53)
[2019-06-18] MEDS: FUROSEMIDE 40 MG/4 ML VIAL IV SCH (10:24)
[2019-06-18 12:13] LABS: THYROID STIMULATING HORMONE 2.086 uIU/mL (0.358-3.74)
[2019-06-18 16:00] VITALS: BP_SYST 104; BP_SYST 109; BP_DIAS 69; BP_DIAS 70
[2019-06-18 18:00] VITALS: BP 92/40
--- NOTE | 2019-06-18 19:30 | NUR ---
RN MS 1 CLOSING . PATIENT IS AWAKE A/O X4 . PATIENT IS ON NC WITH 3LMP . PATIENT SHOWS NO SIGNS OF SOB. NO ACUTE RESPIRATORY DISTRESS . NO PAIN . PATIENT TURN Q2H . ALL NEEDS MET. BED LOCKED AND LOWEST POSITION CALL LIGHT WITH IN REACH. ALL SAFETY PRECAUTIONS IMPLEMENTED PREHOSPITAL POLICY.PATIENT TURN Q2H .
[2019-06-18 20:00] VITALS: BP 104/66
[2019-06-18] MEDS: FAMOTIDINE (20 MG) 20 MG TABLET PO SCH (22:33)
[2019-06-18] MEDS: ATORVASTATIN 40 MG TABLET PO SCH (22:33)
[2019-06-19] MEDS: IPRATROPIUM NEB FS 0.5 MG/2.5 ML AMPUL.NEB NEB SCH ×7 (03:30→23:30)
[2019-06-19] MEDS: ALBUTEROL HALF STRENGTH 1.25 MG/3 ML VIAL.NEB NEB SCH ×7 (03:30→23:30)
[2019-06-19 04:00] VITALS: BP 108/73
--- NOTE | 2019-06-19 07:00 | NUR ---
MS RN NOTES PATIENT IS AWAKE A/O X4 PATIENT IS ON NC WITH [address] ORDERS . WHILE TALKING TO THE PATIENT SHE LOOKS LIKE SHES TRYING TO CATCH HER BREATH WHILE SHES TALKING . SHE PATIENT HAS BLE EDEMA . PATIENT IS CURRENTLY ON BEDREST. PATIENT HAS SACRAL REDNESS COVERED WITH MEXPILEX AND KEPT DRY. PATIENT HAS A RAC 20 G PATENT AND INTACT. NO SIGNS OF INFILTRATION OR S/S OF INFECTION . PATIENT SHOWS NO SOB, NO ACUTE RESPIRATORY DISTRESS, NO PAIN. BED LOCKED AND LOWEST POSITION CALL LIGHT WITH IN REACH. ALL SAFETY PRECAUTIONS IMPLEMENTED PER HOSPITAL POLICY.
[2019-06-19 07:17] LABS: BASOPHILS % (AUTO) 0.4 % (0.0-2.0); HEMATOCRIT 37 % (33-45); HEMOGLOBIN 11.8 g/dL (11.5-14.8); LYMPHOCYTES % (AUTO) 12.7 % (20.0-44.0); MEAN CORPUSCULAR HGB CONC 32 g/dl (31.0-36.0); MEAN CORPUSCULAR VOLUME 82 fL (82-100); MONOCYTES # (AUTO) 0.8 /CMM (0.1-1.30); MONOCYTES % (AUTO) 10.3 % (2.0-12.0); NEUTROPHILS # (AUTO) 5.9 /CMM (1.8-8.9); NEUTROPHILS % (AUTO) 76.6 % (43.0-81.0); PLATELET COUNT (AUTO) 186 /CMM (150-450); RED BLOOD CELL COUNT(AUTO) 4.51 MIL/uL (4.0-5.2); WHITE BLOOD COUNT (AUTO) 7.6 K/uL (4.3-11.0)
[2019-06-19 07:27] LABS: ALANINE AMINOTRANSFERASE 17 U/L (12-78); ALBUMIN 2.9 g/dL (3.4-5.0); ALKALINE PHOSPHATASE 68 U/L (46-116); ASPARTATE AMINOTRANSFERASE 16 U/L (15-37); BILIRUBIN,TOTAL 0.5 mg/dL (0.2-1.0); CALCIUM, SERUM 9.1 mg/dL (8.5-10.1); CARBON DIOXIDE 29 mmol/L (21-32); CHLORIDE 111 mmol/L (98-107); CREATININE 1.3 mg/dL (0.6-1.3); GLUCOSE 95 mg/dL (74-106); MAGNESIUM 2.5 mg/dL (1.8-2.4); PHOSPHORUS 2.7 mg/dL (2.5-4.9); POTASSIUM 4.6 mmol/L (3.5-5.1); SODIUM SERUM 146 mmol/L (136-145); TOTAL PROTEIN, SERUM 6.1 g/dL (6.4-8.2); UREA NITROGEN, BLOOD 41 mg/dL (7-18)
[2019-06-19 08:00] VITALS: BP 109/68
[2019-06-19] MEDS: FUROSEMIDE 40 MG/4 ML VIAL IV SCH (08:50)
[2019-06-19] MEDS: CHLORHEXIDINE GLUCONATE 15 ML UDC MM SCH ×2 (08:50→16:10)
[2019-06-19] MEDS: methylPREDNISolone SOD SUCC 125 MG/2ML VIAL IV SCH ×2 (08:50→16:10)
[2019-06-19] MEDS: ASCORBIC ACID 500 MG TABLET PO SCH (08:51)
[2019-06-19] MEDS: ASPIRIN EC 81 MG TABLET.DR PO SCH (08:51)
[2019-06-19] MEDS: LEVOTHYROXINE SODIUM 88 MCG TABLET PO SCH (08:51)
[2019-06-19] MEDS: PREGABALIN 100 MG CAPSULE PO SCH ×2 (08:51→16:10)
[2019-06-19] MEDS: FLUTICASONE PROPIONATE 16 GM BOTTLE NS SCH ×2 (08:51→16:10)
[2019-06-19] MEDS: FOLIC ACID 1 MG TABLET PO SCH (08:51)
[2019-06-19] MEDS: CEFTRIAXONE 1 G in IV D5W 50 ML IV SCH (08:51)
[2019-06-19] MEDS: MULTIVIT W/MINERALS 1 TAB TABLET PO SCH (08:51)
[2019-06-19] MEDS: ENOXAPARIN SODIUM 100 MG/ML DISP.SYRIN SQ SCH (08:52)
[2019-06-19] MEDS: PROSOURCE / PROSTAT (PYXIS) 30 ML UDC PO SCH (09:00)
[2019-06-19 12:00] VITALS: BP_SYST 100; BP_SYST 103; BP_DIAS 57; BP_DIAS 64
[2019-06-19 16:00] VITALS: BP 100/64
--- NOTE | 2019-06-19 19:20 | NUR ---
RN MS 1 CLOSING PATIENT IS AWAKE A/O X4 PATIENT IS ON 3LMP PER DR ORDERS AND SATURATING WELL. PATIENT NO ACUTE RESPIRATORY DISTRESS. NO SOB. EVEN AND UNLABORED BREATHING. BED LOCKED AND LOWEST POSITION CALL LIGHT WITH IN REACH. ALL SAFETY MEASURE IMPLEMENTED PER HOSPITAL POLICY
--- NOTE | 2019-06-19 19:22 | NUR ---
RN NOTE RECEIVED PT AWAKE A/O X4. PATIENT IN SEMI NARAYANAN'S POSITION. PATIENT IS ON 3L OF O2 VIA NC PER DR ORDERS AND WITHOUT RESPIRATORY DISTRESS. NO SOB. EVEN AND UNLABORED BREATHING. DENIES PAIN OR DISCOMFORT. BED LOCKED AND LOWEST POSITION. CALL LIGHT WITH IN REACH. WILL MONITOR.
[2019-06-19 20:00] VITALS: BP 106/64
[2019-06-19] MEDS: ATORVASTATIN 40 MG TABLET PO SCH (21:48)
[2019-06-19] MEDS: FAMOTIDINE (20 MG) 20 MG TABLET PO SCH (21:48)
[2019-06-20] MEDS: ALBUTEROL HALF STRENGTH 1.25 MG/3 ML VIAL.NEB NEB SCH ×6 (03:30→23:20)
[2019-06-20] MEDS: IPRATROPIUM NEB FS 0.5 MG/2.5 ML AMPUL.NEB NEB SCH ×6 (03:30→23:19)
[2019-06-20 04:00] VITALS: BP 109/60
[2019-06-20 06:44] LABS: BASOPHILS % (AUTO) 0.1 % (0.0-2.0); EOSINOPHILS % (AUTO) 0.9 % (0.0-6.0); HEMATOCRIT 37 % (33-45); HEMOGLOBIN 11.7 g/dL (11.5-14.8); LYMPHOCYTES # (AUTO) 0.8 /CMM (0.8-4.8); LYMPHOCYTES % (AUTO) 9.2 % (20.0-44.0); MEAN CORPUSCULAR HGB CONC 32 g/dl (31.0-36.0); MEAN CORPUSCULAR VOLUME 83 fL (82-100); MONOCYTES # (AUTO) 0.8 /CMM (0.1-1.30); MONOCYTES % (AUTO) 8.9 % (2.0-12.0); NEUTROPHILS # (AUTO) 7.3 /CMM (1.8-8.9); NEUTROPHILS % (AUTO) 80.9 % (43.0-81.0); PLATELET COUNT (AUTO) 209 /CMM (150-450); RED BLOOD CELL COUNT(AUTO) 4.47 MIL/uL (4.0-5.2)
[2019-06-20 06:50] VITALS: BP 106/64
[2019-06-20 06:51] VITALS: BP 103/67
[2019-06-20 07:00] LABS: ALBUMIN 2.7 g/dL (3.4-5.0); BILIRUBIN,TOTAL 0.6 mg/dL (0.2-1.0); CALCIUM, SERUM 9.2 mg/dL (8.5-10.1); CREATININE 1.1 mg/dL (0.6-1.3); MAGNESIUM 2.5 mg/dL (1.8-2.4); PHOSPHORUS 3.3 mg/dL (2.5-4.9); POTASSIUM 5.1 mmol/L (3.5-5.1); TOTAL PROTEIN, SERUM 5.9 g/dL (6.4-8.2)
[2019-06-20 07:30] VITALS: BP 114/74
--- NOTE | 2019-06-20 07:50 | NUR ---
RN NOTE PT IN BED AWAKE AND ALERT X 4 IN STABLE CONDITION. NO INDICATIONS OF PAIN, DISCOMFORT OR RESPIRATORY DISTRESS. ALL NEEDS MET AND ATTENDED TO. ENDORSED TO MORNING SHIFT.
--- NOTE | 2019-06-20 08:00 | NUR ---
ms rn received on bed, awake,alert,oriented x3,not in any form of distress, respirations even and unlabored,no sob noted, lungs are diminished,abdomen soft, positive bowel sounds,denies pain at this time,all needs attended.
[2019-06-20] MEDS: ASPIRIN EC 81 MG TABLET.DR PO SCH (08:57)
[2019-06-20] MEDS: FOLIC ACID 1 MG TABLET PO SCH (08:57)
[2019-06-20] MEDS: predniSONE 20 MG TABLET PO SCH (08:58)
[2019-06-20] MEDS: PREGABALIN 100 MG CAPSULE PO SCH ×2 (08:58→16:33)
[2019-06-20] MEDS: ASCORBIC ACID 500 MG TABLET PO SCH (08:58)
[2019-06-20] MEDS: FUROSEMIDE 40 MG TABLET PO SCH (08:58)
[2019-06-20] MEDS: LEVOTHYROXINE SODIUM 88 MCG TABLET PO SCH (08:58)
[2019-06-20] MEDS: MULTIVIT W/MINERALS 1 TAB TABLET PO SCH (08:58)
--- NOTE | 2019-06-20 09:00 | NUR ---
ms [place] breakfast served,due meds given,tolerated well.
[2019-06-20] MEDS: CHLORHEXIDINE GLUCONATE 15 ML UDC MM SCH ×2 (09:02→16:33)
[2019-06-20] MEDS: PROSOURCE / PROSTAT (PYXIS) 30 ML UDC PO SCH (09:02)
[2019-06-20] MEDS: FLUTICASONE PROPIONATE 16 GM BOTTLE NS SCH ×2 (09:02→16:34)
[2019-06-20] MEDS: ENOXAPARIN SODIUM 100 MG/ML DISP.SYRIN SQ SCH (09:08)
--- NOTE | 2019-06-20 14:00 | NUR ---
ms rn was seen by dr. baig w/ orders made and carried out.
--- NOTE | 2019-06-20 15:54 | NUR ---
ms rn on bed,no distress noted.
--- NOTE | 2019-06-20 19:25 | NUR ---
RN NOTE PT ALERT AND ORIENTED X 4 IN BED IN NARAYANAN'S POSITION. PT ON 3L OF O2 VIA NC. NO SOB NOTED. RESPIRATIONS EVEN AND UNLABORED. PT DENIES PAIN OR DISCOMFORT. PLAN OF CARE DISCUSSED. CALL LIGHT WITHIN REACH. WILL MONITOR.
[2019-06-20 20:00] VITALS: BP 108/70
[2019-06-20] MEDS: ATORVASTATIN 40 MG TABLET PO SCH (21:03)
[2019-06-20] MEDS: FAMOTIDINE (20 MG) 20 MG TABLET PO SCH (21:03)
[2019-06-21] MEDS: ALBUTEROL HALF STRENGTH 1.25 MG/3 ML VIAL.NEB NEB SCH ×6 (03:26→23:30)
[2019-06-21] MEDS: IPRATROPIUM NEB FS 0.5 MG/2.5 ML AMPUL.NEB NEB SCH ×6 (03:26→23:30)
[2019-06-21 04:00] VITALS: BP 100/67
--- NOTE | 2019-06-21 07:00 | NUR ---
RN CLOSING NOTE PT ASLEEP IN BED IN NARAYANAN'S POSITION, ON 3L OF O2 VIA NC, NO SOB NOTED, SATURATING WELL, RESPIRATIONS EVEN AND UNLABORED, NO SIGNS OF RESPIRATORY DISTRESS NOTED. NO INDICATIONS OF PAIN OR DISCOMFORT. IV SITE ON RIGHT AC G20 INTACT, PATENT, WITH HEP LOCK IN PLACE. BED IN LOW POSITION, BED ALARM ON, CALL LIGHT WITHIN REACH. ENDORSED TO MORNING SHIFT.
--- NOTE | 2019-06-21 07:00 | NUR ---
MS RN OPENING NOTE RECEIVED REPORT FROM [facility] SHIFT NURSE. PT ASLEEP IN BED, ON 02 VIA NC 3L/MIN, SATURATING WELL, RESPIRATIONS EVEN AND UNLABORED, NO SIGNS OF RESPIRATORY DISTRESS NOTED. IV SITE ON RIGHT AC G20 INTACT, PATENT, WITH HEP LOCK IN PLACE. BED IN LOW POSITION, LOCKED, CALL LIGHT WITHIN REACH.
[2019-06-21 08:00] VITALS: BP_SYST 106; BP_SYST 97; BP_DIAS 61; BP_DIAS 67
[2019-06-21] MEDS: PROSOURCE / PROSTAT (PYXIS) 30 ML UDC PO SCH (08:00)
[2019-06-21] MEDS: PREGABALIN 100 MG CAPSULE PO SCH ×2 (08:05→16:34)
[2019-06-21] MEDS: LEVOTHYROXINE SODIUM 88 MCG TABLET PO SCH (08:05)
[2019-06-21] MEDS: MULTIVIT W/MINERALS 1 TAB TABLET PO SCH (08:05)
[2019-06-21] MEDS: predniSONE 20 MG TABLET PO SCH (08:05)
[2019-06-21] MEDS: CHLORHEXIDINE GLUCONATE 15 ML UDC MM SCH ×2 (08:05→16:34)
[2019-06-21] MEDS: ASPIRIN EC 81 MG TABLET.DR PO SCH (08:05)
[2019-06-21] MEDS: FOLIC ACID 1 MG TABLET PO SCH (08:05)
[2019-06-21] MEDS: FUROSEMIDE 40 MG TABLET PO SCH (08:05)
[2019-06-21] MEDS: ASCORBIC ACID 500 MG TABLET PO SCH (08:05)
[2019-06-21] MEDS: FLUTICASONE PROPIONATE 16 GM BOTTLE NS SCH ×2 (08:05→16:34)
[2019-06-21] MEDS: ENOXAPARIN SODIUM 100 MG/ML DISP.SYRIN SQ SCH (08:08)
[2019-06-21 16:00] VITALS: BP_SYST 107; BP_SYST 98; BP_DIAS 56; BP_DIAS 64
--- NOTE | 2019-06-21 18:42 | NUR ---
MS RN CLOSING NOTE PT AWAKE IN BED, ALERT AND ORIENTED X 3, ON 02 VIA NC 3L/MIN, SATURATING WELL, RESPIRATIONS EVEN AND UNLABORED, NO SIGNS OF RESPIRATORY DISTRESS NOTED. IV SITE ON RIGHT AC G20 INTACT, PATENT, WITH HEP LOCK IN PLACE. BED IN LOW POSITION, LOCKED, CALL LIGHT WITHIN REACH. PROVIDED SAFETY AND COMFORT TO PT THROUGHOUT SHIFT. ALL DUE MEDS GIVEN. WILL ENDORSE TO NOC SHIFT NURSE.
[2019-06-21 20:00] VITALS: BP 96/59
--- NOTE | 2019-06-21 20:00 | NUR ---
RN NOTE RECEIVED PT AWAKE IN BED, ALERT AND ORIENTED X 3, ON 02 VIA NC 3L/MIN, SATURATING WELL, RESPIRATIONS EVEN AND UNLABORED, NO SIGNS OF RESPIRATORY DISTRESS NOTED. IV SITE ON RIGHT AC G20 INTACT, PATENT, WITH HEP LOCK IN PLACE. BED IN LOW POSITION, LOCKED, CALL LIGHT WITHIN REACH. PATIENT HAS BEEN PROVIDED SAFETY AND COMFORT . WILL CONTINUE TO MONITOR.
--- NOTE | 2019-06-21 21:00 | NUR ---
RN NOTES NO CHANGES NOTED IN PATIENT CONDITION SINCE LAST ASSESSMENT. PATIENT IS IN STABLE CONDITION , NO SOB, NO PAIN AT THIS TIME. PATIENT CARE HAS BEEN ENDORSED TO ALICIA GUY CONT. OF PATIENT CARE.
--- NOTE | 2019-06-21 21:10 | NUR ---
MS/RN notes Patient received in bed, Awake, A/Ox4. denies any pain or discomfort at this time, In no acute distress, breathing even and unlabored. No SOB noted. On O2 via NC as ordered. HOB elevated to Semi menon position. Safety maintained, bed at the lowest locked position. Call light within reach. Will continue to monitor as per plan of care.
[2019-06-21] MEDS: FAMOTIDINE (20 MG) 20 MG TABLET PO SCH (21:54)
[2019-06-21] MEDS: ATORVASTATIN 40 MG TABLET PO SCH (21:54)
[2019-06-22] VITALS: BP 96/59
[2019-06-22] MEDS: IPRATROPIUM NEB FS 0.5 MG/2.5 ML AMPUL.NEB NEB SCH ×6 (03:02→23:30)
[2019-06-22] MEDS: ALBUTEROL HALF STRENGTH 1.25 MG/3 ML VIAL.NEB NEB SCH ×6 (03:03→23:30)
[2019-06-22 04:00] VITALS: BP 99/53
[2019-06-22] MEDS: ACETAMINOPHEN 325 MG TABLET PO PRN ×2 (05:27→20:15)
--- NOTE | 2019-06-22 07:05 | NUR ---
MS/RN exit notes Patient remained in bed, Awake, A/Ox4. watching TV, denies any pain or discomfort at this time, In no acute distress, breathing even and unlabored. No SOB noted. On O2 via NC as ordered. HOB elevated to Semi menon position. saturation 98%, VSS, afebrile, Due meds given as ordered, tolerated well. IV site with no S/S of infection, infiltration, Safety maintained, bed at the lowest locked position. Call light within reach. Endorsed to AM shift nurse for NAZ.
--- NOTE | 2019-06-22 07:29 | NUR ---
MS RN OPENING NOTE RECEIVED REPORT FROM [facility] SHIFT NURSE. PT ASLEEP IN BED, ON 02 VIA NC 3L/MIN, SATURATING WELL, RESPIRATIONS EVEN AND UNLABORED, NO SIGNS OF RESPIRATORY DISTRESS NOTED. IV SITE ON RIGHT AC G20 INTACT, PATENT, WITH HEP LOCK IN PLACE. BED IN LOW POSITION, LOCKED, CALL LIGHT WITHIN REACH.
[2019-06-22 07:30] VITALS: BP 105/55
[2019-06-22] MEDS ORDERED: ALBU1.25 NEB (07:53)
[2019-06-22] MEDS ORDERED: IPRA0.2S9 NEB (07:53)
[2019-06-22] MEDS ORDERED: PRED20TA PO (07:53)
[2019-06-22] MEDS ORDERED: ALLA266C2 TP (07:53)
[2019-06-22] MEDS ORDERED: CHLO473M2 MM (07:53)
[2019-06-22] MEDS ORDERED: FURO40TA5 PO (07:53)
[2019-06-22 08:00] VITALS: BP 105/55
[2019-06-22] MEDS: FLUTICASONE PROPIONATE 16 GM BOTTLE NS SCH ×2 (08:47→16:29)
[2019-06-22] MEDS: MULTIVIT W/MINERALS 1 TAB TABLET PO SCH (08:53)
[2019-06-22] MEDS: predniSONE 20 MG TABLET PO SCH (08:53)
[2019-06-22] MEDS: FUROSEMIDE 40 MG TABLET PO SCH (08:53)
[2019-06-22] MEDS: ASPIRIN EC 81 MG TABLET.DR PO SCH (08:53)
[2019-06-22] MEDS: CHLORHEXIDINE GLUCONATE 15 ML UDC MM SCH ×2 (08:53→16:29)
[2019-06-22] MEDS: LEVOTHYROXINE SODIUM 88 MCG TABLET PO SCH (08:53)
[2019-06-22] MEDS: FOLIC ACID 1 MG TABLET PO SCH (08:53)
[2019-06-22] MEDS: PREGABALIN 100 MG CAPSULE PO SCH ×2 (08:53→16:29)
[2019-06-22] MEDS: ASCORBIC ACID 500 MG TABLET PO SCH (08:53)
[2019-06-22] MEDS: PROSOURCE / PROSTAT (PYXIS) 30 ML UDC PO SCH (08:54)
[2019-06-22 16:00] VITALS: BP 102/54
--- NOTE | 2019-06-22 19:25 | NUR ---
MS/RN notes Patient received in bed, Awake, A/Ox4. denies any pain or discomfort at this time, In no acute distress, breathing even and unlabored. No SOB noted. On O2 via NC @ 3LPM. HOB elevated to Semi menon position. Safety maintained, bed at the lowest locked position. Call light within reach. Will continue to monitor as per plan of care.
--- NOTE | 2019-06-22 19:51 | NUR ---
MS RN CLOSING NOTE PT AWAKE, ALERT AND ORIENTED X4, ON 02 VIA NC 3L/MIN, SATURATING WELL, RESPIRATIONS EVEN AND UNLABORED, NO SIGNS OF RESPIRATORY DISTRESS NOTED. IV SITE ON RIGHT AC G20 INTACT, PATENT, WITH HEP LOCK IN PLACE. BED IN LOW POSITION, LOCKED, CALL LIGHT WITHIN REACH. PROVIDED SAFETY AND COMFORT TO PT THROUGHOUT SHIFT, ALL DUE MEDS GIVEN. ENDORSED TO NOC SHIFT NURSE.
[2019-06-22 20:00] VITALS: BP 112/60
[2019-06-22] MEDS: FAMOTIDINE (20 MG) 20 MG TABLET PO SCH (21:00)
[2019-06-22] MEDS: ATORVASTATIN 40 MG TABLET PO SCH (21:01)
[2019-06-23] VITALS: BP 112/60
[2019-06-23] MEDS: ALBUTEROL HALF STRENGTH 1.25 MG/3 ML VIAL.NEB NEB SCH ×6 (03:30→23:30)
[2019-06-23] MEDS: IPRATROPIUM NEB FS 0.5 MG/2.5 ML AMPUL.NEB NEB SCH ×6 (03:30→23:30)
[2019-06-23 04:00] VITALS: BP 111/65
--- NOTE | 2019-06-23 06:49 | NUR ---
MS/RN exit notes Patient remained in bed, Awake, A/Ox4. denies any pain or discomfort at this time, In no acute distress, breathing even and unlabored. No SOB noted. On O2 via NC as ordered. HOB elevated to Semi menon position. saturation 97%, VSS, afebrile, Due meds given as ordered, tolerated well. IV site with no S/S of infection, infiltration, Safety maintained, bed at the lowest locked position. Call light within reach. Will endorsed to AM shift nurse for NAZ.
[2019-06-23 08:00] VITALS: BP 120/68
[2019-06-23] MEDS: CHLORHEXIDINE GLUCONATE 15 ML UDC MM SCH ×2 (09:18→17:00)
[2019-06-23] MEDS: LEVOTHYROXINE SODIUM 88 MCG TABLET PO SCH (09:19)
[2019-06-23] MEDS: FUROSEMIDE 40 MG TABLET PO SCH (09:19)
[2019-06-23] MEDS: FLUTICASONE PROPIONATE 16 GM BOTTLE NS SCH ×2 (09:19→18:37)
[2019-06-23] MEDS: ASPIRIN EC 81 MG TABLET.DR PO SCH (09:19)
[2019-06-23] MEDS: predniSONE 20 MG TABLET PO SCH (09:19)
[2019-06-23] MEDS: PREGABALIN 100 MG CAPSULE PO SCH ×2 (09:19→18:37)
[2019-06-23] MEDS: MULTIVIT W/MINERALS 1 TAB TABLET PO SCH (09:19)
[2019-06-23] MEDS: FOLIC ACID 1 MG TABLET PO SCH (09:19)
[2019-06-23] MEDS: ASCORBIC ACID 500 MG TABLET PO SCH (09:21)
[2019-06-23] MEDS: PROSOURCE / PROSTAT (PYXIS) 30 ML UDC PO SCH (09:25)
[2019-06-23 16:00] VITALS: BP 110/68
--- NOTE | 2019-06-23 19:14 | NUR ---
RN NOTES: RECEIVED AWAKE ON BED, A/OX2-3, ON O2 AT 3L/MIN VIA NC, [id number], BR, RAC G#20 PATENT, ORIENTED TO UNIT AND STAFF, BED LOW AND LOCKED, CALL LIGHT WITHIN EASY REACH,FALL,SAFETY, AND ASPIRATION PRECAUTION OBSERVED.AWAITING FOR BED AVAILABILITY IN [place], FOR POSSIBLE DISCHARGE WHEN BED IS AVAILABLE. KEEP ON CLOSE WATCH, NEEDS ANTICIPATED.NO PAIN OR DISCOMFORT.
[2019-06-23 20:00] VITALS: BP 99/55
[2019-06-23] MEDS: ATORVASTATIN 40 MG TABLET PO SCH (22:02)
[2019-06-23] MEDS: FAMOTIDINE (20 MG) 20 MG TABLET PO SCH (22:03)
[2019-06-24] VITALS: BP 99/55
[2019-06-24] MEDS: ALBUTEROL HALF STRENGTH 1.25 MG/3 ML VIAL.NEB NEB SCH ×6 (03:30→22:38)
[2019-06-24] MEDS: IPRATROPIUM NEB FS 0.5 MG/2.5 ML AMPUL.NEB NEB SCH ×6 (03:30→22:38)
[2019-06-24 04:00] VITALS: BP 100/70
--- NOTE | 2019-06-24 07:39 | NUR ---
RN NOTES: -MORNING CARE DONE, CLEAN AND CHANGE, TURNING DONE, OFF LOADING OBSERVED. -KEEP ON MONITORED, FALL,SAFETY AND ASPIRATION PRECAUTION OBSERVED, ENDORSED FOR CONTINUITY OF CARE.
[2019-06-24 08:00] VITALS: BP 102/65
[2019-06-24] MEDS: PROSOURCE / PROSTAT (PYXIS) 30 ML UDC PO SCH (09:13)
[2019-06-24] MEDS: FUROSEMIDE 40 MG TABLET PO SCH (09:13)
[2019-06-24] MEDS: PREGABALIN 100 MG CAPSULE PO SCH ×2 (09:13→17:46)
[2019-06-24] MEDS: CHLORHEXIDINE GLUCONATE 15 ML UDC MM SCH ×2 (09:13→17:46)
[2019-06-24] MEDS: LEVOTHYROXINE SODIUM 88 MCG TABLET PO SCH (09:14)
[2019-06-24] MEDS: ASCORBIC ACID 500 MG TABLET PO SCH (09:14)
[2019-06-24] MEDS: FOLIC ACID 1 MG TABLET PO SCH (09:14)
[2019-06-24] MEDS: MULTIVIT W/MINERALS 1 TAB TABLET PO SCH (09:14)
[2019-06-24] MEDS: predniSONE 20 MG TABLET PO SCH (09:15)
[2019-06-24] MEDS: ASPIRIN EC 81 MG TABLET.DR PO SCH (09:16)
[2019-06-24] MEDS: FLUTICASONE PROPIONATE 16 GM BOTTLE NS SCH ×2 (09:17→17:47)
[2019-06-24 16:00] VITALS: BP 104/64
--- NOTE | 2019-06-24 18:15 | NUR ---
CLOSING PT AWAKE, ALERT AND ORIENTED X4, ON 02 VIA NC 3L/MIN, SATURATING WELL, RESPIRATIONS EVEN AND UNLABORED, NO SIGNS OF RESPIRATORY DISTRESS NOTED. IV SITE ON RIGHT AC G20 INTACT, PATENT, WITH HEP LOCK IN PLACE. BED IN LOW POSITION, LOCKED, CALL LIGHT WITHIN REACH. PROVIDED SAFETY AND COMFORT TO PT THROUGHOUT SHIFT, ALL DUE MEDS GIVEN. ENDORSED TO PM SHIFT NURSE.
[2019-06-24 20:00] VITALS: BP 103/65
[2019-06-24] MEDS: FAMOTIDINE (20 MG) 20 MG TABLET PO SCH (22:16)
[2019-06-24] MEDS: ATORVASTATIN 40 MG TABLET PO SCH (22:16)
[2019-06-25] VITALS: BP 104/75
[2019-06-25] MEDS: ALBUTEROL HALF STRENGTH 1.25 MG/3 ML VIAL.NEB NEB SCH ×6 (03:30→23:30)
[2019-06-25] MEDS: IPRATROPIUM NEB FS 0.5 MG/2.5 ML AMPUL.NEB NEB SCH ×6 (03:30→23:30)
[2019-06-25 04:00] VITALS: BP 121/68
[2019-06-25 08:00] VITALS: BP 105/68
[2019-06-25] MEDS: BUDESONIDE RESPULE INH 0.25 MG/2 ML AMPUL.NEB NEB SCH ×2 (09:00→19:50)
[2019-06-25] MEDS: FOLIC ACID 1 MG TABLET PO SCH (09:10)
[2019-06-25] MEDS: MULTIVIT W/MINERALS 1 TAB TABLET PO SCH (09:10)
[2019-06-25] MEDS: predniSONE 20 MG TABLET PO SCH (09:10)
[2019-06-25] MEDS: ASPIRIN EC 81 MG TABLET.DR PO SCH (09:10)
[2019-06-25] MEDS: PREGABALIN 100 MG CAPSULE PO SCH ×2 (09:10→16:59)
[2019-06-25] MEDS: FUROSEMIDE 40 MG TABLET PO SCH (09:10)
[2019-06-25] MEDS: CHLORHEXIDINE GLUCONATE 15 ML UDC MM SCH ×2 (09:10→16:59)
[2019-06-25] MEDS: PROSOURCE / PROSTAT (PYXIS) 30 ML UDC PO SCH (09:11)
[2019-06-25] MEDS: FLUTICASONE PROPIONATE 16 GM BOTTLE NS SCH ×2 (09:11→16:59)
[2019-06-25] MEDS: LEVOTHYROXINE SODIUM 88 MCG TABLET PO SCH (09:11)
[2019-06-25] MEDS: ASCORBIC ACID 500 MG TABLET PO SCH (09:11)
[2019-06-25] MEDS: ACETAMINOPHEN 325 MG TABLET PO PRN ×2 (12:52→19:35)
[2019-06-25 16:00] VITALS: BP 110/76
--- NOTE | 2019-06-25 19:00 | NUR ---
RN medsurg opening notes Received Pt from morning nurse. Pt is alert and oriented X3-4. Pt is laying in bed comfortably watching TV. Respiration is normal in 3 L NC. No SOB. No S/S of distress noted. IV sites at RAC # 20 is clean, intact, patent and SL. HOB elevated. Turn and reposition Q 2 HR. Safety precautions is maintained. Bed at low position, brakes locked, side rails upx3 and call light is within reach. Will continue to monitor.
--- NOTE | 2019-06-25 19:39 | NUR ---
ALICIA linaressurjudy notes Pt is complaining of pain on left hand and requesting tylenol. Administered Tylenol 325 mg/2 tabs/PO as ordered for pain per Pt request. Safety precautions is maintained. Will continue to monitor.
[2019-06-25 20:00] VITALS: BP_SYST 115; BP_SYST 134; BP_DIAS 65; BP_DIAS 71
[2019-06-25] MEDS: FAMOTIDINE (20 MG) 20 MG TABLET PO SCH (21:03)
[2019-06-25] MEDS: ATORVASTATIN 40 MG TABLET PO SCH (21:03)
[2019-06-26] MEDS: ALBUTEROL HALF STRENGTH 1.25 MG/3 ML VIAL.NEB NEB SCH ×6 (03:30→23:30)
[2019-06-26] MEDS: IPRATROPIUM NEB FS 0.5 MG/2.5 ML AMPUL.NEB NEB SCH ×6 (03:30→23:30)
[2019-06-26 04:00] VITALS: BP 124/65
--- NOTE | 2019-06-26 06:42 | NUR ---
RN medsurg closing notes Pt is resting in bed comfortably. Respiration is normal in 3L NC with O2 sat is 98%. No SOB. No S/S of distress noted. IV sites RAC# 20 is clean, intact, patent and SL. VS is stable. Routine meds were given as ordered. Skin care provided. Pt tolerated activity well. HOB elevated. Turned and repositioned Q 2 HR. Offloaded extremities with pillows. All needs met and attended. Safety precautions is maintained all the time. Bed at low position, brakes locked, side rails upX3 and call light is within reach. Will endorse to morning nurse for NAZ.
[2019-06-26 06:46] LABS: BASOPHILS % (AUTO) 0.4 % (0.0-2.0); EOSINOPHILS % (AUTO) 0.9 % (0.0-6.0); HEMATOCRIT 36 % (33-45); HEMOGLOBIN 11.8 g/dL (11.5-14.8); LYMPHOCYTES # (AUTO) 1.3 /CMM (0.8-4.8); LYMPHOCYTES % (AUTO) 19.9 % (20.0-44.0); MEAN CORPUSCULAR HGB CONC 32 g/dl (31.0-36.0); MEAN CORPUSCULAR VOLUME 83 fL (82-100); MONOCYTES # (AUTO) 0.8 /CMM (0.1-1.30); MONOCYTES % (AUTO) 11.4 % (2.0-12.0); NEUTROPHILS # (AUTO) 4.5 /CMM (1.8-8.9); NEUTROPHILS % (AUTO) 67.4 % (43.0-81.0); PLATELET COUNT (AUTO) 176 /CMM (150-450); RED BLOOD CELL COUNT(AUTO) 4.36 MIL/uL (4.0-5.2); WHITE BLOOD COUNT (AUTO) 6.7 K/uL (4.3-11.0)
[2019-06-26 07:07] LABS: CALCIUM, SERUM 9.7 mg/dL (8.5-10.1); CARBON DIOXIDE 28 mmol/L (21-32); CHLORIDE 109 mmol/L (98-107); CREATININE 1.4 mg/dL (0.6-1.3); GLUCOSE 98 mg/dL (74-106); MAGNESIUM 2.5 mg/dL (1.8-2.4); PHOSPHORUS 3.9 mg/dL (2.5-4.9); POTASSIUM 5.2 mmol/L (3.5-5.1); SODIUM SERUM 144 mmol/L (136-145); UREA NITROGEN, BLOOD 46 mg/dL (7-18)
[2019-06-26] MEDS ORDERED: PRED20TA PO (07:17)
--- NOTE | 2019-06-26 07:25 | NUR ---
MS RN OPENING NOTE" RECEIVED PATIENT IN BED, AWAKE A/0X4. ON CONT. O2 VIA NC @ 3LPM, TOLERATING WELL. NO SOB, NO RESPIRATORY DISTRESS NOTED. FREQUENT SUCTIONING TO BE DONE DUE TO PT. HX. NO PAIN REPORTED. RESPIRATIONS EQUAL AND UNLABORED. IV SITE CLEAN, DRY, INTACT AND PATENT. NO PAIN REPORTED. BED LOCKED, LOW AND AT SEMI-NARAYANAN'S POSITION. CALL LIGHT IN REACH. WILL CONTINUE TO MONITOR.
[2019-06-26] MEDS: BUDESONIDE RESPULE INH 0.25 MG/2 ML AMPUL.NEB NEB SCH ×2 (07:30→19:45)
[2019-06-26 08:00] VITALS: BP 102/79
[2019-06-26] MEDS ORDERED: SODIUM POLYSTYRENE SULFONATE 15 G/60 ML BOTTLE PO ONE (08:00)
[2019-06-26] MEDS: predniSONE 20 MG TABLET PO SCH (09:13)
[2019-06-26] MEDS: FOLIC ACID 1 MG TABLET PO SCH (09:13)
[2019-06-26] MEDS: CHLORHEXIDINE GLUCONATE 15 ML UDC MM SCH ×2 (09:13→16:16)
[2019-06-26] MEDS: LEVOTHYROXINE SODIUM 88 MCG TABLET PO SCH (09:13)
[2019-06-26] MEDS: ASCORBIC ACID 500 MG TABLET PO SCH (09:13)
[2019-06-26] MEDS: MULTIVIT W/MINERALS 1 TAB TABLET PO SCH (09:14)
[2019-06-26] MEDS: PREGABALIN 100 MG CAPSULE PO SCH ×2 (09:14→16:16)
[2019-06-26] MEDS: PROSOURCE / PROSTAT (PYXIS) 30 ML UDC PO SCH (09:14)
[2019-06-26] MEDS: ASPIRIN EC 81 MG TABLET.DR PO SCH (09:14)
[2019-06-26] MEDS: FLUTICASONE PROPIONATE 16 GM BOTTLE NS SCH ×2 (09:15→16:16)
[2019-06-26] MEDS: ACETAMINOPHEN 325 MG TABLET PO PRN ×3 (11:55→20:17)
[2019-06-26 16:00] VITALS: BP 107/63
--- NOTE | 2019-06-26 19:25 | NUR ---
MS RN CLOSING NOTE PATIENT IN BED, AWAKE A/0X4. ON CONT. O2 VIA NC @ 3LPM, TOLERATING WELL. NO SOB, NO RESPIRATORY DISTRESS NOTED. PAIN REPORTED ON SHIFT AND MANAGED WITH ACETAMINOPHEN 650. PATIENT IS AWARE OF DISCONTINUATION OF NORCO ORDER DUE TO LOW BP. RESPIRATIONS EQUAL AND UNLABORED. IV SITE CLEAN, DRY, INTACT AND PATENT. REFUSED HELP WITH SELF CARE. TURNING AND REPOSITIONING WITH PATIENT DONE. NO PAIN REPORTED. BED LOCKED, LOW AND AT SEMI-NARAYANAN'S POSITION. CALL LIGHT IN REACH. ENDORSED TO ONCOMING SHIFT FOR NAZ.
--- NOTE | 2019-06-26 19:35 | NUR ---
RN OPENING NOTES PATIENT RECEIVED FROM ALICIA CALZADA. PATIENT IS A/O X 3. PATIENT ABLE TO VERBALIZE NEEDS. NO SIGNS OF RESPIRATORY DISTRESS, NO SHORTNESS OF BREATH NOTED, RESPIRATIONS EVEN AND UNLABORED, ON 3LPM O2 VIA NC. NO COMPLAINTS OF PAIN OR DISCOMFORT AT THIS TIME. IV SITE RAC #20 INTACT, PATENT, SL, NO SIGNS OF INFECTION/INFILTRATION, FLUSHED. HOB ELEVATED. SAFETY PRECAUTIONS IMPLEMENTED; CALL LIGHT WITHIN REACH, BED LOW, BED LOCKED, BILATERAL UPPER SIDE RAILS UP. WILL CONTINUE TO MONITOR.
[2019-06-26 20:00] VITALS: BP 103/59
[2019-06-26] MEDS: FAMOTIDINE (20 MG) 20 MG TABLET PO SCH (21:17)
[2019-06-26] MEDS: ATORVASTATIN 40 MG TABLET PO SCH (21:17)
[2019-06-27] MEDS: IPRATROPIUM NEB FS 0.5 MG/2.5 ML AMPUL.NEB NEB SCH ×6 (03:30→22:42)
[2019-06-27] MEDS: ALBUTEROL HALF STRENGTH 1.25 MG/3 ML VIAL.NEB NEB SCH ×6 (03:30→22:42)
[2019-06-27 04:00] VITALS: BP 95/59
--- NOTE | 2019-06-27 06:09 | NUR ---
RN CLOSING NOTES PATIENT IS CURRENTLY ASLEEP IN BED, EASILY AWAKENED. PATIENT ABLE TO VERBALIZE NEEDS. NO SIGNS OF RESPIRATORY DISTRESS, NO SHORTNESS OF BREATH NOTED, RESPIRATIONS EVEN AND UNLABORED, ON 3LPM O2 VIA NC. NO SIGNS OF FACIAL GRIMACING INDICATING PAIN OR DISCOMFORT AT THIS TIME. IV SITE RAC #20 INTACT, PATENT, SL, NO SIGNS OF INFECTION/INFILTRATION, FLUSHED. PATIENT KEPT CLEAN DRY AND COMFORTABLE. PATIENT TURNED EVERY 2 HOURS, ALL SHEETS CHANGED,CLEANED. ALL NEEDS MET ON SHIFT. ALL DUE MEDS GIVEN ORDERED WITH NO ADVERSE EFFECTS. SKIN CARE PROVIDED. SAFETY PRECAUTIONS IMPLEMENTED; CALL LIGHT WITHIN REACH, BED LOW, BED LOCKED, BILATERAL UPPER SIDE RAILS UP. WILL ENDORSE TO DAY SHIFT NURSE FOR CONTINUITY OF CARE.
[2019-06-27 07:15] LABS: ALBUMIN 2.6 g/dL (3.4-5.0); BILIRUBIN,TOTAL 0.7 mg/dL (0.2-1.0); CALCIUM, SERUM 9.3 mg/dL (8.5-10.1); CREATININE 1.3 mg/dL (0.6-1.3); MAGNESIUM 2.4 mg/dL (1.8-2.4); PHOSPHORUS 3.8 mg/dL (2.5-4.9); POTASSIUM 4.7 mmol/L (3.5-5.1); TOTAL PROTEIN, SERUM 5.6 g/dL (6.4-8.2)
[2019-06-27 07:16] LABS: BASOPHILS % (AUTO) 0.3 % (0.0-2.0); EOSINOPHILS % (AUTO) 0.4 % (0.0-6.0); HEMATOCRIT 37 % (33-45); LYMPHOCYTES # (AUTO) 1.2 /CMM (0.8-4.8); LYMPHOCYTES % (AUTO) 17.8 % (20.0-44.0); MEAN CORPUSCULAR HGB CONC 32 g/dl (31.0-36.0); MEAN CORPUSCULAR VOLUME 84 fL (82-100); MONOCYTES # (AUTO) 0.8 /CMM (0.1-1.30); MONOCYTES % (AUTO) 11.4 % (2.0-12.0); NEUTROPHILS # (AUTO) 4.7 /CMM (1.8-8.9); NEUTROPHILS % (AUTO) 70.1 % (43.0-81.0); PLATELET COUNT (AUTO) 160 /CMM (150-450); RED BLOOD CELL COUNT(AUTO) 4.43 MIL/uL (4.0-5.2); WHITE BLOOD COUNT (AUTO) 6.8 K/uL (4.3-11.0)
[2019-06-27] MEDS: BUDESONIDE RESPULE INH 0.25 MG/2 ML AMPUL.NEB NEB SCH ×2 (07:25→19:30)
[2019-06-27 08:00] VITALS: BP 130/70
--- NOTE | 2019-06-27 08:00 | NUR ---
MS RN NOTE RECEIVED PATIENT IN BED . ALERT ORIENTED,ON 3L NS, NO SOB NOTED AT THIS TIME , BOTH LEGS WITH EDEMA , KEEP ELEVATED ON PILLOW TOLERATED ,RT AC HL INTACT AND FLUSHED WELL PLAN OF CARE DISCUSSED WITH PATIENT, NO C\O DISCOMFORT ,BED IN LOWEST AND LOCKED POSITION , CALL LIGHT WITHIN REACH, WILL CONT TO MONITOR
[2019-06-27] MEDS: LEVOTHYROXINE SODIUM 88 MCG TABLET PO SCH (09:12)
[2019-06-27] MEDS: FOLIC ACID 1 MG TABLET PO SCH (09:12)
[2019-06-27] MEDS: MULTIVIT W/MINERALS 1 TAB TABLET PO SCH (09:12)
[2019-06-27] MEDS: ASPIRIN EC 81 MG TABLET.DR PO SCH (09:12)
[2019-06-27] MEDS: PREGABALIN 100 MG CAPSULE PO SCH ×2 (09:12→16:42)
[2019-06-27] MEDS: predniSONE 20 MG TABLET PO SCH (09:12)
[2019-06-27] MEDS: CHLORHEXIDINE GLUCONATE 15 ML UDC MM SCH ×2 (09:12→16:42)
[2019-06-27] MEDS: ASCORBIC ACID 500 MG TABLET PO SCH (09:12)
[2019-06-27] MEDS: PROSOURCE / PROSTAT (PYXIS) 30 ML UDC PO SCH (09:13)
[2019-06-27] MEDS: FLUTICASONE PROPIONATE 16 GM BOTTLE NS SCH ×2 (09:19→16:49)
--- NOTE | 2019-06-27 09:42 | NUR ---
MS RN NOTE PER DR SURJIT BOWERS TO D\C TO SNF
[2019-06-27 10:00] VITALS: BP 130/70
--- NOTE | 2019-06-27 11:40 | NUR ---
RN NOTES Spoke with human services case manager regarding discharge , no available bed yet.
--- NOTE | 2019-06-27 13:26 | NUR ---
per cm renny waiting for authorizatio to snf.
--- NOTE | 2019-06-27 14:54 | NUR ---
MS RN NOTE KEEP CLEAN DRY , ALL NEEDS ATTENDED, ABLE TO EAT SELF
--- NOTE | 2019-06-27 16:59 | NUR ---
ff. up with cm still pending authorization.
--- NOTE | 2019-06-27 18:36 | NUR ---
RN MS CLOSING NOTES Pt in bed, verbally responsive. Vital signs wnl. No sob noted. Denies any pain or discomfort. Saline Lock on R AC #20. No signs of infiltration. Bed in lowest position, locked. Call light within reach. All needs met. Pending DC,per piano case maker still waiting for available bed at the SNF. Please follow up in AM. Will endorse to PM shift for jacqueline.
--- NOTE | 2019-06-27 19:40 | NUR ---
RN MS OPENING NOTES RECEIVED PATIENT IN BED RESTING , A/O X3. NO SOB OR ACUTE DISTRESS NOTED AT THIS TIME. PATIENT DENIES ANY PAIN. IV ON RAC #20 SL. PATENT AND FLUSHING WELL. NO INFILTRATION. MANJEET IN LOW/LOCKED POSITION, CALL LIGHT WITHIN REACH.
[2019-06-27 20:00] VITALS: BP 98/66
[2019-06-27] MEDS: FAMOTIDINE (20 MG) 20 MG TABLET PO SCH (23:11)
[2019-06-27] MEDS: ATORVASTATIN 40 MG TABLET PO SCH (23:11)
[2019-06-28] MEDS: ALBUTEROL HALF STRENGTH 1.25 MG/3 ML VIAL.NEB NEB SCH ×6 (03:13→23:30)
[2019-06-28] MEDS: IPRATROPIUM NEB FS 0.5 MG/2.5 ML AMPUL.NEB NEB SCH ×6 (03:13→23:30)
[2019-06-28 05:00] VITALS: BP 96/60
--- NOTE | 2019-06-28 07:23 | NUR ---
RN MS CLOSING NOTES PATIENT IN BED RESTING , A/O X3. NO SOB OR ACUTE DISTRESS NOTED AT THIS TIME. PATIENT DENIES ANY PAIN. IV ON RAC #20 SL. PATENT AND FLUSHING WELL. NO INFILTRATION. MANJEET IN LOW/LOCKED POSITION, CALL LIGHT WITHIN REACH. WILL ENDORSE THE CARE TO AM RN.
[2019-06-28] MEDS: BUDESONIDE RESPULE INH 0.25 MG/2 ML AMPUL.NEB NEB SCH ×2 (07:30→19:30)
[2019-06-28 08:00] VITALS: BP 97/63
[2019-06-28] MEDS: CHLORHEXIDINE GLUCONATE 15 ML UDC MM SCH ×2 (09:23→17:00)
[2019-06-28] MEDS: ASCORBIC ACID 500 MG TABLET PO SCH (09:24)
[2019-06-28] MEDS: ASPIRIN EC 81 MG TABLET.DR PO SCH (09:24)
[2019-06-28] MEDS: MULTIVIT W/MINERALS 1 TAB TABLET PO SCH (09:24)
[2019-06-28] MEDS: PREGABALIN 100 MG CAPSULE PO SCH ×2 (09:24→18:04)
[2019-06-28] MEDS: LEVOTHYROXINE SODIUM 88 MCG TABLET PO SCH (09:24)
[2019-06-28] MEDS: predniSONE 20 MG TABLET PO SCH (09:24)
[2019-06-28] MEDS: FOLIC ACID 1 MG TABLET PO SCH (09:25)
[2019-06-28] MEDS: FLUTICASONE PROPIONATE 16 GM BOTTLE NS SCH ×2 (09:26→18:05)
[2019-06-28] MEDS: PROSOURCE / PROSTAT (PYXIS) 30 ML UDC PO SCH (09:26)
[2019-06-28 13:00] VITALS: BP 106/67
[2019-06-28 16:00] VITALS: BP 105/63
--- NOTE | 2019-06-28 17:00 | NUR ---
follow-up placement with briefcase sewer still pending.
--- NOTE | 2019-06-28 19:34 | NUR ---
RN closing note Patient without change throughout shift. VSS, denies pain. Assisted with adl's as needed. Eating, drinking, voiding and sleeping well. Waiting SNF placement. Will endorse to NOC nurse of [facility].
[2019-06-28 20:00] VITALS: BP 91/51
--- NOTE | 2019-06-28 20:00 | NUR ---
ms galen initial notes received report from am nurse and seen pt in bed awake and alert on sitting position with 02 at 3 liters via nasal canula. no signs of any acute distress noted at this time. denies any pain or any discomfort. Pt is aware where she at. Re orient how to used the call light system and encourage her to use if she needs help. kept her warm and comfortable at all times. will continue monitoring. place call light at reach.
[2019-06-28] MEDS: ATORVASTATIN 40 MG TABLET PO SCH (22:16)
[2019-06-28] MEDS: FAMOTIDINE (20 MG) 20 MG TABLET PO SCH (22:16)
[2019-06-29] VITALS (7 sets, daily range): BP systolic 94–128; BP diastolic 54–76
[2019-06-29] MEDS: IPRATROPIUM NEB FS 0.5 MG/2.5 ML AMPUL.NEB NEB SCH ×6 (03:23→23:13)
[2019-06-29] MEDS: ALBUTEROL HALF STRENGTH 1.25 MG/3 ML VIAL.NEB NEB SCH ×6 (03:23→23:13)
[2019-06-29] MEDS: BUDESONIDE RESPULE INH 0.25 MG/2 ML AMPUL.NEB NEB SCH ×2 (07:30→19:30)
--- NOTE | 2019-06-29 07:42 | NUR ---
ms material planner closing notes pt awake and alert watching TV at this time , denies any pain or any discomfort. stable azael the night and slept well. kept her warm and comfortable at all times. no signs of any acute distress noted. endorse to am nurse for continuity of care. place call light at reach.
[2019-06-29] MEDS: LEVOTHYROXINE SODIUM 88 MCG TABLET PO SCH (08:39)
[2019-06-29] MEDS: predniSONE 20 MG TABLET PO SCH (08:39)
[2019-06-29] MEDS: ASPIRIN EC 81 MG TABLET.DR PO SCH (08:39)
[2019-06-29] MEDS: FOLIC ACID 1 MG TABLET PO SCH (08:39)
[2019-06-29] MEDS: ASCORBIC ACID 500 MG TABLET PO SCH (08:39)
[2019-06-29] MEDS: PREGABALIN 100 MG CAPSULE PO SCH ×2 (08:39→17:54)
[2019-06-29] MEDS: CHLORHEXIDINE GLUCONATE 15 ML UDC MM SCH ×2 (08:39→17:00)
[2019-06-29] MEDS: FLUTICASONE PROPIONATE 16 GM BOTTLE NS SCH ×2 (08:39→17:54)
[2019-06-29] MEDS: MULTIVIT W/MINERALS 1 TAB TABLET PO SCH (08:39)
[2019-06-29] MEDS: PROSOURCE / PROSTAT (PYXIS) 30 ML UDC PO SCH (12:33)
--- NOTE | 2019-06-29 19:07 | NUR ---
RN closing notes Patient without change throughout shift. VSS, denies pain. Assisted as needed with adl's. Tolerating food, fluids and medications well. Slept on/off throughout shift. Pending SNF placement. Will endorse to NOC nurse.
--- NOTE | 2019-06-29 19:15 | NUR ---
MS RN OPENING NOTES: RECEIVED PATIENT IN BED, A/O X3. WITH O2 AT 3L/MIN. NO SOB NOTED. COMFORTABLE. LUNGS ARE CLEAR ON AUSCULTATION, NO WHEEZING NOTED. CALL LIGHT WITHIN REACH. BED ALARM ON AND BED IN LOWEST AND LOCKED POSITION. NO COMPLAIN OF PAIN.
[2019-06-29] MEDS: ATORVASTATIN 40 MG TABLET PO SCH (21:08)
[2019-06-29] MEDS: FAMOTIDINE (20 MG) 20 MG TABLET PO SCH (21:08)
--- NOTE | 2019-06-29 23:30 | NUR ---
patient is not in air mattress, charge nurse said no need to order it since patient is going to D/C tomorrow. Turned patient to sides and changed positions.
[2019-06-29] MEDS: ACETAMINOPHEN 325 MG TABLET PO PRN (23:40)
--- NOTE | 2019-06-29 23:58 | NUR ---
patient had BM,soft moderate amount. cleaned the patient, changed diaper. noted a small wound on the left upper thigh near the coccyx area. right lower abdomen skin lesions intact skin and bruising. on breastfold with very minimal rashes.
[2019-06-30] MEDS: IPRATROPIUM NEB FS 0.5 MG/2.5 ML AMPUL.NEB NEB SCH ×4 (03:17→15:30)
[2019-06-30] MEDS: ALBUTEROL HALF STRENGTH 1.25 MG/3 ML VIAL.NEB NEB SCH ×4 (03:18→15:30)
--- NOTE | 2019-06-30 05:23 | NUR ---
MS RN CLOSING NOTES: PATIENT IN BED, ASLEEP. HEMODYNAMICALLY STABLE. AFEBRILE. NO SOB NOTED. WITH O2 AT 3L/MIN. HAD BM LAST NIGHT. KEPT PATIENT CLEAN AND DRY. TURNED AND CHANGED POSITION. BILATERAL HEELS OFFLOADED. CALL LIGHT WITHIN REACH. BED ALARM ON. BED IN LOWEST AND LOCKED POSITION.
[2019-06-30 05:39] VITALS: BP 90/54
--- NOTE | 2019-06-30 06:12 | NUR ---
TRANSFER OF CARE NOTES: Reports given to Shubham VARGAS for continuity of care.
[2019-06-30 06:15] VITALS: BP 118/68
--- NOTE | 2019-06-30 06:15 | NUR ---
MS RN NOTES RECEIVED PT FROM MS1. AWAKE & RESPONSIVE. NOT IN ANY DISTRESS. NO SOB NOTED. DENIES ANY PAIN OR DISCOMFORT AT THIS TIME. WITH IV-HL PATENT & INTACT. MONITORED ACCORDINGLY. CALL LIGHT WITHIN REACH. BED IN LOWEST POSITION. SR UP X 2 FOR SAFETY. WILL ENDORSE TO NEXT SHIFT.
[2019-06-30] MEDS: BUDESONIDE RESPULE INH 0.25 MG/2 ML AMPUL.NEB NEB SCH (07:30)
[2019-06-30 08:00] VITALS: BP 118/68
--- NOTE | 2019-06-30 08:00 | NUR ---
MS RN OPENING NOTES Received Patient awake and resting in bed. A/O x 4. VS stable with no acute distress. Breathing even and unlabored on 3LPM via NC with no respiratory distress. Denies pain. 20g PIV on RAC clean, intact, patent and flushing well. Safety precautions in place. Bed locked and set to lowest position with side rails x 2 up. All needs rendered at this time. Call light within reach. Will continue to monitor.
--- NOTE | 2019-06-30 08:22 | NUR ---
WOUND CARE CONSULT: PT PRESENTS WITH INCONTINENCE, DRY SKIN ON LOWER LEGS, AREAS OF SKIN DISCOLORATION AND MOISTURE TO SKIN FOLDS, PRESENT ON ADMISSION. INCONTINENCE ASSOCIATED SKIN IRRITATION NOTED TO LEFT UPPER THIGH. RECOMMENDATIONS MADE FOR SKIN PROTECTION. DISCUSSED WITH NURSING STAFF. PT ON MARY KATE ISOFLEX LOW AIRLOSS BED. WILL SEE PRN. CURRENT MARY SCORE IS 13. MD IN AGREEMENT WITH PLAN OF CARE. Addendum: 06/30/19 at 0823 by JAYDEN CARRERA WNDNU Amended: Links added.
[2019-06-30] MEDS ORDERED: MINERAL OIL/PETROLATUM,WHITE 120 GM JAR TP SCH (09:00)
[2019-06-30] MEDS: CHLORHEXIDINE GLUCONATE 15 ML UDC MM SCH ×2 (09:44→16:25)
[2019-06-30] MEDS: MULTIVIT W/MINERALS 1 TAB TABLET PO SCH (09:45)
[2019-06-30] MEDS: PREGABALIN 100 MG CAPSULE PO SCH ×2 (09:45→16:25)
[2019-06-30] MEDS: ASPIRIN EC 81 MG TABLET.DR PO SCH (09:45)
[2019-06-30] MEDS: ACETAMINOPHEN 325 MG TABLET PO PRN ×2 (09:45→16:42)
[2019-06-30] MEDS: LEVOTHYROXINE SODIUM 88 MCG TABLET PO SCH (09:45)
[2019-06-30] MEDS: FOLIC ACID 1 MG TABLET PO SCH (09:45)
[2019-06-30] MEDS: predniSONE 20 MG TABLET PO SCH (09:45)
[2019-06-30] MEDS: ASCORBIC ACID 500 MG TABLET PO SCH (09:45)
[2019-06-30] MEDS: PROSOURCE / PROSTAT (PYXIS) 30 ML UDC PO SCH (09:48)
[2019-06-30] MEDS: FLUTICASONE PROPIONATE 16 GM BOTTLE NS SCH ×2 (09:50→16:25)
[2019-06-30 16:00] VITALS: BP 114/64
--- NOTE | 2019-06-30 16:50 | NUR ---
MS OBGYN NURSE NOTES Patient discharged for [facility] at this time. A/O x 4. VS stable with no acute distress. Breathing even and unlabored on 3LPM via NC with no respiratory distress. Patient stated mild pain on left hand. Administered Tylenol 650mg at 1645 prior to discharge. Patient otherwise comfortable. Skin assessment photos taken and placed in chart. Dressings clean, dry and intact. Removed intact PIV on RAC. Patient tolerated well. Medication reconciliation and discharge orders reviewed and explained to Patient. Patient verbalized understanding. All belongings with patient. Patient will follow up with PCP at SNF. Patient picked up by [facility]. Report given to Joe VRAGAS.
== END 2019-06-30 16:50 | DRG 189 ==
LOC: ER 23:25 → ICU 06-14 04:03 → TELE-TD 06-15 11:23 → TELE1 06-15 11:56 → MEDSG1 06-16 10:13 → MEDSG2 06-30 06:10
PROVIDERS: ADMIT Internal Medicine; ATTEND Internal Medicine
DX: J96.01 Acute respiratory failure with hypoxia (principal); N17.0 Acute kidney failure with tubular necrosis; I50.33 Acute on chronic diastolic (congestive) heart failure; J44.1 Chronic obstructive pulmonary disease with (acute) exacerbation; G93.40 Encephalopathy, unspecified; I11.0 Hypertensive heart disease with heart failure; M79.7 Fibromyalgia; E03.9 Hypothyroidism, unspecified; Z87.442 Personal history of urinary calculi; Z86.73 Personal history of transient ischemic attack (TIA), and cerebral infarction without residual deficits; F03.90 Unspecified dementia, unspecified severity, without behavioral disturbance, psychotic disturbance, mood disturbance, and anxiety; I73.9 Peripheral vascular disease, unspecified; H05.20 Unspecified exophthalmos; Z86.718 Personal history of other venous thrombosis and embolism; Z88.1 Allergy status to other antibiotic agents; Z91.041 Radiographic dye allergy status; Z88.5 Allergy status to narcotic agent; Z91.013 Allergy to seafood; Z88.2 Allergy status to sulfonamides; Z88.8 Allergy status to other drugs, medicaments and biological substances; Z91.018 Allergy to other foods; Z79.51 Long term (current) use of inhaled steroids; Z79.01 Long term (current) use of anticoagulants; Z79.899 Other long term (current) drug therapy; Z79.82 Long term (current) use of aspirin
CPT/HCPCS: 36415; 36600; 71045-TC; 80048-TC; 80053-TC; 80061-TC; 80076-TC; 82728-TC; 82803-TC; 83540-TC; 83605-TC; 83735-TC; 83880; 84100-TC; 84439-TC; 84443-TC; 84484-TC; 85025-TC; 87040-TC; 87081-TC; 93307-TC; 93970-TC; 94760-TC; 94799-TC; 97112-TC; 97530-TC; A6253; A6403; G0378; J0696; J1650; J1940; J2930; J7040; J7060

== ENCOUNTER 2019-08-01 12:31 | Inpatient (IN) | payer OTHER ==
[2019-08-01] VITALS (20 sets, daily range): BP systolic 93–151; BP diastolic 32–84
[~2019-08-01] VITALS: Ht 167.6 cm; Wt 113.4 kg
[~2019-08-01 12:31] MED LIST changes: +ALBU1.25 NEB; -ALBU2.5V13 IH; +ALLA266C2 TP; +ASPI-1152 PO; -BACL20TA PO; +CALC-770 PO; -CEFT1FRO2 IV; +CHLO473M2 MM; -CLOP75TA15 PO; -CRAN1CAP6 PO; -ENOX60DI SQ; +FAMO40TA7 PO; -FLUO10CA26 PO; +FURO40TA5 PO; +Folic Acid PO; -GUAI5SYR PO; -HYDR-4354 PO; -HYDR-4384 PO; +IPRA0.2S9 NEB; -LEVO75TA7 PO; +LEVO88TA5 PO; -MEGE400O PO; -ONDA4TAB5 PO; -PANT40TA4 PO; -POLY17PO4 PO; +PRED20TA PO; +PREG100C55 PO; -PREG75CA PO; +TIOT18CA3 IH
--- NOTE | 2019-08-01 12:34 | NUR ---
PT BIB [facility] C/O SOB AND HYPOXIA O2 SAT 79% IN FIELD, PT IS AAOX2, NOTED RESPIRATORY DISTRESS, HOOKED TO GARMENT FOLDER AND O2 AT 3 LPM VIA NC, KEPT RESTED AND COMFORTABLE, WILL CONTINUE TO MONITOR.
--- NOTE | 2019-08-01 12:37 | NUR ---
SEEN AND EXAMINED BY .
[2019-08-01] MEDS ORDERED: CHLO473M5 MM (12:47)
[2019-08-01] MEDS ORDERED: FOLI0.4T2 PO (12:47)
[2019-08-01] MEDS ORDERED: BUDE10.22 IH (12:47)
[2019-08-01] MEDS ORDERED: SENN-168 PO (12:47)
[2019-08-01] MEDS ORDERED: ACET-2605 PO (12:47)
[2019-08-01] MEDS ORDERED: IPRA0.2S9 IH (12:47)
[2019-08-01] MEDS ORDERED: FURO-144 PO (12:47)
[2019-08-01] MEDS ORDERED: ALBU1.257 IH (12:47)
[2019-08-01] MEDS ORDERED: HYDR-4384 PO (12:47)
--- NOTE | 2019-08-01 12:48 | NUR ---
RT AT BEDSIDE FOR BIPAP SET UP.
--- NOTE | 2019-08-01 12:57 | NUR ---
CALLED FOR ICU BED AND SUBMITTED MOVE SHEET TO ADMITTING.
--- NOTE | 2019-08-01 13:01 | NUR ---
HEAD OF MUSIC AT BEDSIDE FOR XRAY.
[2019-08-01 13:05] LABS: ABG PCO2 44.9 mmHg (35.0-45.0); ABG PH 7.344 (7.350-7.450); ABG PO2 77.2 mmHg (75.0-100.0); AaDO2 156.4 mmHg; MetHb 0.3 % (0.0-1.5); O2Hb 92.8 % (94.0-97.0); SITE, ABG Left Radial; VENT MODE, BG N/C
--- NOTE | 2019-08-01 13:19 | NUR ---
ICU BED 256
--- NOTE | 2019-08-01 13:53 | NUR ---
CALLED [facility].
[2019-08-01] MEDS ORDERED: methylPREDNISolone SOD SUCC 125 MG/2ML VIAL ONE (13:57)
[2019-08-01] MEDS ORDERED: IPRATROPIUM NEB FS 0.5 MG/2.5 ML AMPUL.NEB NEB ONE (14:00)
[2019-08-01] MEDS ORDERED: ALBUTEROL FS 2.5 MG/3 ML VIAL.NEB CONTNEB ONE (14:00)
[2019-08-01] MEDS ORDERED: methylPREDNISolone SOD SUCC 125 MG/2ML VIAL IV ONE ×2 (14:00→16:00)
[2019-08-01] MEDS ORDERED: IPRATROPIUM NEB FS 0.5 MG/2.5 ML AMPUL.NEB ONE ×2 (14:03→16:40)
[2019-08-01] MEDS ORDERED: ALBUTEROL FS 2.5 MG/3 ML VIAL.NEB ONE (14:03)
--- NOTE | 2019-08-01 14:05 | NUR ---
PICC LINE NURSE AT BEDSIDE.
--- NOTE | 2019-08-01 14:32 | NUR ---
PT. REC. IN ER AWAKE AND RESPONSIVE, @ 1250 X3 AT THE BEDSIDE. PER DR. CARPENTER ORDER ON BIPAP WAS HOLD OFF PT. WAS NASAL SUCTIONED FOR LARGE AMT OF YELLOW THICK SECRETIONS. PLACED ON NRB MASK POST ABG RESULTS. @ 1405 HHN TX'S ORDERED AND GIVEN. PATIENT STILL LOOKS MORE LETHARGIC THAN BEFORE. @ 1420 PT. PLACED ON BIPAP WITH NOTED SETTINGS. AND CONTINUE TO MONITOR CLOSELY. B/S STILL RALES/RHONCHI EQUAL CHEST RISE NOTED. PT. CE. BIPAP AMBU BAG REMAIN AT THE BEDSIDE. Addendum: 08/01/19 at 1440 by LOBO LÓPEZ RT Amended: Links added.
[2019-08-01 14:36] LABS: BASOPHILS # (AUTO) 0.4 /CMM (0.0-0.2); BASOPHILS % (AUTO) 4.1 % (0.0-2.0); EOSINOPHILS % (AUTO) 1.3 % (0.0-6.0); HEMATOCRIT 40 % (33-45); HEMOGLOBIN 12.5 g/dL (11.5-14.8); LYMPHOCYTES # (AUTO) 1.9 /CMM (0.8-4.8); LYMPHOCYTES % (AUTO) 17.4 % (20.0-44.0); MEAN CORPUSCULAR HGB CONC 31 g/dl (31.0-36.0); MEAN CORPUSCULAR VOLUME 84 fL (82-100); MONOCYTES # (AUTO) 0.7 /CMM (0.1-1.30); MONOCYTES % (AUTO) 6.8 % (2.0-12.0); NEUTROPHILS # (AUTO) 7.7 /CMM (1.8-8.9); NEUTROPHILS % (AUTO) 70.4 % (43.0-81.0); PLATELET COUNT (AUTO) 176 /CMM (150-450); RED BLOOD CELL COUNT(AUTO) 4.74 MIL/uL (4.0-5.2); WHITE BLOOD COUNT (AUTO) 10.9 K/uL (4.3-11.0)
[2019-08-01 14:46] LABS: CALCIUM, SERUM 10.2 mg/dL (8.5-10.1); CARBON DIOXIDE 28 mmol/L (21-32); CHLORIDE 112 mmol/L (98-107); CREATININE 1.4 mg/dL (0.6-1.3); GLUCOSE 98 mg/dL (74-106); POTASSIUM 3.8 mmol/L (3.5-5.1); SODIUM SERUM 150 mmol/L (136-145); UREA NITROGEN, BLOOD 47 mg/dL (7-18)
[2019-08-01 15:01] LABS: ALANINE AMINOTRANSFERASE 17 U/L (12-78); ALBUMIN 2.9 g/dL (3.4-5.0); ALKALINE PHOSPHATASE 103 U/L (46-116); ASPARTATE AMINOTRANSFERASE 44 U/L (15-37); B-TYPE NATRIURETIC PEPTIDE 14781 PG/ML (0-125); BILIRUBIN,DIRECT 0.4 mg/dL (0.0-0.2); BILIRUBIN,TOTAL 1.1 mg/dL (0.2-1.0); TOTAL PROTEIN, SERUM 6.4 g/dL (6.4-8.2)
[2019-08-01 15:11] LABS: ABG BASE EXCESS -0.2 mmol/L; ABG OXYGEN SATURATION 98.6 % (92.0-98.5); ABG PCO2 36.2 mmHg (35.0-45.0); ABG PH 7.433 (7.350-7.450); ABG PO2 166.6 mmHg (75.0-100.0); AaDO2 510.2 mmHg; COHb 0.5 % (0.5-1.5); MetHb 0.4 % (0.0-1.5); O2Hb 97.7 % (94.0-97.0); SITE, ABG Left Radial; VENT MODE, BG BIPAP 15/5 PS10
[2019-08-01] MEDS ORDERED: PIPERACILLIN /TAZOBACTAM 2.25 G in IV D5W 50 ML IV ONE (15:35)
--- NOTE | 2019-08-01 15:40 | NUR ---
WAITING TO SEND PT TO ICU
[2019-08-01] MEDS ORDERED: VANCOMYCIN 1 GM in IV NS 0.9% 250 ML IV ONE (16:00)
[2019-08-01] MEDS ORDERED: NOREPINEPHRINE 8 MG in IV D5W 500 ML IV PRN (16:00)
--- NOTE | 2019-08-01 16:10 | NUR ---
GIOVANNI CALLED ITS TAMI
--- NOTE | 2019-08-01 16:30 | NUR ---
TECH AT BEDSIDE FOR US.
--- NOTE | 2019-08-01 16:45 | NUR ---
REPORT GIVEN TO ALICIA SYKES FOR NAZ, WITH ONGOING LEVOPHED AND ANTIBIOTIC.
[2019-08-01] MEDS: IPRATROPIUM NEB FS 0.5 MG/2.5 ML AMPUL.NEB NEB SCH ×3 (16:50→23:21)
--- NOTE | 2019-08-01 17:30 | NUR ---
RN INITIAL NOTES 1700 RECEIVED PT AWAKE, A/OX1-2 FROM ER. PT ON BIPAP. SOB NOTED. DENIES ANY PAIN. CONNECTED TO MONITOR. PT ON LEVO AT 5MCG/MIN, SBP >90MMHG. BODY ASSESSMENT DONE, PICTURES TAKEN AND PLACED IN THE CHART. FC IN PLACE. PT COMFORTABLE. FOR PICC INSERTION. DR SHELTON AT BEDSIDE. AWAITING FOR ADMISSION ORDERS. WILL CLOSELY MONITOR
[2019-08-01] MEDS: IV D5/ 0.9% NACL 1,000 ML IV PRN (18:53)
[2019-08-01] MEDS: methylPREDNISolone SOD SUCC 125 MG/2ML VIAL IV SCH (18:53)
--- NOTE | 2019-08-01 19:00 | NUR ---
RN CLOSING NOTES PT REMAINS ON BIPAP. NO RESPIRATORY DISTRESS NOTED. NO SOB NOTED. DENIES ANY PAIN. LORENA MIDLINE REMOVED AND LORENA PICC INSERTED BY PICC RN. REMAINS ON LEVO AT 5MCG/MIN. IVF INFUSING. FC IN PLACE. PT COMFORTABLE. ENDORSED FOR CONTINUITY OF CARE
--- NOTE | 2019-08-01 19:30 | NUR ---
QUARTER FOLDER INITIAL SHIFT NOTES RECEIVED PATIENT IN BED, AWAKE, A/O X2 ABLE TO VERBALIZE NEEDS, LETHARGIC. PATIENT ON BIPAP, TOLERATING WELL. BEDSIDE SCREEN PRINTING PASTER READS SINUS RHYTHM HR 74 BPM. NOTED WITH LORENA PICC, PATENT AND INTACT, LEVOPHED GTT @ 5MCG/MIN WELL D5NS @ 125ML/HR. BOUDREAUX CATHETER PATENT AND INTACT, DRAINING CLEAR YELLOW URINE VIA GRAVITY. HOB KEPT ELEVATED IN SEMIFOWLERS POSITION FOR COMFORT. WILL MONITOR CLOSELY
[2019-08-01] MEDS: ALBUTEROL HALF STRENGTH 1.25 MG/3 ML VIAL.NEB NEB SCH ×2 (20:17→23:21)
[2019-08-01] MEDS ORDERED: BUMETANIDE INJ 2 MG in IV NS 0.9% 32 ML IV ONE (20:30)
[2019-08-01] MEDS: ENOXAPARIN SODIUM 30 MG/0.3 ML DISP.SYRIN SQ SCH (21:03)
[2019-08-02] VITALS (99 sets, daily range): BP systolic 61–175; BP diastolic 22–116
[2019-08-02] MEDS: ALBUTEROL HALF STRENGTH 1.25 MG/3 ML VIAL.NEB NEB SCH ×6 (03:30→23:46)
[2019-08-02] MEDS: IPRATROPIUM NEB FS 0.5 MG/2.5 ML AMPUL.NEB NEB SCH ×6 (03:31→23:46)
[2019-08-02 04:41] LABS: BASOPHILS # (AUTO) 0.1 /CMM (0.0-0.2); BASOPHILS % (AUTO) 0.6 % (0.0-2.0); HEMATOCRIT 41 % (33-45); HEMOGLOBIN 12.8 g/dL (11.5-14.8); LYMPHOCYTES # (AUTO) 0.5 /CMM (0.8-4.8); LYMPHOCYTES % (AUTO) 4.9 % (20.0-44.0); MEAN CORPUSCULAR HGB CONC 31 g/dl (31.0-36.0); MEAN CORPUSCULAR VOLUME 85 fL (82-100); MONOCYTES # (AUTO) 0.2 /CMM (0.1-1.30); MONOCYTES % (AUTO) 2.2 % (2.0-12.0); NEUTROPHILS # (AUTO) 9.6 /CMM (1.8-8.9); NEUTROPHILS % (AUTO) 92.3 % (43.0-81.0); PLATELET COUNT (AUTO) 191 /CMM (150-450); RED BLOOD CELL COUNT(AUTO) 4.84 MIL/uL (4.0-5.2); WHITE BLOOD COUNT (AUTO) 10.4 K/uL (4.3-11.0)
[2019-08-02] MEDS: IV D5/ 0.9% NACL 1,000 ML IV PRN (04:55)
[2019-08-02 05:01] LABS: CALCIUM, SERUM 9.3 mg/dL (8.5-10.1); CREATININE 1.3 mg/dL (0.6-1.3); PHOSPHORUS 3.6 mg/dL (2.5-4.9); POTASSIUM 3.2 mmol/L (3.5-5.1)
--- NOTE | 2019-08-02 07:47 | NUR ---
WOUND CARE CONSULT: PT PRESENTS WITH DRY SCALY SKIN TO LOWER LEGS WITH SKIN DISCOLORATION TO FEET AND SKIN FOLDS, PRESENT ON ADMISSION. DUSKY COLOR NOTED TO TOES. RECOMMENDATIONS MADE FOR SKIN PROTECTION AND SKIN CARE. DISCUSSED WITH NURSING STAFF. MARY KATE ISOFLEX LOW AIRLOSS BED TO BE PLACED. WILL SEE PRN. RUST IN AGREEMENT WITH PLAN OF CARE. CURRENT MARY SCORE IS 12. Addendum: 08/02/19 at 0749 by JAYDEN CARRERA WNDNU Amended: Links added.
[2019-08-02] MEDS: methylPREDNISolone SOD SUCC 125 MG/2ML VIAL IV SCH ×2 (08:11→17:51)
--- NOTE | 2019-08-02 08:45 | NUR ---
TRENCH PIPE LAYER HELPER NOTE SEEN AND EXAMINED BY DR. SHELTON, WITH VERBAL ORDERS FOR SWALLOW EVAL, PATIENT OFF BIPAP ON 5LPM O2 VIA NC, CHANGE IVF TO D5W AT 100ML/HR. NOTED AND CARRIED OUT.
[2019-08-02] MEDS: IV D5W 1,000 ML IV PRN ×2 (09:10→19:15)
--- NOTE | 2019-08-02 09:30 | NUR ---
RT TOOK PT OFF BIPAP AT 0825 PER MD ORDER AND PLACED PT ON 5LPM VIA NC. 0930- ABG RESULTS SHOWN TO DR. RED. MAINTAIN PT ON 5-6LPM VIA NC PER MD ORDER.
[2019-08-02 09:32] LABS: ABG BASE EXCESS -1.4 mmol/L; ABG OXYGEN SATURATION 88.9 % (92.0-98.5); ABG PCO2 39.3 mmHg (35.0-45.0); ABG PH 7.391 (7.350-7.450); ABG PO2 55.7 mmHg (75.0-100.0); AaDO2 184.3 mmHg; COHb 0.6 % (0.5-1.5); MetHb 0.4 % (0.0-1.5); SITE, ABG Right Radial; VENT MODE, BG Nasal Cannula
--- NOTE | 2019-08-02 09:37 | NUR ---
STORE ASSISTANT NOTE SEEN AND EXAMINED BY DR. RED WITH ORDERS FOR EXTUBATION AND OK TO START ON REGULAR DIET, NO SWALLOW EVAL NEEDED
[2019-08-02] MEDS: ACETYLCYSTEINE 10% SOLN 400 MG/4 ML VIAL NEB SCH ×3 (11:49→23:46)
[2019-08-02] MEDS: POTASSIUM CL. PREMIX PERIPHER. 50 ML IV SCH ×4 (12:15→15:18)
[2019-08-02] MEDS: MINERAL OIL/PETROLATUM,WHITE 120 GM JAR TP SCH (12:16)
[2019-08-02] MEDS: Z GUARD REMEDY 2 OZ OINT TP SCH (12:16)
[2019-08-02] MEDS ORDERED: GUAIFENESIN/D-METHORPHAN HB 5 ML UDC PO PRN (14:30)
[2019-08-02] MEDS: GUAIFENESIN 300 MG/15 ML UDC PO PRN ×2 (14:49→21:00)
[2019-08-02] MEDS: NOREPINEPHRINE 8 MG in IV D5W 500 ML IV PRN (14:50)
--- NOTE | 2019-08-02 19:20 | NUR ---
ICU/RN NOTES PATIENT RECEIVED IN BED. AWAKE , ALERT AND ORIENTED X3, IN NO ACUTE DISTRESS. BREATHING EVEN AND UNLABORED. NO SHORTNESS OF BREATH NOTED. ON O2 5LPM VIA NC, SATURATION 92%. SINUS RHYTHM ON THE MONITOR. LORENA PICC LINE IN PLACE, PATENT. LEVOPHED RUNNING AT 4MCG/MIN. BLOOD PRESSURE STABLE. BOUDREAUX CATH IN PLACE, PATENT, PER DAY SHIFT NURSE, ITS BEEN LEAKING. WILL CONTINUE TO MONITOR, WITH YELLOW COLOR URINE. SAFETY MAINTAINED. BED AT THE LOWEST LOCKED POSITION. CALLED LIGHT WITHIN REACH. WILL CONTINUE TO MONITOR PER PLAN OF CARE.
[2019-08-02] MEDS: ENOXAPARIN SODIUM 30 MG/0.3 ML DISP.SYRIN SQ SCH (21:04)
[2019-08-02 21:44] LABS: APPEARANCE,URINE SL CLOUDY (CLEAR); BILIRUBIN,URINE NEGATIVE (NEGATIVE); BLOOD, URINE LARGE Ery/uL (NEGATIVE); COLOR,URINE YELLOW (YELLOW); KETONES,URINE NEGATIVE (NEGATIVE); LEUKOCYTE ESTERASE ,URINE MODERATE (NEGATIVE); NITRITE, URINE NEGATIVE (NEGATIVE); PROTEIN,URINE TRACE mg/dl (NEGATIVE); UGLUCOSE NEGATIVE (NEGATIVE); UROBILINOGEN,URINE 0.2 EU/dL (0.2)
[2019-08-02 21:52] LABS: BACTERIA,URINE Moderate /HPF (None Seen); MUCUS,URINE Moderate /LPF (None Seen); RBC,URINE TOO NUMEROUS TO COUN /HPF (0-2); SQUAMOUS EPITHELIAL CELL,UR Few /HPF (None Seen); URINE AMORPHOUS URATE Moderate /HPF (None Seen); WBC,URINE 21-50 /HPF (0-3)
[2019-08-02 22:11] LABS: EOSINOPHIL,URINE None Seen
[2019-08-02 22:13] LABS: CREATININE, URINE 71.2 MG/DL (30.0-125.0)
[2019-08-03] VITALS (99 sets, daily range): BP systolic 78–123; BP diastolic 26–81
--- NOTE | 2019-08-03 00:24 | NUR ---
BOUDREAUX CATH STILL LEAKING, NOTED WET KIARA. PATIENT DENIES TO RE-INSERT.
--- NOTE | 2019-08-03 00:29 | NUR ---
labs called to notify that patient is positive for MRSA right nares. Called [facility] with new order. noted and carried out. Addendum: 08/03/19 at 0536 by JERRY VELASQUEZ RN ROVERTO
[2019-08-03] MEDS: IPRATROPIUM NEB FS 0.5 MG/2.5 ML AMPUL.NEB NEB SCH ×6 (03:31→23:00)
[2019-08-03] MEDS: ALBUTEROL HALF STRENGTH 1.25 MG/3 ML VIAL.NEB NEB SCH ×6 (03:31→23:00)
[2019-08-03] MEDS: IV D5W 1,000 ML IV PRN (04:23)
[2019-08-03 04:29] LABS: BASOPHILS % (AUTO) 0.1 % (0.0-2.0); HEMATOCRIT 39 % (33-45); HEMOGLOBIN 12.1 g/dL (11.5-14.8); LYMPHOCYTES # (AUTO) 0.6 /CMM (0.8-4.8); LYMPHOCYTES % (AUTO) 5.4 % (20.0-44.0); MEAN CORPUSCULAR HGB CONC 31 g/dl (31.0-36.0); MEAN CORPUSCULAR VOLUME 84 fL (82-100); MONOCYTES # (AUTO) 0.5 /CMM (0.1-1.30); MONOCYTES % (AUTO) 5.3 % (2.0-12.0); NEUTROPHILS # (AUTO) 9.1 /CMM (1.8-8.9); NEUTROPHILS % (AUTO) 89.2 % (43.0-81.0); PLATELET COUNT (AUTO) 222 /CMM (150-450); RED BLOOD CELL COUNT(AUTO) 4.62 MIL/uL (4.0-5.2); WHITE BLOOD COUNT (AUTO) 10.2 K/uL (4.3-11.0)
[2019-08-03 04:51] LABS: CALCIUM, SERUM 9.2 mg/dL (8.5-10.1); CREATININE 1.3 mg/dL (0.6-1.3); MAGNESIUM 1.8 mg/dL (1.8-2.4); PHOSPHORUS 2.1 mg/dL (2.5-4.9); POTASSIUM 3.4 mmol/L (3.5-5.1)
[2019-08-03 07:08] LABS: PTH, INTACT 415 pg/mL (15-65)
--- NOTE | 2019-08-03 07:15 | NUR ---
WATERWORKS EMPLOYEE NOTES RECEIVED PATIENT AOX2-3 , NOT IN ACUTE DISTRESS ,DENIES SOB , SPO2 OF 100% VIA 5LPM NC , SR WITH BBB 75 ON BEDSIDE MONITOR , FC DRAINING VIA GRAVITY , LORENA PICC LINE WITH LEVOPHED @ 5MCG/MIN , D52 @ 100ML/HR INFUSING WELL , ALL NEEDS ATTENDED , SIDE RAILS X2 CALL LIGHT WITHIN REACH , HOB @ 45 , WILL CONTINUE TO MONITOR
--- NOTE | 2019-08-03 07:16 | NUR ---
ICU/RN NOTES PATIENT REMAINED IN BED. AWAKE , ALERT AND ORIENTED X3, IN NO ACUTE DISTRESS. BREATHING EVEN AND UNLABORED. NO SHORTNESS OF BREATH NOTED. ON O2 5LPM VIA NC, SATURATION 91%. SINUS RHYTHM ON THE MONITOR. LORENA PICC LINE IN PLACE, PATENT. LEVOPHED RUNNING AT 5MCG/MIN. BLOOD PRESSURE STABLE. BOUDREAUX CATH IN PLACE, PATENT, WITH YELLOW COLOR URINE 500CC IN THIS SHIFT. SAFETY MAINTAINED. BED AT THE LOWEST LOCKED POSITION. CALLED LIGHT WITHIN REACH. ENDORSE TO AM SHIFT NURSE FOR NAZ. .
[2019-08-03] MEDS: ACETYLCYSTEINE 10% SOLN 400 MG/4 ML VIAL NEB SCH ×3 (07:46→23:00)
[2019-08-03] MEDS: MUPIROCIN OINT 2% 22 GM TUBE SCH ×2 (08:11→20:27)
[2019-08-03] MEDS: methylPREDNISolone SOD SUCC 125 MG/2ML VIAL IV SCH ×2 (08:11→16:10)
[2019-08-03] MEDS: Z GUARD REMEDY 2 OZ OINT TP SCH (08:11)
[2019-08-03] MEDS: POTASSIUM CHLORIDE 20 MEQ TAB.PRT.SR PO SCH ×4 (08:11→10:15)
[2019-08-03] MEDS: MINERAL OIL/PETROLATUM,WHITE 120 GM JAR TP SCH (08:12)
--- NOTE | 2019-08-03 08:30 | NUR ---
BASKETBALLS AND FOOTBALLS REVERSER NOTES SEEN AND EVALUATED BY DR RED , DISCUSSED LABS , OFF BIPAP , CURRENTLY @ 5LPM NC SPO2 OF 95-98% WITH NON PRODUCTIVE COUGH , ON LEVOPHED @ 2MCG/MIN , UNABLE TO TURN OFF PT IS SENSITIVE , PER MD ORDER STATS CORTISOL LEVEL , ORDER CARRIED OUT
--- NOTE | 2019-08-03 08:52 | NUR ---
INPATIENT AUDITOR NOTES PT COMPLAINING OF OF MILD PAIN 3/10 AT ABDOMEN , NO PRN PAIN MEDICATION ORDERED , NOTIFIED DR RED , ORDERED TYLENOL 650MQ Q6 PRN , ORDER CARRIED OUT
[2019-08-03] MEDS: ACETAMINOPHEN 325 MG TABLET PO PRN ×2 (09:03→09:11)
--- NOTE | 2019-08-03 09:08 | NUR ---
SURVEY WORKER NOTES TYLENOL 650MG AND K DUR 20MEQ WASTED , PT DOESN'T WANT TO TAKE IT WITH APPLESAUCE ,
[2019-08-03] MEDS ORDERED: K PHOS NEUTRAL 250 MG TABLET PO ONE (09:30)
[2019-08-03] MEDS: GUAIFENESIN 300 MG/15 ML UDC PO PRN ×3 (10:40→22:35)
--- NOTE | 2019-08-03 13:00 | NUR ---
HEAD END DESIZING MACHINE OPERATOR NOTES NOTIFIED DR SHELTON TO REVIEW AND CONTINUE MEDICATION RECONCILIATION , AWARE
[2019-08-03] MEDS: NOREPINEPHRINE 8 MG in IV D5W 500 ML IV PRN (16:10)
--- NOTE | 2019-08-03 19:00 | NUR ---
TRUCK DRIVER'S OFFSIDER NOTES PATIENT STABLE , AOX2-3 , NOT IN ACUTE DISTRESS ,DENIES SOB , SPO2 OF 91 - 92% VIA 4LPM NC , SR WITH BBB 80 ON BEDSIDE MONITOR , FC DRAINING VIA GRAVITY , LORENA PICC LINE WITH LEVOPHED @ 2MCG/MIN NS @ TKO INFUSING WELL , ALL NEEDS ATTENDED , SIDE RAILS X2 CALL LIGHT WITHIN REACH , HOB @ 45 , REPORT GIVEN TO PM NURSE FOR CONTINUITY OF CARE
[2019-08-03] MEDS: Z GUARD REMEDY 2 OZ OINT TP PRN (20:26)
[2019-08-03] MEDS: ENOXAPARIN SODIUM 30 MG/0.3 ML DISP.SYRIN SQ SCH (20:28)
--- NOTE | 2019-08-03 23:56 | NUR ---
RN NOTES RECEIVED PATIENT IN BED, AWAKE, ALERT AND ORIENTED WITH NO DISTRESS NOTED. BREATHING EVEN AND UNLABORED. ON 4L 02 VIA NASAL CANNULA TOLERATING WELL. REFUSED BIPAP, EXPLAINED RISK AND BENEFITS STILL PATIENT REFUSED. NO COMPLAINT OF PAIN OR DISCOMFORT. LEVOPED HELD BUT RE-STARTED AT 1999 FOR LOW BP 80/55 AT 2 MCG/KG/HR. NO ADVERSE EFFECT NOTED. VITAL SIGNS WNL. KEPT CLEAN AND DRY. WILL CONTINUE TO MONITOR.
[2019-08-04] VITALS (56 sets, daily range): BP systolic 90–140; BP diastolic 55–77
[2019-08-04] MEDS: ALBUTEROL HALF STRENGTH 1.25 MG/3 ML VIAL.NEB NEB SCH ×6 (03:52→23:06)
[2019-08-04] MEDS: IPRATROPIUM NEB FS 0.5 MG/2.5 ML AMPUL.NEB NEB SCH ×6 (03:52→23:06)
[2019-08-04 04:41] LABS: BASOPHILS % (AUTO) 0.2 % (0.0-2.0); HEMATOCRIT 39 % (33-45); HEMOGLOBIN 12.2 g/dL (11.5-14.8); LYMPHOCYTES # (AUTO) 0.8 /CMM (0.8-4.8); LYMPHOCYTES % (AUTO) 9.4 % (20.0-44.0); MEAN CORPUSCULAR HGB CONC 32 g/dl (31.0-36.0); MEAN CORPUSCULAR VOLUME 83 fL (82-100); MONOCYTES # (AUTO) 0.4 /CMM (0.1-1.30); MONOCYTES % (AUTO) 5.4 % (2.0-12.0); NEUTROPHILS # (AUTO) 6.8 /CMM (1.8-8.9); PLATELET COUNT (AUTO) 224 /CMM (150-450); RED BLOOD CELL COUNT(AUTO) 4.66 MIL/uL (4.0-5.2); WHITE BLOOD COUNT (AUTO) 8.1 K/uL (4.3-11.0)
[2019-08-04 04:57] LABS: CALCIUM, SERUM 9.7 mg/dL (8.5-10.1); CREATININE 1.2 mg/dL (0.6-1.3); MAGNESIUM 2.2 mg/dL (1.8-2.4); PHOSPHORUS 1.9 mg/dL (2.5-4.9)
--- NOTE | 2019-08-04 07:16 | NUR ---
ADMINISTRATIVE INTERN OPENING NOTE RECEIVED BEDSIDE REPORT. PT AWAKE IN BED, ALERT AND ORIENTED X 4, ON 02 VIA NC 4L/MIN, SATURATING WELL, RESPIRATIONS EVEN AND UNLABORED, NO SIGNS OF RESPIRATORY DISTRESS NOTED. BOUDREAUX CATHETER INTACT, PATENT, DRAINING YELLOW URINE, PER NOC SHIFT RN BOUDREAUX CATHETER WAS CHANGED ON 08/03/2019 BUT CONTINUES TO LEAK. LEFT UPPER ARM PICC LINE INTACT, PATENT, SECURED WITH CLEAN DRESSING, LEVOPHED DRIP INFUSING AT 1MCG/MIN, TOLERATING WELL. BED IN LOW POSITION, LOCKED, CALL LIGHT WITHIN REACH. WILL CONTINUE TO MONITOR.
--- NOTE | 2019-08-04 07:30 | NUR ---
rn notes patient in bed, alert and oriented. able to communicate needs. still on levo drip at 1mcg. no adverse effect noted. noted with productive cough, gave robitussin with relief. no complaint of pain. kept clean and dry. vital signs wnl. endorsed to next shift for continuity of care.
[2019-08-04 08:06] LABS: *SPE A/G RATIO 0.9 (0.7-1.7); *SPE ALBUMIN 2.5 g/dL (2.9-4.4); *SPE ALPHA-1-GLOBULIN 0.5 g/dL (0.0-0.4); *SPE ALPHA-2-GLOBULIN 0.7 g/dL (0.4-1.0); *SPE GLOBULIN, TOTAL 2.9 g/dL (2.2-3.9); *SPE M-SPIKE Not Observed g/dL (Not Observed); *SPEGAMMA GLOBULIN 0.7 g/dL (0.4-1.8)
[2019-08-04] MEDS: ACETYLCYSTEINE 10% SOLN 400 MG/4 ML VIAL NEB SCH ×3 (08:07→23:06)
[2019-08-04] MEDS: methylPREDNISolone SOD SUCC 125 MG/2ML VIAL IV SCH (08:11)
[2019-08-04] MEDS: HYDROCORTISONE SOD SUCCINATE 100 MG/2 ML VIAL IV SCH ×3 (08:12→17:21)
[2019-08-04] MEDS: NEUTRA PHOS 1 POWD.PACKET PO SCH ×2 (08:14→16:00)
[2019-08-04] MEDS ORDERED: BUMETANIDE INJ 2 MG in IV NS 0.9% 32 ML IV ONE (08:30)
[2019-08-04] MEDS: MINERAL OIL/PETROLATUM,WHITE 120 GM JAR TP SCH (09:13)
[2019-08-04] MEDS: Z GUARD REMEDY 2 OZ OINT TP SCH (09:13)
[2019-08-04] MEDS: MUPIROCIN OINT 2% 22 GM TUBE SCH ×2 (09:13→21:10)
[2019-08-04] MEDS: GUAIFENESIN 300 MG/15 ML UDC PO PRN ×2 (11:26→23:37)
[2019-08-04] MEDS: HYDROCODONE/APAP 5/325MG 1 EACH TABLET PO PRN (14:03)
--- NOTE | 2019-08-04 16:45 | NUR ---
RECEIVED PHONE CALL FROM [employer] WITH CRITICAL LAB RESULT: CORTISOL 3.8 SPOKE WITH
--- NOTE | 2019-08-04 16:57 | NUR ---
PT REFUSED BED BATH, "I RATHER WAIT, I HAVE MY FAMILY MEMBERS COMING TO VISIT ME. I WANT TO HAVE A BED BATH AND BE CLEANED AFTER THEY COME."
[2019-08-04] MEDS ORDERED: HYDROCORTISONE SOD SUCCINATE 100 MG/2 ML VIAL IV SCH (17:00)
--- NOTE | 2019-08-04 19:00 | NUR ---
RN OPENING NOTES RECEIVED BEDSIDE REPORT FROM ALICIA BLEVINS FOR NAZ. PATIENT AWAKE, A/OX4, ON TELE MONITOR SR WITH HR 90'S. ON OXYGEN VIA NC 5L, SATURATING 90% AT THE MOMENT, RESPIRATIONS EVEN AND UNLABORED, NO SIGNS OF RESPIRATORY DISTRESS NOTED. BOUDREAUX CATHETER INTACT, PATENT, DRAINING WELL. LORENA PICC LINE FLUSHING AND PATENT, SITE C/D/I; ON LEVOPHED DRIP INFUSING AT 1MCG/MIN, TOLERATING WELL, WILL TITRATE PER PROTOCOL. PER AM RN, PATIENT REFUSED BED BATH, ASKED PATIENT WHAT TIME SHE WANTS BED BATH STATED "AT 5 IN THE MORNING" SAFETY MEASURES IN PLACE; CALL LIGHT WITHIN REACH, SR UP X2, HOB ELEVATED, WILL CONTINUE TO MONITOR PT CLOSELY.
--- NOTE | 2019-08-04 19:04 | NUR ---
ENDORSED TO NOC SHIFT NURSE
[2019-08-04] MEDS: ACETAMINOPHEN 325 MG TABLET PO PRN (21:04)
[2019-08-04] MEDS: NOREPINEPHRINE 8 MG in IV D5W 500 ML IV PRN (21:07)
[2019-08-04] MEDS: ENOXAPARIN SODIUM 30 MG/0.3 ML DISP.SYRIN SQ SCH (21:08)
--- NOTE | 2019-08-04 23:35 | NUR ---
RN NOTES PATIENT REQUESTING FOR COUGH MEDICATION. PRN MEDICATION CHECKED. WILL ADMINISTER ROBITUSSIN PRN PER PT REQUEST.
[2019-08-05] VITALS (87 sets, daily range): BP systolic 82–173; BP diastolic 38–107
[2019-08-05] MEDS: ALBUTEROL HALF STRENGTH 1.25 MG/3 ML VIAL.NEB NEB SCH ×6 (03:26→23:43)
[2019-08-05] MEDS: IPRATROPIUM NEB FS 0.5 MG/2.5 ML AMPUL.NEB NEB SCH ×6 (03:26→23:44)
[2019-08-05 04:54] LABS: BASOPHILS % (AUTO) 0.2 % (0.0-2.0); HEMATOCRIT 38 % (33-45); LYMPHOCYTES # (AUTO) 0.6 /CMM (0.8-4.8); LYMPHOCYTES % (AUTO) 9.8 % (20.0-44.0); MEAN CORPUSCULAR HGB CONC 32 g/dl (31.0-36.0); MEAN CORPUSCULAR VOLUME 83 fL (82-100); MONOCYTES # (AUTO) 0.5 /CMM (0.1-1.30); MONOCYTES % (AUTO) 9.2 % (2.0-12.0); NEUTROPHILS # (AUTO) 4.6 /CMM (1.8-8.9); NEUTROPHILS % (AUTO) 80.8 % (43.0-81.0); PLATELET COUNT (AUTO) 194 /CMM (150-450); WHITE BLOOD COUNT (AUTO) 5.7 K/uL (4.3-11.0)
[2019-08-05 05:06] LABS: CALCIUM, SERUM 9.4 mg/dL (8.5-10.1); CREATININE 1.3 mg/dL (0.6-1.3); POTASSIUM 4.2 mmol/L (3.5-5.1)
[2019-08-05] MEDS ORDERED: RIVAROXABAN 10 MG TABLET PO SCH (07:00)
--- NOTE | 2019-08-05 07:10 | NUR ---
RN OPENING NOTES PATIENT AWAKE, A/OX4, ON TELE MONITOR SR WITH HR 80'S. ON OXYGEN VIA NC 5L, SATURATING 95% AT THE MOMENT, RESPIRATIONS EVEN AND UNLABORED, NO SIGNS OF RESPIRATORY DISTRESS NOTED. BOUDREAUX CATHETER INTACT, PATENT, DRAINING WELL. LORENA PICC LINE FLUSHING AND PATENT, SITE C/D/I. NOW OFF PRESSORS, TITRATED PER PROTOCOL. KEPT PT CLEAN, DRY, AND COMFORTABLE. SAFETY MEASURES IN PLACE; CALL LIGHT WITHIN REACH, SR UP X2, HOB ELEVATED. BEDSIDE REPORT GIVEN TO ALICIA MOSES FOR NAZ. Addendum: 08/05/19 at 1950 by ISAAC SAMUEL RN CORRECTION: RN CLOSING NOTES
[2019-08-05] MEDS: ACETYLCYSTEINE 10% SOLN 400 MG/4 ML VIAL NEB SCH ×3 (07:25→23:44)
[2019-08-05] MEDS: Z GUARD REMEDY 2 OZ OINT TP SCH (09:00)
[2019-08-05] MEDS: HYDROCORTISONE SOD SUCCINATE 100 MG/2 ML VIAL IV SCH ×3 (09:49→18:06)
[2019-08-05] MEDS: MINERAL OIL/PETROLATUM,WHITE 120 GM JAR TP SCH (10:03)
[2019-08-05] MEDS: Z GUARD REMEDY 2 OZ OINT TP PRN ×2 (10:04→10:06)
[2019-08-05] MEDS: MUPIROCIN OINT 2% 22 GM TUBE SCH ×2 (10:05→21:03)
[2019-08-05] MEDS: ACETAMINOPHEN 325 MG TABLET PO PRN ×2 (18:02→18:19)
[2019-08-05] MEDS: RIVAROXABAN 10 MG TABLET PO SCH (18:03)
--- NOTE | 2019-08-05 19:10 | NUR ---
RN OPENING NOTES RECEIVED BEDSIDE REPORT FROM ALICIA MOSES FOR NAZ. PATIENT AWAKE, A/OX4, ON TELE MONITOR SR WITH HR 90'S. ON OXYGEN VIA NC 5L, SATURATING 92% AT THE MOMENT, RESPIRATIONS EVEN AND UNLABORED, NO SIGNS OF RESPIRATORY DISTRESS NOTED. BUODREAUX CATHETER INTACT, PATENT, DRAINING WELL. LORENA PICC LINE FLUSHING AND PATENT, SITE C/D/I. PER AM RN, LEVO DRIP OFF SINCE 1800. SAFETY MEASURES AND ISOLATION PRECAUTION IN PLACE; CALL LIGHT WITHIN REACH, SR UP X2, HOB ELEVATED, WILL CONTINUE TO MONITOR PT CLOSELY.
--- NOTE | 2019-08-05 20:56 | NUR ---
RN NOTES PATIENT REQUESTING FOR NORCO STATING "IT'S BEEN AWHILE SINCE I TOOK TYLENOL AND IT DIDN'T HELP" PAIN 8/10 LOWER LEG PAIN PER PATIENT. WILL ADMINISTER PRN PAIN MEDICATION.
[2019-08-05] MEDS: HYDROCODONE/APAP 5/325MG 1 EACH TABLET PO PRN (21:01)
--- NOTE | 2019-08-05 21:19 | NUR ---
PT IS AWAKE AND ALERT. PT IS REFUSING THE BIPAP AT THIS TIME. RN IS AWARE. WILL CONT TO MONITOR PT.
--- NOTE | 2019-08-05 22:00 | NUR ---
RN NOTES PATIENT STATED SHE STILL HAS LEG PAIN S/P NORCO GIVEN 1HR AGO. PT AGREED TO REPOSITION TO HOPEFULLY ALLEVIATE PAIN.
--- NOTE | 2019-08-05 22:59 | NUR ---
RN NOTES PATIENT NOTED WITH HEMATURIA, PT ON XARELTO QD, POOL COORDINATOR HOSPITALIST PAGED AND MADE AWARE. NNO NOTED. WILL CONT TO MONITOR.
[2019-08-06] VITALS (23 sets, daily range): BP systolic 99–126; BP diastolic 61–81
[2019-08-06] MEDS: GUAIFENESIN 300 MG/15 ML UDC PO PRN (00:35)
[2019-08-06] MEDS: ALBUTEROL HALF STRENGTH 1.25 MG/3 ML VIAL.NEB NEB SCH ×6 (03:27→22:40)
[2019-08-06] MEDS: IPRATROPIUM NEB FS 0.5 MG/2.5 ML AMPUL.NEB NEB SCH ×6 (03:28→22:39)
[2019-08-06 04:42] LABS: BASOPHILS # (AUTO) 0.2 /CMM (0.0-0.2); HEMATOCRIT 38 % (33-45); HEMOGLOBIN 12.1 g/dL (11.5-14.8); LYMPHOCYTES # (AUTO) 0.8 /CMM (0.8-4.8); LYMPHOCYTES % (AUTO) 10.2 % (20.0-44.0); MEAN CORPUSCULAR HGB CONC 32 g/dl (31.0-36.0); MEAN CORPUSCULAR VOLUME 82 fL (82-100); MONOCYTES # (AUTO) 0.7 /CMM (0.1-1.30); NEUTROPHILS % (AUTO) 78.8 % (43.0-81.0); PLATELET COUNT (AUTO) 214 /CMM (150-450); RED BLOOD CELL COUNT(AUTO) 4.64 MIL/uL (4.0-5.2); WHITE BLOOD COUNT (AUTO) 7.6 K/uL (4.3-11.0)
[2019-08-06 04:58] LABS: CALCIUM, SERUM 9.5 mg/dL (8.5-10.1); CREATININE 1.2 mg/dL (0.6-1.3); MAGNESIUM 2.1 mg/dL (1.8-2.4); PHOSPHORUS 3.3 mg/dL (2.5-4.9); POTASSIUM 4.4 mmol/L (3.5-5.1)
--- NOTE | 2019-08-06 07:13 | NUR ---
RN CLOSING NOTES PATIENT AWAKE, A/OX4, ON TELE MONITOR SR WITH HR 80'S. ON OXYGEN VIA NC 5L, SATURATING 94% AT THE MOMENT, RESPIRATIONS EVEN AND UNLABORED, NO SIGNS OF RESPIRATORY DISTRESS NOTED. BOUDREAUX CATHETER INTACT, PATENT, DRAINING WELL. LORENA PICC LINE FLUSHING AND PATENT, SITE C/D/I. KEPT PT CLEAN, DRY, AND COMFORTABLE. ALL MD ORDERS ATTENDED, ALL NEEDS ANTICIPATED. SAFETY MEASURES IN PLACE; CALL LIGHT WITHIN REACH, SR UP X2, HOB ELEVATED. BEDSIDE REPORT GIVEN TO ALICIA RAYMOND FOR NAZ.
[2019-08-06] MEDS: ACETYLCYSTEINE 10% SOLN 400 MG/4 ML VIAL NEB SCH ×3 (07:59→22:39)
[2019-08-06] MEDS: MUPIROCIN OINT 2% 22 GM TUBE SCH ×2 (08:33→20:15)
[2019-08-06] MEDS: MINERAL OIL/PETROLATUM,WHITE 120 GM JAR TP SCH (08:33)
[2019-08-06] MEDS: Z GUARD REMEDY 2 OZ OINT TP SCH (08:33)
[2019-08-06] MEDS: HYDROCORTISONE SOD SUCCINATE 100 MG/2 ML VIAL IV SCH ×3 (08:33→16:20)
[2019-08-06] MEDS: HYDROCODONE/APAP 5/325MG 1 EACH TABLET PO PRN ×2 (09:02→21:17)
--- NOTE | 2019-08-06 12:15 | NUR ---
MONOTYPE CASTER NOTES Received Patient awake and resting in bed transferred from ICU. A/O x 4. VS stable with no acute distress. Breathing even and unlabored on 5LPM via NC with no respiratory distress. Denies pain. No signs and symptoms of pain. Telemonitor in place and patent reading SR with HR-93. Valle Cath in place and patent with clear jack coloured urine. LORENA PICC clean, intact, patent and flushing well. Isolation precautions in place. Safety precautions in place. Bed locked and set to lowest position with side rails x 2 up. All needs rendered at this time. Call light within reach. Will continue to monitor.
[2019-08-06] MEDS: RIVAROXABAN 10 MG TABLET PO SCH (16:25)
--- NOTE | 2019-08-06 19:00 | NUR ---
crop or grain farmer opening notes Received Pt from morning nurse. Pt is alert and orientedX4. Pt is resting in bed comfortably. Respiration is normal in 5 L NC. No SOB. No S/S of distress noted. LORENA Piccline is clean, intact, patent and SL. Tele monitor showed SR HR at 88. Valle cath is intact, patent and draining brown color urine. Per Am nurse MD is aware. Contact precautions is maintained. safety precautions is maintained. Bed at low position, brakes locked, side railsupX3 and call light is within reach. Will continue to monitor.
--- NOTE | 2019-08-06 19:01 | NUR ---
WOOD TYPE CUTTER CLOSING NOTES Patient awake and resting in bed. A/O x 4. VS stable with no acute distress. Breathing even and unlabored on 5LPM via NC with no respiratory distress. Denies pain. No signs and symptoms of pain. Telemonitor in place and patent reading SR with HR-91. Valle Cath in place and patent with clear jack coloured urine. LORENA PICC clean, intact, patent and flushing well. Isolation precautions in place. Safety precautions in place. Bed locked and set to lowest position with side rails x 2 up. All needs rendered at this time. Call light within reach. Will endorse plan of care to oncoming shift.
--- NOTE | 2019-08-06 21:20 | NUR ---
it program auditor notes Pt is complaining of generalized pain and requesting norco. Administered norco 5-325 tab/1 tab/po as ordered for pain. VS is stable. Safety precautions is maintained. Will continue to monitor.
--- NOTE | 2019-08-06 22:40 | NUR ---
supervisor printing shop notes Pt refused to have C-Pap. Made aware risks and benefits. No SOB. No S/S of distress noted. Pt keep refusing. Will continue to monitor.
[2019-08-07] VITALS (8 sets, daily range): BP systolic 102–156; BP diastolic 52–103
[2019-08-07] MEDS: IPRATROPIUM NEB FS 0.5 MG/2.5 ML AMPUL.NEB NEB SCH ×6 (02:33→23:08)
[2019-08-07] MEDS: ALBUTEROL HALF STRENGTH 1.25 MG/3 ML VIAL.NEB NEB SCH ×6 (02:33→23:08)
[2019-08-07 06:20] LABS: BASOPHILS % (AUTO) 0.6 % (0.0-2.0); EOSINOPHILS % (AUTO) 0.1 % (0.0-6.0); HEMATOCRIT 40 % (33-45); HEMOGLOBIN 12.7 g/dL (11.5-14.8); LYMPHOCYTES # (AUTO) 1.1 /CMM (0.8-4.8); LYMPHOCYTES % (AUTO) 13.6 % (20.0-44.0); MEAN CORPUSCULAR HGB CONC 32 g/dl (31.0-36.0); MEAN CORPUSCULAR VOLUME 82 fL (82-100); MONOCYTES # (AUTO) 0.6 /CMM (0.1-1.30); MONOCYTES % (AUTO) 7.9 % (2.0-12.0); NEUTROPHILS # (AUTO) 6.3 /CMM (1.8-8.9); NEUTROPHILS % (AUTO) 77.8 % (43.0-81.0); PLATELET COUNT (AUTO) 221 /CMM (150-450); RED BLOOD CELL COUNT(AUTO) 4.91 MIL/uL (4.0-5.2); WHITE BLOOD COUNT (AUTO) 8.1 K/uL (4.3-11.0)
[2019-08-07 06:30] LABS: ALBUMIN 2.8 g/dL (3.4-5.0); BILIRUBIN,TOTAL 1.8 mg/dL (0.2-1.0); CALCIUM, SERUM 9.7 mg/dL (8.5-10.1); CREATININE 1.2 mg/dL (0.6-1.3); MAGNESIUM 2.1 mg/dL (1.8-2.4); PHOSPHORUS 3.7 mg/dL (2.5-4.9); POTASSIUM 4.2 mmol/L (3.5-5.1); TOTAL PROTEIN, SERUM 5.7 g/dL (6.4-8.2)
--- NOTE | 2019-08-07 06:54 | NUR ---
power plant operator closing notes Pt is alert and orientedX4. Pt is resting in bed comfortably. Respiration is normal in 4 L NC. No SOB. No S/S of distress noted. LORENA Piccline is clean, intact, patent and SL. Tele monitor showed SR HR at 88. Valle cath is intact, patent and draining brown color urine. Contact precautions is maintained. safety precautions is maintained. Bed at low position, brakes locked, side railsupX3 and call light is within reach. Will endorse to morning nurse for NAZ
[2019-08-07] MEDS: HYDROCODONE/APAP 5/325MG 1 EACH TABLET PO PRN ×3 (07:49→20:48)
--- NOTE | 2019-08-07 08:00 | NUR ---
SHEAR ASSEMBLER OPENING NOTES RECEIVED PT IN BED, AWAKE, ALERT AND ORIENTED X 3-4. NO CARDIAC OR RESPIRATORY DISTRESS NOTED. CO SOB NOTED. ON 45L OF O2 SATURATING WELL. COMPLAINED OF PAIN ON BLE. NORCO ADMINISTERED NEEDED. WILL REASSESS EFFECTIVITY OF PAIN MEDS. NO S/S OF DISTRESS NOTED. PICC LINE NOTED ON LORENA. INTACT AND PATENT. NO S/S OF INFECTION OR INFILTRATION NOTED. DRESSING IS INTACT. BOUDREAUX CATHETER IN PLACE. DRAINING WITH URINE. BOUDREAUX INTACT AND PATENT. PT CONTINUES TO BE ON CONTACT ISOLATION. SAFETY PRECAUTIONS IN PLACE. BED IS LOCKED AND IN LOW POSITION. SIDE RAILS UP X2. CALL LIGHT WITHIN REACH. WILL CONTINUE TO MONITOR.
[2019-08-07] MEDS: ACETYLCYSTEINE 10% SOLN 400 MG/4 ML VIAL NEB SCH ×3 (08:25→23:08)
[2019-08-07] MEDS: HYDROCORTISONE SOD SUCCINATE 100 MG/2 ML VIAL IV SCH ×3 (08:39→16:29)
--- NOTE | 2019-08-07 08:45 | NUR ---
SEEN BY DR CAMPOVERDE TODAY WITH ORDERS TO D/C TELE. ORDERS NOTED AND CARRIED OUT.
[2019-08-07] MEDS: MUPIROCIN OINT 2% 22 GM TUBE SCH ×2 (08:46→20:50)
[2019-08-07] MEDS: Z GUARD REMEDY 2 OZ OINT TP SCH (08:46)
[2019-08-07] MEDS: MINERAL OIL/PETROLATUM,WHITE 120 GM JAR TP SCH (08:46)
[2019-08-07 09:18] LABS: BAND % (MANUAL) 3 % (0.0-5.0); LYMPHOCYTES % (MANUAL) 19 % (16-48); MONOCYTES % (MANUAL) 9 % (0-11.0); NEUTROPHILS % (MANUAL) 69 (42-76)
[2019-08-07] MEDS: RIVAROXABAN 10 MG TABLET PO SCH (16:30)
--- NOTE | 2019-08-07 17:45 | NUR ---
FILTER CHANGER CLOSING NOTES PT IN BED, AWAKE, ALERT AND ORIENTED X 3-4. EATING HER DINNER. NO CARDIAC OR RESPIRATORY DISTRESS NOTED. CO SOB NOTED. ON 4L OF O2 SATURATING WELL. NO COMPLAINTS OF PAIN OR DISCOMFORT AT THIS TIME. NO S/S OF DISTRESS NOTED. PICC LINE NOTED ON LORENA. INTACT AND PATENT. NO S/S OF INFECTION OR INFILTRATION NOTED. DRESSING IS INTACT. BOUDREAUX CATHETER IN PLACE. DRAINING WITH URINE. BOUDREAUX INTACT AND PATENT. PT CONTINUES TO BE ON CONTACT ISOLATION. SAFETY PRECAUTIONS IN PLACE. BED IS LOCKED AND IN LOW POSITION. SIDE RAILS UP X2. CALL LIGHT WITHIN REACH. WILL CONTINUE TO MONITOR.
--- NOTE | 2019-08-07 20:10 | NUR ---
event marketing intern: received report from ric cleveland at 1915. pt isolation mrsa nares, ppe utilized. pt in bed, awake, a/o x3 on 3l oxygen via nc respirations even and unlabored. noted weak non productive cough. pt use bipap at night. pt has left upper picc line double lumen, both port/lumen patent and flushing well, with good blood return noted, both placed on hl. dressing c/d/i. noted ble edema, ble offloaded on pillows. received with edgar catheter in placed, noted tea colored concentrated urine. md aware. discussed plan of care to pt. safety precautions for fall initiated , call light in reach, will continue monitoring pt.
--- NOTE | 2019-08-07 20:50 | NUR ---
PRN NORCO: PT C/O BILATERAL LEG PAIN , REQUESTING FOR PAIN MEDICATION. PRN NORCO 5/325 MG TAB PO ADMINISTERED TO PT AT THIS TIME. ALSO CHECK VS PRIOR TO ADMINISTERING MEDICATION. WILL CONTINUE TO MONITOR AND REASSESS.
--- NOTE | 2019-08-07 23:12 | NUR ---
rn notes/refusal for bipap: approached by rt lewis, pt refusing for bipap, stated she doesnt want to use tonight. pt currently on breathing treatment. education provided to pt regarding med compliance. pt a/ox3, remains to refuse bipap.
[2019-08-08] MEDS: ALBUTEROL HALF STRENGTH 1.25 MG/3 ML VIAL.NEB NEB SCH ×4 (02:59→15:52)
[2019-08-08] MEDS: IPRATROPIUM NEB FS 0.5 MG/2.5 ML AMPUL.NEB NEB SCH ×4 (02:59→15:52)
--- NOTE | 2019-08-08 06:55 | NUR ---
end of shift report: pt remains on 3l oxygen via nc, denies any sob, remains a/o x3. refused bipap last night. patricia picc line remains intact and patent, flushes easily with 10cc of ns without meeting any resistance, brisk blood return noted, dressing c/d/i. prn norco administered for c/o leg pain. breathing treatment given by rt s scheduled. ble kept offloaded on pillows. pt cleared by wes gallardo, for dc planning, referral for [facility]. awaiting for acceptance. refused bed bath. vs remains stable, needs attended. safety precautions for fall remains engaged, call light in reach, will endorse to day rn for continuity of care.
[2019-08-08 08:00] VITALS: BP 122/46
[2019-08-08] MEDS: ACETYLCYSTEINE 10% SOLN 400 MG/4 ML VIAL NEB SCH ×2 (08:27→15:52)
[2019-08-08] MEDS: HYDROCORTISONE SOD SUCCINATE 100 MG/2 ML VIAL IV SCH (09:48)
[2019-08-08] MEDS: MUPIROCIN OINT 2% 22 GM TUBE SCH (09:51)
[2019-08-08] MEDS: Z GUARD REMEDY 2 OZ OINT TP SCH (09:52)
[2019-08-08] MEDS: MINERAL OIL/PETROLATUM,WHITE 120 GM JAR TP SCH (09:52)
[2019-08-08] MEDS ORDERED: PRED50TA PO (11:07)
[2019-08-08 16:00] VITALS: BP 138/82
--- NOTE | 2019-08-08 17:01 | NUR ---
Nurse Notes: patient is discharge back to [facility], [facility], report is being given to Jhon Davis [id number] . Phone number called, was [phone], patient is having respiratory therapy, edgar to be removed. left upper arm picc-line. No complaints of tubbs.
--- NOTE | 2019-08-08 17:10 | NUR ---
SNF wants the picc-line kept in place, just if medications are needed. edgar will be removed.
[2019-08-08] MEDS: RIVAROXABAN 10 MG TABLET PO SCH (18:20)
--- NOTE | 2019-08-08 18:38 | NUR ---
Discharge Notes: patient is ambulance to , nurse assisted ambulance personnel to placepatient in [facility] safely. picc line left in, per [facility], SNF will use picc line if patient is hard to stick.Ally Valle was removed. emptied 300 cc dark bloody urine. Addendum: 08/08/19 at 1842 by CHAPARRO MADDOX RN report given to Pancho with [facility] ambulance.
== END 2019-08-08 19:50 | DRG 871 ==
LOC: ER 12:32 → ICU 13:46 → MED 08-06 11:59 → TELE 08-06 19:00 → MED 08-07 08:49
PROVIDERS: ADMIT Internal Medicine; ATTEND Internal Medicine
PROC: 05HC33Z Insertion of Infusion Device into Left Basilic Vein, Percutaneous Approach (ICD-10-PCS; principal; 2019-08-01)
PROC: B548ZZA Ultrasonography of Superior Vena Cava, Guidance (ICD-10-PCS; principal; 2019-08-01)
PROC: 02HV33Z Insertion of Infusion Device into Superior Vena Cava, Percutaneous Approach (ICD-10-PCS; principal; 2019-08-01)
PROC: 5A09357 Assistance with Respiratory Ventilation, Less than 24 Consecutive Hours, Continuous Positive Airway Pressure (ICD-10-PCS; principal; 2019-08-01)
DX: A41.9 Sepsis, unspecified organism (principal); I21.A1 Myocardial infarction type 2; E43 Unspecified severe protein-calorie malnutrition; I50.33 Acute on chronic diastolic (congestive) heart failure; J96.21 Acute and chronic respiratory failure with hypoxia; N17.0 Acute kidney failure with tubular necrosis; G92 Toxic encephalopathy; J44.1 Chronic obstructive pulmonary disease with (acute) exacerbation; I13.0 Hypertensive heart and chronic kidney disease with heart failure and stage 1 through stage 4 chronic kidney disease, or unspecified chronic kidney disease; E27.40 Unspecified adrenocortical insufficiency; E87.1 Hypo-osmolality and hyponatremia; E87.0 Hyperosmolality and hypernatremia; I69.354 Hemiplegia and hemiparesis following cerebral infarction affecting left non-dominant side; I82.453 Acute embolism and thrombosis of peroneal vein, bilateral; I82.433 Acute embolism and thrombosis of popliteal vein, bilateral; N18.9 Chronic kidney disease, unspecified; G89.29 Other chronic pain; M79.7 Fibromyalgia; M54.30 Sciatica, unspecified side; Z88.2 Allergy status to sulfonamides; Z88.8 Allergy status to other drugs, medicaments and biological substances; Z88.1 Allergy status to other antibiotic agents; Z88.5 Allergy status to narcotic agent; Z91.013 Allergy to seafood; Z79.51 Long term (current) use of inhaled steroids; Z79.82 Long term (current) use of aspirin; Z79.899 Other long term (current) drug therapy; E78.5 Hyperlipidemia, unspecified; E03.9 Hypothyroidism, unspecified; E86.0 Dehydration; E87.6 Hypokalemia; F03.90 Unspecified dementia, unspecified severity, without behavioral disturbance, psychotic disturbance, mood disturbance, and anxiety; F09 Unspecified mental disorder due to known physiological condition; Z86.718 Personal history of other venous thrombosis and embolism; Z87.442 Personal history of urinary calculi
CPT/HCPCS: 31720; 36410; 36415; 36600; 71045-TC; 80048-TC; 80053-TC; 80076-TC; 81000-TC; 82533; 82550-TC; 82570-TC; 82803-TC; 83605-TC; 83735-TC; 83880; 83970; 84100-TC; 84155; 84155-TC; 84165; 84300-TC; 84484-TC; 85025-TC; 87081-TC; 87086-TC; 92526; 92611-TC; 93970-TC; 94760-TC; 94799-TC; 99082-TC; A4216; C1751; C1769; G0378; J1650; J1720; J2543; J2930; J3370; J3480; J3490; J7042; J7050; J7060; J7070

== ENCOUNTER 2019-08-21 21:04 | Inpatient (IN) | payer OTHER ==
[~2019-08-21] VITALS: Ht 152.4 cm; Wt 111.1 kg
[~2019-08-21 21:04] MED LIST changes: +ACET-2605 PO; -ALBU1.25 NEB; +ALBU1.257 IH; -ALBU8.5H8 INH; +BUDE10.22 IH; -CHLO473M2 MM; +CHLO473M5 MM; +FOLI0.4T2 PO; +FURO-144 PO; -FURO40TA5 PO; -Folic Acid PO; +HYDR-4384 PO; +IPRA0.2S9 IH; -IPRA0.2S9 NEB; -PRED20TA PO; +PRED50TA PO; +SENN-168 PO
--- NOTE | 2019-08-21 21:09 | NUR ---
CALLED RT FOR BIPAP PER MD
--- NOTE | 2019-08-21 21:10 | NUR ---
ON BIPAP SETTIN/5 RATE OF 18, O2 40
--- NOTE | 2019-08-21 21:23 | NUR ---
LABS COLLECTED AND IV INITTIATED LF 20G
--- NOTE | 2019-08-21 21:30 | NUR ---
[id number]. C/O SOB. PER RA PT DESAT IN 70% IN FACILITY. CRACKLES. GIVEN 4 SPRAYS OF NITRO ON ROUTE. PT PLACED ON BIPAP PER MD. VSS. AWAITING MD FOR EVAL AND ORDERS.
--- NOTE | 2019-08-21 21:33 | NUR ---
PER RA, PT HAS HX OF CHF.
--- NOTE | 2019-08-21 21:37 | NUR ---
RT NOTE Late Entry: Pt rec'd on nrb mask 15LPM. Pt disoriented and lethargic. Pt placed on bipap per md orders. Alarms are set and audible. Ambu bag bedside. Bipap plugged into red outlet. Abg to be taken in one hour per md orders. Will continue to monitor. Addendum: 08/21/19 at 2224 by JONATHAN DELGADO RT Amended: Links added.
[2019-08-21 21:55] LABS: BASOPHILS # (AUTO) 0.1 /CMM (0.0-0.2); BASOPHILS % (AUTO) 0.7 % (0.0-2.0); EOSINOPHILS % (AUTO) 0.1 % (0.0-6.0); LYMPHOCYTES # (AUTO) 0.5 /CMM (0.8-4.8); LYMPHOCYTES % (AUTO) 5.1 % (20.0-44.0); MEAN CORPUSCULAR HGB CONC 31 g/dl (31.0-36.0); MEAN CORPUSCULAR VOLUME 86 fL (82-100); MONOCYTES # (AUTO) 0.3 /CMM (0.1-1.30); MONOCYTES % (AUTO) 2.5 % (2.0-12.0); NEUTROPHILS # (AUTO) 9.8 /CMM (1.8-8.9); NEUTROPHILS % (AUTO) 91.6 % (43.0-81.0); PLATELET COUNT (AUTO) 178 /CMM (150-450); WHITE BLOOD COUNT (AUTO) 10.7 K/uL (4.3-11.0)
[2019-08-21 22:06] LABS: CREATININE 1.2 mg/dL (0.6-1.3); POTASSIUM 4.2 mmol/L (3.5-5.1)
[2019-08-21 22:12] LABS: BILIRUBIN,DIRECT 0.5 mg/dL (0.0-0.2); BILIRUBIN,TOTAL 1.2 mg/dL (0.2-1.0); HEMATOCRIT 42 % (33-45); HEMOGLOBIN 12.8 g/dL (11.5-14.8); TOTAL PROTEIN, SERUM 6.3 g/dL (6.4-8.2)
[2019-08-21 22:36] LABS: LYMPHOCYTES % (MANUAL) 3 % (16-48); MONOCYTES % (MANUAL) 1 % (0-11.0); NEUTROPHILS % (MANUAL) 96 (42-76)
--- NOTE | 2019-08-21 23:23 | NUR ---
URINE COLLECTED AND SENT TO LAB
--- NOTE | 2019-08-21 23:28 | NUR ---
ER DOC ON PHONE WITH LOVELY
--- NOTE | 2019-08-21 23:35 | NUR ---
PT TAKEN OFF BIPAP
[2019-08-21 23:43] LABS: APPEARANCE,URINE Slightly Cloudy (CLEAR); BILIRUBIN,URINE Negative (NEGATIVE); BLOOD, URINE Large Ery/uL (NEGATIVE); COLOR,URINE Yellow (YELLOW); KETONES,URINE Negative (NEGATIVE); LEUKOCYTE ESTERASE ,URINE Small (NEGATIVE); NITRITE, URINE Negative (NEGATIVE); PROTEIN,URINE 100 mg/dl (NEGATIVE); UGLUCOSE Negative (NEGATIVE)
[2019-08-22] VITALS (29 sets, daily range): BP systolic 78–168; BP diastolic 43–110
[2019-08-22 00:04] LABS: ABG BASE EXCESS 0.9 mmol/L; ABG OXYGEN SATURATION 91.5 % (92.0-98.5); ABG PCO2 46.9 mmHg (35.0-45.0); ABG PH 7.372 (7.350-7.450); ABG PO2 65.9 mmHg (75.0-100.0); AaDO2 237.8 mmHg; COHb 0.7 % (0.5-1.5); MetHb 0.3 % (0.0-1.5); O2Hb 90.6 % (94.0-97.0); SITE, ABG Right Radial; VENT MODE, BG Bipap 15/5 RR18 50%
[2019-08-22 00:12] LABS: BACTERIA,URINE Moderate /HPF (None Seen); RBC,URINE 21-50 /HPF (0-2); SQUAMOUS EPITHELIAL CELL,UR Moderate /HPF (None Seen); WBC,URINE 21-50 /HPF (0-3)
--- NOTE | 2019-08-22 00:49 | NUR ---
ON BIPAP IPAP 15 EPAP 5 R 18 02 50
[2019-08-22] MEDS ORDERED: ZOLPIDEM TARTRATE 5 MG TABLET PO PRN (01:00)
[2019-08-22] MEDS ORDERED: ACETAMINOPHEN 325 MG TABLET PO PRN (01:00)
[2019-08-22] MEDS ORDERED: ONDANSETRON HCL/PF 4 MG/2 ML VIAL IVP PRN (01:00)
[2019-08-22] MEDS ORDERED: MAG HYDROX/AL HYDROX/SIMETH 30 ML UDC PO PRN (01:00)
[2019-08-22] MEDS ORDERED: Z GUARD REMEDY 2 OZ OINT TP PRN ×2 (01:00→01:30)
[2019-08-22] MEDS ORDERED: BUMETANIDE INJ 4 MG in IV NS 0.9% 24 ML IV ONE (01:00)
[2019-08-22] MEDS ORDERED: MAGNESIUM HYDROXIDE 30 ML UDC PO PRN (01:00)
--- NOTE | 2019-08-22 01:00 | NUR ---
REPORT GIVEN TO NAVEEN VARGAS FOR NAZ
[2019-08-22] MEDS ORDERED: ALBUTEROL HALF STRENGTH 1.25 MG/3 ML VIAL.NEB IH PRN (01:30)
[2019-08-22] MEDS ORDERED: BISACODYL SUPP (10 MG) 10 MG/SUPP.RECT SUPP.RECT RC PRN (01:30)
[2019-08-22] MEDS ORDERED: IPRATROPIUM NEB FS 0.5 MG/2.5 ML AMPUL.NEB IH PRN (01:30)
[2019-08-22] MEDS ORDERED: NA PHOS,M-B/NA PHOS,DI-BA 1 EA ENEMA RC PRN (01:30)
--- NOTE | 2019-08-22 01:38 | NUR ---
PT TRANSFERED PER ACLS PROTOCOL
--- NOTE | 2019-08-22 01:55 | NUR ---
FLAKE CUTTER OPERATOR NOTE RECEIVED PT FROM ER VIA [facility] FOR ADMISSION TO ICU. PT IS A/O X 1-2, NO DISTRESS OR DISCOMFORT NOTED. DENIES PAIN. PT WAS PUT ON BIPAP BY RT 15 RATE 18 O2 40%, TOLERATING IT WELL. ON TELE SR HR 92. F/C INTACT AND PATENT NOTE HEMATURIA. SKIN ASSESSMENT DONE. PICTURES TAKEN AND PLACE THEM IN THE CHART. SL IN LFA #20 G INTACT AND PATENT. REPOSITION HER FOR SKIN MANAGEMENT. SIDE RAILS UP X 3 AND CALL LIGHT WITHIN REACH. VSS. CONTINUE TO MONITOR HER.
--- NOTE | 2019-08-22 02:00 | NUR ---
PARKING CONTROL OFFICER NOTE ADMITTING DX IS RESP FAILURE AND ADMITTING DOCTORS IS DR. WILLIS. Addendum: 08/22/19 at 0257 by LENORE MIGUEL RN ADMITTING DR ALBERTINA LO.
[2019-08-22] MEDS ORDERED: BUMETANIDE INJ 0.25 MG/ML VIAL ONE (02:14)
--- NOTE | 2019-08-22 02:20 | NUR ---
NEW CAR GET READY MECHANIC NOTE CHARGE NURSE IVANNA STARTED BUMEX IV ORDERED BY .
--- NOTE | 2019-08-22 05:38 | NUR ---
CEMENT SIDE LASTER NOTE PT IN BED ASLEEP, NO DISTRESS OR DISCOMFORT NOTED. NO S/S OF PAIN NOTED. URINE OUTPUT NOTED 700 ML FOR THE SHIFT.
--- NOTE | 2019-08-22 05:55 | NUR ---
JUNIOR JAVA DEVELOPER NOTE NO HEMATURIA NOTED. URINE COLOR LIGHT YELLOW NOTED.
--- NOTE | 2019-08-22 06:46 | NUR ---
DENTAL SECRETARY NOTE NO CHANGE IN CONDITION. PT ON BIPAP TOLERATING IT WELL, NO DISTRESS OR DISCOMFORT NOTED. NO S/S OF PAIN NOTED. WILL ENDORSE TO DAY SHIFT NURSE FOR CONTINUE TO CARE.
[2019-08-22] MEDS: LEVOTHYROXINE SODIUM 88 MCG TABLET PO SCH ×2 (07:30→08:01)
--- NOTE | 2019-08-22 07:45 | NUR ---
RECEIVED BEDSIDE REPORT FROM [facility] SHIFT NURSE. PT ASLEEP IN BED, ON BIPAP, SINUS RHYTHM ON MONITOR, BOUDREAUX CATHETER INTACT, PATENT, DRAINING CLEAR YELLOW URINE. IV SITE ON LEFT FOREARM G20 INTACT, PATENT, WITH HEP LOCK IN PLACE. BED IN LOW POSITION, LOCKED, CALL LIGHT WITHIN REACH.
[2019-08-22] MEDS: FLUTICASONE PROPIONATE 16 GM BOTTLE NS SCH ×3 (08:04→16:17)
[2019-08-22 08:12] LABS: BASOPHILS % (AUTO) 0.3 % (0.0-2.0); EOSINOPHILS % (AUTO) 0.2 % (0.0-6.0); HEMATOCRIT 44 % (33-45); HEMOGLOBIN 13.3 g/dL (11.5-14.8); LYMPHOCYTES # (AUTO) 1.4 /CMM (0.8-4.8); LYMPHOCYTES % (AUTO) 9.3 % (20.0-44.0); MEAN CORPUSCULAR HGB CONC 30 g/dl (31.0-36.0); MEAN CORPUSCULAR VOLUME 86 fL (82-100); MONOCYTES # (AUTO) 0.9 /CMM (0.1-1.30); MONOCYTES % (AUTO) 5.9 % (2.0-12.0); NEUTROPHILS # (AUTO) 12.8 /CMM (1.8-8.9); NEUTROPHILS % (AUTO) 84.3 % (43.0-81.0); PLATELET COUNT (AUTO) 155 /CMM (150-450); RED BLOOD CELL COUNT(AUTO) 5.14 MIL/uL (4.0-5.2); WHITE BLOOD COUNT (AUTO) 15.2 K/uL (4.3-11.0)
[2019-08-22] MEDS: MULTIVIT W/MINERALS 1 TAB TABLET PO SCH ×2 (08:12→09:00)
[2019-08-22] MEDS: ASCORBIC ACID 500 MG TABLET PO SCH ×2 (08:12→09:00)
[2019-08-22] MEDS: methylPREDNISolone SOD SUCC 125 MG/2ML VIAL IV SCH ×3 (08:12→16:19)
[2019-08-22] MEDS: ASPIRIN EC 81 MG TABLET.DR PO SCH ×2 (08:12→09:00)
[2019-08-22] MEDS: PREGABALIN 100 MG CAPSULE PO SCH ×3 (08:12→16:17)
[2019-08-22 08:14] LABS: ALBUMIN 2.8 g/dL (3.4-5.0); BILIRUBIN,TOTAL 1.6 mg/dL (0.2-1.0); CREATININE 1.3 mg/dL (0.6-1.3); MAGNESIUM 2.3 mg/dL (1.8-2.4); PHOSPHORUS 3.9 mg/dL (2.5-4.9); POTASSIUM 4.5 mmol/L (3.5-5.1); TOTAL PROTEIN, SERUM 6.2 g/dL (6.4-8.2)
--- NOTE | 2019-08-22 08:24 | NUR ---
WOUND CARE CONSULT: PT PRESENTS WITH WEEPING EDEMA TO BILATERAL LOWER EXTREMITIES WITH REDNESS AND GENERALIZED EDEMA, SACRAL SCARRING, PRESENT ON ADMISSION. RECOMMEND DPM CONSULT. DR BERRIOS NOTIFIED OF CONSULT REQUEST. FIRST STEP LOW AIRLOSS MATTRESS ORDERED. RECOMMENDATIONS MADE FOR SKIN PROTECTION. DISCUSSED WITH NURSING STAFF. WILL SEE PRN. RUST IN AGREEMENT WITH PLAN OF CARE. Addendum: 08/22/19 at 0826 by JAYDEN CARRERA WNDNU Amended: Links added.
--- NOTE | 2019-08-22 08:30 | NUR ---
RT COLLECTED SPUTUM CX. CALLED LAB FOR WOOD EXPERIMENTAL MECHANIC
[2019-08-22] MEDS ORDERED: ENOXAPARIN SODIUM 30 MG/0.3 ML DISP.SYRIN SQ SCH (09:00)
[2019-08-22] MEDS ORDERED: predniSONE 50 MG TABLET PO SCH (09:00)
[2019-08-22] MEDS ORDERED: FLUTICASONE PROPIONATE 16 GM BOTTLE NS SCH (09:00)
[2019-08-22] MEDS: CEFTRIAXONE 1 G in IV D5W 50 ML IV SCH (09:19)
[2019-08-22] MEDS: IV NS 0.9% 1,000 ML IV SCH ×2 (09:21→21:39)
[2019-08-22 10:06] LABS: ABG BASE EXCESS 2.9 mmol/L; ABG OXYGEN SATURATION 82.4 % (92.0-98.5); ABG PCO2 36.9 mmHg (35.0-45.0); ABG PH 7.473 (7.350-7.450); AaDO2 197.8 mmHg; MetHb 0.2 % (0.0-1.5); O2Hb 81.4 % (94.0-97.0); SITE, ABG Left Radial; VENT MODE, BG BIPAP 20/5 PS 15
--- NOTE | 2019-08-22 10:10 | NUR ---
PER DR RED, NEW BIPAP SETTINGS 20/10 50%.
[2019-08-22] MEDS: ALBUTEROL HALF STRENGTH 1.25 MG/3 ML VIAL.NEB NEB SCH ×3 (10:19→20:02)
[2019-08-22] MEDS: IPRATROPIUM NEB FS 0.5 MG/2.5 ML AMPUL.NEB NEB SCH ×3 (10:19→20:02)
--- NOTE | 2019-08-22 10:37 | NUR ---
PT ON BIPAP, HELD ALL PO MEDICATIONS.
--- NOTE | 2019-08-22 11:29 | NUR ---
RECEIVED CALL FROM [facility] WITH CRITICAL RESULTS: BILATERAL LOWER EXTREMITY DVT. SPOKE WITH DARIAN. DR. LO NOTIFIED
[2019-08-22] MEDS ORDERED: ENOXAPARIN SODIUM 80 MG/0.8 ML DISP.SYRIN SQ ONE (12:00)
--- NOTE | 2019-08-22 14:00 | NUR ---
HOSPICE NURSE CAME BYOZZIE FROM [facility]. CONTACT NUMBER: [phone]
--- NOTE | 2019-08-22 18:00 | NUR ---
PT WOKE UP, ALERT AND ORIENTED X 2 (PERSON AND TIME). TAKING OFF BIPAP, REFUSING TO WEAR IT. EXPLAINED THE PURPOSE OF BIPAP AND IMPORTANCE OF WEARING IT, PT STILL REFUSED. PT PUT ON FACE MASK 10L/MIN, SATURATING WELL. WILL CONTINUE TO MONITOR.
--- NOTE | 2019-08-22 18:16 | NUR ---
RT END OF THE SHIFT REPORT, PT. 78 Y OLD FEMALE REC. @ 0700 AM NOT AWAKE BIPAP WITH NOTED SETTINGS, ALARMS ARE SET AND FUNCTIONAL, B/S RHONCHI BILATERALLY AND SUX'D FOR MOD. AMT YELLOW SECRETIONS FOR SPUTUM SAMPLING. @[address] RED ORDER (IPAP/EPAP 20/5 ) @1010 POST ABG RESULTS BIPAP CHANGES PER DR. RED , ( IPAP/EPAP 20/10, FIO2 50% ) EQUAL CHEST RISE NOTED. BIPAP PLUGGED INTO RED OUT LET. AMBU BAG AT THE BEDSIDE. @1800 PT. WAKE UP AND PULLING THE BIPAP MASK OFF AND REFUSING. RN AT THE BEDSIDE, PT. EVALUATED, PLACED ON 10L/MIN SIMPLE MASK AND CONTINUE TO MONITOR. REPORT WILL BE TURNER TO PM SHIFT. Addendum: 08/22/19 at 1821 by LOBO LÓPEZ RT Amended: Links added.
--- NOTE | 2019-08-22 18:30 | NUR ---
PT PLACED BACK ON BIPAP
--- NOTE | 2019-08-22 18:30 | NUR ---
RN CALLED X2 RTT AT THE BEDSIDE. PT. PLACED BACK ON BIPAP NO DISTRESS NOTED. Addendum: 08/22/19 at 1835 by LOBO LÓPEZ RT Amended: Links added.
--- NOTE | 2019-08-22 19:45 | NUR ---
ICU/CERTIFIED TOWER CLIMBER RECEIVED REPORT FROM DAY NURSE. SEE NURSING FLOWSHEET FOR ASSESSMENT. THERE ARE MANY SKIN ISSUES THAT IS ADDRESSED ON THE FLOWSHEET ALONG WITH THE INTERVENTIONS TO EACH. PT IS CURRENTLY ON BIPAP, TOLERATING CURRENT SETTINGS WITH SATURATION AT 100%. NO ACUTE DISTRESS SEEN AT THIS TIME, PT REQUIRES ASST TO TURN AND REPOSITION SELF FOR COMFORT AND CARE, WILL CONTINUE TO MONITOR THIS PT. CALL LIGHT WITHIN REACH.
[2019-08-22] MEDS: SENNOSIDES 8.6 MG TABLET PO SCH (21:39)
[2019-08-22] MEDS: FAMOTIDINE (20 MG) 20 MG TABLET PO SCH (21:39)
[2019-08-22] MEDS ORDERED: ATORVASTATIN 40 MG TABLET PO SCH (22:00)
[2019-08-22] MEDS ORDERED: FAMOTIDINE 40 MG TABLET PO SCH (22:00)
--- NOTE | 2019-08-22 22:25 | NUR ---
ICU/INTERNAL SALES ENGINEER PT WAS GIVEN PM CARE BATH, ALONG WITH ORAL CARE. PT TOLERATED THIS WELL AND REMAINS ON CURRENT BIPAP SETTINGS WITH SATURATION AT 100%. PT WAS TURNED AND REPOSITIONED FOR COMFORT AND CARE. WILL CONTINUE TO MONITOR THIS PT FOR ANY ACUTE RESPIRATORY DISTRESS.
[2019-08-23] VITALS (26 sets, daily range): BP systolic 81–124; BP diastolic 46–75
--- NOTE | 2019-08-23 00:15 | NUR ---
ICU/DIVISION CHIEF NO ACUTE RESPIRATORY DISTRESS SEEN AT THIS TIME, WITH SATURATION AT 100% WHILE ON CURRENT BIPAP SETTINGS. PT APPEARS TO BE RESTING COMFORTABLE. CALL LIGHT WITHIN REACH. WILL CONTINUE TO MONITOR THIS PT FOR ANY SUDDEN CHANGES. AT THIS TIME LOWER EXTREMITIES XEROFORM WAS APPLIED TO THE LOWER EXTREMITIES. PT TOLERATED THIS WELL.
[2019-08-23] MEDS: IPRATROPIUM NEB FS 0.5 MG/2.5 ML AMPUL.NEB NEB SCH ×4 (00:48→19:38)
[2019-08-23] MEDS: ALBUTEROL HALF STRENGTH 1.25 MG/3 ML VIAL.NEB NEB SCH ×4 (00:48→19:38)
--- NOTE | 2019-08-23 02:05 | NUR ---
ICU/TURF AND GROUNDS SUPERVISOR NO ACUTE RESPIRATORY DISTRESS SEEN AT THIS TIME, WITH SATURATION AT 100% WHILE ON CURRENT BIPAP SETTINGS. PT APPEARS TO BE RESTING COMFORTABLE. CALL LIGHT WITHIN REACH. WILL CONTINUE TO MONITOR THIS PT FOR ANY SUDDEN CHANGES.
--- NOTE | 2019-08-23 04:20 | NUR ---
ICU/ASSISTANT COMMUNITY DIRECTOR AM LABS WERE DRAWN, AWAIT FOR ANY CRITICAL LAB VALUES.
[2019-08-23 04:43] LABS: BASOPHILS % (AUTO) 0.1 % (0.0-2.0); EOSINOPHILS % (AUTO) 0.1 % (0.0-6.0); HEMATOCRIT 40 % (33-45); HEMOGLOBIN 12.3 g/dL (11.5-14.8); LYMPHOCYTES # (AUTO) 0.5 /CMM (0.8-4.8); LYMPHOCYTES % (AUTO) 6.7 % (20.0-44.0); MEAN CORPUSCULAR HGB CONC 31 g/dl (31.0-36.0); MEAN CORPUSCULAR VOLUME 86 fL (82-100); MONOCYTES # (AUTO) 0.2 /CMM (0.1-1.30); MONOCYTES % (AUTO) 2.9 % (2.0-12.0); NEUTROPHILS # (AUTO) 7.4 /CMM (1.8-8.9); NEUTROPHILS % (AUTO) 90.2 % (43.0-81.0); PLATELET COUNT (AUTO) 139 /CMM (150-450); RED BLOOD CELL COUNT(AUTO) 4.64 MIL/uL (4.0-5.2); WHITE BLOOD COUNT (AUTO) 8.2 K/uL (4.3-11.0)
[2019-08-23 04:56] LABS: CALCIUM, SERUM 9.2 mg/dL (8.5-10.1); CREATININE 1.2 mg/dL (0.6-1.3); MAGNESIUM 2.3 mg/dL (1.8-2.4); POTASSIUM 3.8 mmol/L (3.5-5.1)
[2019-08-23 05:28] LABS: THYROID STIMULATING HORMONE 0.438 uIU/mL (0.358-3.74)
--- NOTE | 2019-08-23 07:30 | NUR ---
ICU/RN: Pt received restless and agitated, wants to remove bipap mask. Educated pt on POC, agrees to keep mask on longer.
[2019-08-23] MEDS: MULTIVIT W/MINERALS 1 TAB TABLET PO SCH (08:50)
[2019-08-23] MEDS: ASCORBIC ACID 500 MG TABLET PO SCH (08:50)
[2019-08-23] MEDS: ASPIRIN EC 81 MG TABLET.DR PO SCH (08:50)
[2019-08-23] MEDS: methylPREDNISolone SOD SUCC 125 MG/2ML VIAL IV SCH ×3 (08:50→17:12)
[2019-08-23] MEDS: CEFTRIAXONE 1 G in IV D5W 50 ML IV SCH (08:50)
[2019-08-23] MEDS: PREGABALIN 100 MG CAPSULE PO SCH ×2 (08:50→17:12)
[2019-08-23] MEDS: ENOXAPARIN SODIUM 100 MG/ML DISP.SYRIN SQ SCH (08:52)
[2019-08-23] MEDS: LEVOTHYROXINE SODIUM 88 MCG TABLET PO SCH (08:55)
--- NOTE | 2019-08-23 09:00 | NUR ---
ICU/RN: Dr Sal estrada; updated on pt status. Per MD, okay to titrate O2 off BiPAP mask and maintain O2 sat >92%.
[2019-08-23] MEDS: FLUTICASONE PROPIONATE 16 GM BOTTLE NS SCH ×2 (09:22→17:12)
[2019-08-23 09:49] LABS: ABG OXYGEN SATURATION 89.5 % (92.0-98.5); ABG PCO2 37.3 mmHg (35.0-45.0); ABG PH 7.428 (7.350-7.450); ABG PO2 57.4 mmHg (75.0-100.0); AaDO2 329.4 mmHg; COHb 0.5 % (0.5-1.5); MetHb 0.5 % (0.0-1.5); O2Hb 88.6 % (94.0-97.0); SITE, ABG Left Radial; VENT MODE, BG SM
[2019-08-23] MEDS: HYDROCODONE/APAP 5/325MG 1 EACH TABLET PO PRN (10:18)
--- NOTE | 2019-08-23 13:30 | NUR ---
ICU/RN: Pt's edgar catheter flushed and irrigated; clot noted on irrigation. Minimal urine output noted.
[2019-08-23] MEDS: IV NS 0.9% 1,000 ML IV PRN (13:54)
--- NOTE | 2019-08-23 16:30 | NUR ---
ICU/RN: Pt remains with <150 cc urine output throughout shift; Dr Santana notified.
--- NOTE | 2019-08-23 17:53 | NUR ---
RT END OF THE SHIFT REPORT, PT. 78 Y OLD FEMALE REC. @ 0700 ON BIPAP WITH NOTED SETTINGS, PT. REMAIN AWAKE AND RESPONSIVE. ALARMS ARE SET AND FUNCTIONAL, B/S DIM/RALES BILATERALLY AND PT. SUX'D FOR MOD. AMT YELLOW SECRETIONS, EQUAL CHEST RISE NOTED. @ 0800 AM PT PLACED ON 10 L/MIN SIMPLE MASK @ 1015 POST ABG RESULTS PT. PLACED ON HIGH FLOW OXYGEN VIA NASAL PER DR. RED ORDER FIO2 80% 55L/MIN ( FIO2 TO BE TITRATED ) HIGH FLOW PLUGGED INTO RED OUT LET. @ 1405 TRY TO TITRATED FIO2 PT. CAN NOT CE. AMBU BAG AT THE BEDSIDE. REPORT WILL BE TURNER TO PM SHIFT. Addendum: 08/23/19 at 1757 by LOBO LÓPEZ RT Amended: Links added.
--- NOTE | 2019-08-23 19:45 | NUR ---
ICU/RN OPENING NOTE RECEIVED PATIENT IN BED WITH HIGH FLOW OXYGEN WITH FIO2 OF 80% AND A FLOW RATE OF 55L SATURATING AT 94%. PATIENT SHOWING NO SIGN OF ANY SOB OR ANY DISTRESS. PATIENT IS A/O X3 WITH CONFUSION AT TIMES. IV ACCESS ON THE LFA #22 AND RT WRIST #20 WITH NS RUNNING AT 70ML/HR. PATIENT ON THE MONITOR SHOWING SINUS TACHY WITH HR AT 107. VITALS ARE STABLE. PATIENT IS RESTING COMFORTABLY IN BED. WILL CONTINUE TO MONITOR PATIENT THROUGHOUT SHIFT.
[2019-08-23] MEDS: SENNOSIDES 8.6 MG TABLET PO SCH (22:20)
[2019-08-23] MEDS: FAMOTIDINE (20 MG) 20 MG TABLET PO SCH (22:20)
[2019-08-24] VITALS (24 sets, daily range): BP systolic 92–141; BP diastolic 58–116
[2019-08-24] MEDS: ALBUTEROL HALF STRENGTH 1.25 MG/3 ML VIAL.NEB NEB SCH ×4 (01:49→19:39)
[2019-08-24] MEDS: IPRATROPIUM NEB FS 0.5 MG/2.5 ML AMPUL.NEB NEB SCH ×4 (01:49→19:39)
[2019-08-24 04:50] LABS: HEMATOCRIT 39 % (33-45); HEMOGLOBIN 12.4 g/dL (11.5-14.8); LYMPHOCYTES # (AUTO) 0.7 /CMM (0.8-4.8); LYMPHOCYTES % (AUTO) 7.6 % (20.0-44.0); MEAN CORPUSCULAR HGB CONC 32 g/dl (31.0-36.0); MEAN CORPUSCULAR VOLUME 83 fL (82-100); MONOCYTES # (AUTO) 2.5 /CMM (0.1-1.30); MONOCYTES % (AUTO) 29.3 % (2.0-12.0); NEUTROPHILS # (AUTO) 5.4 /CMM (1.8-8.9); NEUTROPHILS % (AUTO) 63.1 % (43.0-81.0); PLATELET COUNT (AUTO) 163 /CMM (150-450); RED BLOOD CELL COUNT(AUTO) 4.66 MIL/uL (4.0-5.2); WHITE BLOOD COUNT (AUTO) 8.6 K/uL (4.3-11.0)
[2019-08-24 05:21] LABS: ALANINE AMINOTRANSFERASE 26 U/L (12-78); ALBUMIN 2.6 g/dL (3.4-5.0); ALKALINE PHOSPHATASE 139 U/L (46-116); ASPARTATE AMINOTRANSFERASE 22 U/L (15-37); BILIRUBIN,TOTAL 0.8 mg/dL (0.2-1.0); CALCIUM, SERUM 9.1 mg/dL (8.5-10.1); CARBON DIOXIDE 27 mmol/L (21-32); CHLORIDE 113 mmol/L (98-107); CREATININE 1.4 mg/dL (0.6-1.3); GLUCOSE 145 mg/dL (74-106); MAGNESIUM 2.3 mg/dL (1.8-2.4); PHOSPHORUS 3.4 mg/dL (2.5-4.9); POTASSIUM 3.6 mmol/L (3.5-5.1); SODIUM SERUM 149 mmol/L (136-145); TOTAL PROTEIN, SERUM 5.8 g/dL (6.4-8.2); UREA NITROGEN, BLOOD 47 mg/dL (7-18)
[2019-08-24] MEDS: IV NS 0.9% 1,000 ML IV PRN ×2 (05:26→21:25)
[2019-08-24 06:43] LABS: LYMPHOCYTES % (MANUAL) 3 % (16-48); MONOCYTES % (MANUAL) 2 % (0-11.0); NEUTROPHILS % (MANUAL) 95 (42-76)
--- NOTE | 2019-08-24 07:08 | NUR ---
ICU/RN CLOSING NOTE PATIENT IN BED WITH NO SIGN OF ANY DISTRESS. PATIENT CONTINUOS ON HIGH FLOW O2 AT 55L WITH 80% FI02 SATURATING AT 94%. IV ACCESS ON THE RIGHT WRIST WITH NS AT 70CC/HR. L VITALS STABLE WITH MONITOR AT BEDSIDE. PATIENT IS SINUS TACHY WITH HR IN 100'S. NO SIGN OF ANY DISTRESS. ENDORSED PATIENT TO MORNING SHIFT NURSE FOR NAZ.
--- NOTE | 2019-08-24 07:40 | NUR ---
ICU/RN PT IS SITTING ON THE BED .ON HIGH FLOW 02-85%.SAT O2-90-94%.V/S STABLE ,AFEBRILE NO PAIN REPORTED AT THIS TIME.PT HAS SOB.SAT O2 DECREASED WITH MINIMAL MOVEMENTS .AWAKE ,ALERT.IV INFUSING ORDERED.F/C IN PLACE DRAINING WITH MINIMAL AMOUNT OF URINE.PT IS OBESE.HAS WOUND ON BLE AND EXCORIATION ON THE SACRUM.
[2019-08-24] MEDS: PREGABALIN 100 MG CAPSULE PO SCH ×2 (08:29→16:54)
[2019-08-24] MEDS: MULTIVIT W/MINERALS 1 TAB TABLET PO SCH (08:29)
[2019-08-24] MEDS: methylPREDNISolone SOD SUCC 125 MG/2ML VIAL IV SCH ×3 (08:29→16:54)
[2019-08-24] MEDS: ASPIRIN EC 81 MG TABLET.DR PO SCH (08:29)
[2019-08-24] MEDS: LEVOTHYROXINE SODIUM 88 MCG TABLET PO SCH (08:29)
[2019-08-24] MEDS: ASCORBIC ACID 500 MG TABLET PO SCH (08:29)
[2019-08-24] MEDS: ENOXAPARIN SODIUM 100 MG/ML DISP.SYRIN SQ SCH (08:30)
[2019-08-24] MEDS: CEFTRIAXONE 1 G in IV D5W 50 ML IV SCH (08:35)
[2019-08-24] MEDS: FLUTICASONE PROPIONATE 16 GM BOTTLE NS SCH ×2 (08:35→16:54)
[2019-08-24 09:13] LABS: ABG BASE EXCESS -2.3 mmol/L; ABG OXYGEN SATURATION 93.6 % (92.0-98.5); ABG PCO2 39.4 mmHg (35.0-45.0); ABG PH 7.377 (7.350-7.450); ABG PO2 74.3 mmHg (75.0-100.0); AaDO2 454.7 mmHg; COHb 0.8 % (0.5-1.5); MetHb 0.2 % (0.0-1.5); O2Hb 92.7 % (94.0-97.0); SITE, ABG Right Brachial; VENT MODE, BG high flow 80%/ 55 flow
--- NOTE | 2019-08-24 19:30 | NUR ---
HELICOPTER DISPATCHER RCD PT W/DX RESP FAIL; PT IS FULL CODE. PT A/0 ABLE TO FOLLOW COMMANDS. ST ON MONITOR. HIFLOW 55 L 80%. NS @ 70 ML/HR VIA RIGHT WRIST.
[2019-08-24] MEDS: SENNOSIDES 8.6 MG TABLET PO SCH (22:03)
[2019-08-24] MEDS: FAMOTIDINE (20 MG) 20 MG TABLET PO SCH (22:03)
[2019-08-25] VITALS (24 sets, daily range): BP systolic 99–146; BP diastolic 47–100
[2019-08-25] MEDS: ALBUTEROL HALF STRENGTH 1.25 MG/3 ML VIAL.NEB NEB SCH ×4 (01:07→19:53)
[2019-08-25] MEDS: IPRATROPIUM NEB FS 0.5 MG/2.5 ML AMPUL.NEB NEB SCH ×4 (01:07→19:53)
--- NOTE | 2019-08-25 07:30 | NUR ---
RN NOTES RECEIVED PATIENT IN BED, ON SITTING POSITION. PATIENT RESPONDS APPROPRIATELY, ORIENTED X2-3. CATCHES BREATH ON SPEAKING. LABORED BREATHING NOTED, WITH USE OF ACCESSORY MUSCLE ON BREATHING, ON HIGH FLOW OXYGEN AT 880%FIO2 AT 55LPM. SATING 92% AT THIS TIME. SINUS TACHY ON THE MONITOR WITH HR ON THE 110s AT THIS TIME. NO COMPLAINTS OF PAIN. PATIENT ENCOURAGE TO VERBALIZE FEELING AND CONCERN, TO CALL FOR HELP AND ASSISTANCE. BOUDREAUX CATHETER IN PLACE, DRAINING TO YELLOW URINE. SAFETY MEASURES OBSERVED AND MAINTAINED. WILL CONTINUE TO MONITOR PATIENT ACCORDINGLY
[2019-08-25] MEDS: LEVOTHYROXINE SODIUM 88 MCG TABLET PO SCH (07:46)
[2019-08-25] MEDS: CEFTRIAXONE 1 G in IV D5W 50 ML IV SCH (08:16)
[2019-08-25] MEDS: FLUTICASONE PROPIONATE 16 GM BOTTLE NS SCH ×2 (08:16→16:52)
[2019-08-25] MEDS: PREGABALIN 100 MG CAPSULE PO SCH ×2 (08:17→16:52)
[2019-08-25] MEDS: ASCORBIC ACID 500 MG TABLET PO SCH (08:17)
[2019-08-25] MEDS: ASPIRIN EC 81 MG TABLET.DR PO SCH (08:17)
[2019-08-25] MEDS: methylPREDNISolone SOD SUCC 125 MG/2ML VIAL IV SCH ×3 (08:17→16:52)
[2019-08-25] MEDS: MULTIVIT W/MINERALS 1 TAB TABLET PO SCH (08:17)
[2019-08-25] MEDS: RIVAROXABAN 10 MG TABLET PO SCH (08:21)
[2019-08-25 14:29] LABS: LYMPHOCYTES # (AUTO) 0.4 /CMM (0.8-4.8); MEAN CORPUSCULAR HGB CONC 31 g/dl (31.0-36.0); MONOCYTES # (AUTO) 0.5 /CMM (0.1-1.30)
[2019-08-25 14:39] LABS: BASOPHILS % (AUTO) 0.4 % (0.0-2.0); LYMPHOCYTES % (AUTO) 5.1 % (20.0-44.0); MEAN CORPUSCULAR VOLUME 85 fL (82-100); MONOCYTES % (AUTO) 6.2 % (2.0-12.0); NEUTROPHILS # (AUTO) 7.5 /CMM (1.8-8.9); NEUTROPHILS % (AUTO) 88.3 % (43.0-81.0); PLATELET COUNT (AUTO) 138 /CMM (150-450); RED BLOOD CELL COUNT(AUTO) 4.87 MIL/uL (4.0-5.2); WHITE BLOOD COUNT (AUTO) 8.5 K/uL (4.3-11.0)
[2019-08-25 14:43] LABS: HEMOGLOBIN 12.7 g/dL (11.5-14.8)
[2019-08-25 14:44] LABS: HEMATOCRIT 41 % (33-45)
[2019-08-25 14:57] LABS: ALBUMIN 2.9 g/dL (3.4-5.0); BILIRUBIN,TOTAL 0.8 mg/dL (0.2-1.0); CALCIUM, SERUM 9.4 mg/dL (8.5-10.1); CREATININE 1.3 mg/dL (0.6-1.3); MAGNESIUM 2.5 mg/dL (1.8-2.4); PHOSPHORUS 2.9 mg/dL (2.5-4.9); POTASSIUM 3.9 mmol/L (3.5-5.1); TOTAL PROTEIN, SERUM 6.1 g/dL (6.4-8.2)
[2019-08-25] MEDS: IV NS 0.9% 1,000 ML IV PRN (19:11)
--- NOTE | 2019-08-25 19:19 | NUR ---
rn notes endorsed for continuity of care. no acute changes within the shift. still on high flow oxygen sating 92% at this time. no indication of pain noted. safety measures in place. call light within reach
--- NOTE | 2019-08-25 19:23 | NUR ---
WELT BUTTER HAND RCD PT W/DX RESP FAIL PT IS ALERT AND ORIENTED ABLE TO FOLLOW COMMANDS. ST ON MONITOR. ON HI FLOW 55 L 80%. BOUDREAUX CATH DRAINING SMALL AMOUNT OF SANIA COLORED URINE. XEROFORM ON BLE. NS @ 70 ML/HR VIA RIGHT WRIST 20.
--- NOTE | 2019-08-25 19:53 | NUR ---
RCVD PT ON HI FLOW 55L , 80% . PT IS AWAKE ,ALERT AND FOLLOW COMMANDS. Q6 BREATHING TX GIVEN , NO ADVERSE REACTION NOTED. AFTER TX DID NASOTRACHEAL SUCTIONING WITH A LARGE AMOUNT OF PALE YELLOW THICK SECRETIONS. ALICIA WRAY NOTIFIED. NO RESPIRATORY DISTRESS NOTED AT THIS TIME. WILL CONTINUE TO MONITOR PT T/O SHIFT.
[2019-08-25] MEDS: FAMOTIDINE (20 MG) 20 MG TABLET PO SCH (22:00)
[2019-08-25] MEDS: SENNOSIDES 8.6 MG TABLET PO SCH (22:00)
[2019-08-26] VITALS (21 sets, daily range): BP systolic 102–151; BP diastolic 52–98
[2019-08-26] MEDS: IPRATROPIUM NEB FS 0.5 MG/2.5 ML AMPUL.NEB NEB SCH ×4 (01:12→19:43)
[2019-08-26] MEDS: ALBUTEROL HALF STRENGTH 1.25 MG/3 ML VIAL.NEB NEB SCH ×4 (01:12→19:43)
[2019-08-26 05:41] LABS: BASOPHILS % (AUTO) 0.2 % (0.0-2.0); HEMATOCRIT 42 % (33-45); HEMOGLOBIN 12.9 g/dL (11.5-14.8); LYMPHOCYTES # (AUTO) 0.3 /CMM (0.8-4.8); LYMPHOCYTES % (AUTO) 4.3 % (20.0-44.0); MEAN CORPUSCULAR HGB CONC 31 g/dl (31.0-36.0); MEAN CORPUSCULAR VOLUME 85 fL (82-100); MONOCYTES # (AUTO) 0.2 /CMM (0.1-1.30); MONOCYTES % (AUTO) 3.8 % (2.0-12.0); NEUTROPHILS % (AUTO) 91.7 % (43.0-81.0); PLATELET COUNT (AUTO) 145 /CMM (150-450); RED BLOOD CELL COUNT(AUTO) 4.95 MIL/uL (4.0-5.2); WHITE BLOOD COUNT (AUTO) 6.5 K/uL (4.3-11.0)
[2019-08-26 05:48] LABS: ALBUMIN 2.8 g/dL (3.4-5.0); CALCIUM, SERUM 9.4 mg/dL (8.5-10.1); CREATININE 1.1 mg/dL (0.6-1.3); MAGNESIUM 2.5 mg/dL (1.8-2.4); PHOSPHORUS 2.7 mg/dL (2.5-4.9); POTASSIUM 3.8 mmol/L (3.5-5.1); TOTAL PROTEIN, SERUM 6.1 g/dL (6.4-8.2)
[2019-08-26 06:32] LABS: BAND % (MANUAL) 9 % (0.0-5.0); LYMPHOCYTES % (MANUAL) 6 % (16-48); MONOCYTES % (MANUAL) 2 % (0-11.0); NEUTROPHILS % (MANUAL) 83 (42-76)
--- NOTE | 2019-08-26 06:55 | NUR ---
WOOD FINISHER PT NOTED WITH BLOOD IN URINE; DR LO NOTIFIED.
--- NOTE | 2019-08-26 07:15 | NUR ---
SUGAR GRINDER OPENING NOTES RECEIVED REPORT FROM PM NURSE.PATIENT IN BED.IN HIGH FOWLERS POSITION. ALERT X ORIENTED X1-2. ON HIGH FLOW OXYGEN AT FIO2 AT 55LPM. SATING 91% AT THIS TIME. SINUS TACHY ON THE MONITOR WITH HR 103. NO COMPLAINTS OF PAIN. PATIENT ENCOURAGED TO VERBALIZE FEELING AND CONCERN, TO CALL FOR HELP AND ASSISTANCE. BOUDREAUX CATHETER IN PLACE WITH HEMATURIA. MADE AWARE.NOTIFIED THAT PATIENT ON XARELTO. SAFETY AND ASPIRATION MEASUES IN PLACE.BED IS LOW AND IN LOCKED POSITION.CALL LIGHT IN REACH.BED ALARM ON.SRX3.WILL CONTINUE TO MONITOR.
[2019-08-26] MEDS: LEVOTHYROXINE SODIUM 88 MCG TABLET PO SCH (07:45)
[2019-08-26] MEDS: CEFTRIAXONE 1 G in IV D5W 50 ML IV SCH (07:46)
[2019-08-26] MEDS: MULTIVIT W/MINERALS 1 TAB TABLET PO SCH (08:59)
[2019-08-26] MEDS: methylPREDNISolone SOD SUCC 125 MG/2ML VIAL IV SCH ×3 (08:59→17:03)
[2019-08-26] MEDS: ASCORBIC ACID 500 MG TABLET PO SCH (08:59)
[2019-08-26] MEDS: ASPIRIN EC 81 MG TABLET.DR PO SCH (08:59)
[2019-08-26] MEDS: PREGABALIN 100 MG CAPSULE PO SCH ×2 (08:59→17:03)
[2019-08-26] MEDS: FLUTICASONE PROPIONATE 16 GM BOTTLE NS SCH ×2 (09:02→17:26)
--- NOTE | 2019-08-26 09:30 | NUR ---
OUTSIDE PARTS SALES NOTE PATIENT HAS ONLY ONE IV LINE GOT INFILTRATED.REMOVED AND APPLIED PRESSURE DRESSING.UNABLE TO INSERT PERIPHERAL LINE.EXTREMITIES ARE SWOLLEN AND HARD STICK.CARD TAPE CONVERTER OPERATOR THEODORE MADE AWARE ABOUT MIDLINE INSERTION REQUEST.WILL CONTINUE TO MONITOR.CHARGE NURSE AWARE.
--- NOTE | 2019-08-26 11:14 | NUR ---
TITLE AGENT NOTE PATIENT;'S DAUGHTER ARIANA REQUESTED ABOUT PATIENT UPDATES.NOT ON LIST IN FACE SHEET.SPOKE TO SON TOD .OK TO GIVE IN FORMATION.ADDED IN LIST TO GIVE UPDATES.WILL CONTINUE TO MONITOR.
--- NOTE | 2019-08-26 13:00 | NUR ---
BANDER HAND NOTE SOLUMEDROL NOT ADMINISTERED BECAUSE OF NO IV ACCESS.
--- NOTE | 2019-08-26 17:00 | NUR ---
LEAN CONSULTANT NOTE S/P MIDLINE PLACEMENT ON LORENA.INTACT AND PATENT.DRESSING INTACT.RESUMED IVF.WILL CONTINUE TO MONITOR.
--- NOTE | 2019-08-26 17:15 | NUR ---
CARDIOTHORACIC ICU RN CLOSING NOTES PATIENT IN BED.IN FOWLERS POSITION. ALERT X ORIENTED X2. ON HIGH FLOW OXYGEN AT FIO2 AT 55LPM. SATING 96% AT THIS TIME. SINUS TACHY ON THE MONITOR WITH HR 110. NO COMPLAINTS OF PAIN. PATIENT ENCOURAGED TO VERBALIZE FEELING AND CONCERN, TO CALL FOR HELP AND ASSISTANCE. BOUDREAUX CATHETER IN PLACE WITH CLOUDY SANIA COLOR. SAFETY AND ASPIRATION MEASURES IN PLACE.BED IS LOW AND IN LOCKED POSITION.CALL LIGHT IN REACH.BED ALARM ON.SRX3.ENDORSED TO PM NURSE FOR NAZ.
[2019-08-26] MEDS: RIVAROXABAN 10 MG TABLET PO SCH (17:26)
--- NOTE | 2019-08-26 17:30 | NUR ---
HOSPITALITY INTERNSHIP NOTE XARELTO GIVEN.NO S/S OF BLEEDING.NO HEMATURIA.OK TO GIVE PER 'S NOTE.WILL CONTINUE TO MONITOR.
[2019-08-26] MEDS: IV NS 0.9% 1,000 ML IV PRN (18:00)
--- NOTE | 2019-08-26 19:18 | NUR ---
KNIFE SETTER GRINDER MACHINE CLOSING NOTES PATIENT IN BED.IN FOWLERS POSITION. ALERT X ORIENTED X2. ON HIGH FLOW OXYGEN AT FIO2 AT 55LPM. SATING 96% AT THIS TIME. SINUS TACHY ON THE MONITOR WITH HR 110. NO COMPLAINTS OF PAIN. PATIENT ENCOURAGED TO VERBALIZE FEELING AND CONCERN, TO CALL FOR HELP AND ASSISTANCE. BOUDREAUX CATHETER IN PLACE WITH CLOUDY SANIA COLOR. SAFETY AND ASPIRATION MEASURES IN PLACE.BED IS LOW AND IN LOCKED POSITION.CALL LIGHT IN REACH.BED ALARM ON.SRX3.ENDORSED TO PM NURSE FOR NAZ.
[2019-08-26] MEDS: FAMOTIDINE (20 MG) 20 MG TABLET PO SCH (22:15)
[2019-08-26] MEDS: SENNOSIDES 8.6 MG TABLET PO SCH (22:39)
[2019-08-27] VITALS (24 sets, daily range): BP systolic 122–160; BP diastolic 53–115
[2019-08-27] MEDS: IPRATROPIUM NEB FS 0.5 MG/2.5 ML AMPUL.NEB NEB SCH ×4 (01:54→20:03)
[2019-08-27] MEDS: ALBUTEROL HALF STRENGTH 1.25 MG/3 ML VIAL.NEB NEB SCH ×4 (01:54→20:03)
[2019-08-27] MEDS: IV NS 0.9% 1,000 ML IV PRN ×2 (05:26→21:26)
--- NOTE | 2019-08-27 05:39 | NUR ---
rn notes in bed resting comfortably with no distress noted. breathing even and unlabored. high flow well tolerated. no significant change of condition. no complaint of pain or discomfort. alert with confusion, able to mouthwords needs. kept clean and dry. will endorse to next shift for continuity of care
--- NOTE | 2019-08-27 07:20 | NUR ---
HUMAN RESOURCE OFFICER NOTES OPENING RECEIVED PATIENT IN BED A/OX 3 AWAKE IN BED. NO SOB OR DISCOMFORT NOTED AT THIS TIME. BLE EDEMA POSITIVE DVT.SINUS TACHY 102. CALL LIGHT WITHIN REACH, BED AT THE LOWEST POSITION LOCKED. WILL CONTINUE TO MONITOR PT.
[2019-08-27] MEDS: LEVOTHYROXINE SODIUM 88 MCG TABLET PO SCH (07:59)
[2019-08-27] MEDS: CEFTRIAXONE 1 G in IV D5W 50 ML IV SCH (07:59)
[2019-08-27] MEDS: methylPREDNISolone SOD SUCC 125 MG/2ML VIAL IV SCH ×3 (09:36→17:19)
[2019-08-27] MEDS: ASCORBIC ACID 500 MG TABLET PO SCH (09:40)
[2019-08-27] MEDS: ASPIRIN EC 81 MG TABLET.DR PO SCH (09:40)
[2019-08-27] MEDS: FLUTICASONE PROPIONATE 16 GM BOTTLE NS SCH ×2 (09:40→17:24)
[2019-08-27] MEDS: PREGABALIN 100 MG CAPSULE PO SCH ×2 (09:40→17:24)
[2019-08-27] MEDS: MULTIVIT W/MINERALS 1 TAB TABLET PO SCH (09:40)
[2019-08-27 09:44] LABS: BASOPHILS % (AUTO) 0.1 % (0.0-2.0); HEMATOCRIT 43 % (33-45); HEMOGLOBIN 13.1 g/dL (11.5-14.8); LYMPHOCYTES # (AUTO) 0.5 /CMM (0.8-4.8); LYMPHOCYTES % (AUTO) 5.5 % (20.0-44.0); MEAN CORPUSCULAR HGB CONC 30 g/dl (31.0-36.0); MEAN CORPUSCULAR VOLUME 86 fL (82-100); MONOCYTES # (AUTO) 0.4 /CMM (0.1-1.30); MONOCYTES % (AUTO) 3.6 % (2.0-12.0); NEUTROPHILS % (AUTO) 90.8 % (43.0-81.0); PLATELET COUNT (AUTO) 142 /CMM (150-450); RED BLOOD CELL COUNT(AUTO) 5.01 MIL/uL (4.0-5.2); WHITE BLOOD COUNT (AUTO) 9.9 K/uL (4.3-11.0)
[2019-08-27 10:04] LABS: ALBUMIN 2.6 g/dL (3.4-5.0); BILIRUBIN,TOTAL 0.9 mg/dL (0.2-1.0); CREATININE 1.2 mg/dL (0.6-1.3); MAGNESIUM 2.6 mg/dL (1.8-2.4); PHOSPHORUS 2.6 mg/dL (2.5-4.9); TOTAL PROTEIN, SERUM 6.3 g/dL (6.4-8.2)
[2019-08-27] MEDS: RIVAROXABAN 10 MG TABLET PO SCH (17:27)
--- NOTE | 2019-08-27 19:34 | NUR ---
DATACAP DEVELOPER CLOSING NOTES PATIENT IN BED COMFORTABLE. NO SOB OR DISCOMFORT NOTED AT THIS TIME. ALL NEEDS ATTENDED, MEDICATION ADMINISTRATED. NO SOB OR DISCOMFORT AT THIS TIME. IV SITE PATENT. CALL LIGHT WITHIN REACH, BED AT THE LWOEST POSITION LOCKED. ENDORSED TO CASING BUILDER NURSE FOR NAZ.
[2019-08-27] MEDS: FAMOTIDINE (20 MG) 20 MG TABLET PO SCH (21:38)
[2019-08-27] MEDS: SENNOSIDES 8.6 MG TABLET PO SCH (21:38)
[2019-08-27] MEDS: HYDROCODONE/APAP 5/325MG 1 EACH TABLET PO PRN (21:39)
[2019-08-28] VITALS (24 sets, daily range): BP systolic 94–154; BP diastolic 55–98
[2019-08-28] MEDS: IPRATROPIUM NEB FS 0.5 MG/2.5 ML AMPUL.NEB NEB SCH ×4 (01:35→20:02)
[2019-08-28] MEDS: ALBUTEROL HALF STRENGTH 1.25 MG/3 ML VIAL.NEB NEB SCH ×4 (01:35→20:02)
[2019-08-28 05:58] LABS: BASOPHILS % (AUTO) 0.2 % (0.0-2.0); HEMATOCRIT 41 % (33-45); HEMOGLOBIN 12.6 g/dL (11.5-14.8); LYMPHOCYTES # (AUTO) 0.6 /CMM (0.8-4.8); MEAN CORPUSCULAR HGB CONC 31 g/dl (31.0-36.0); MEAN CORPUSCULAR VOLUME 84 fL (82-100); MONOCYTES # (AUTO) 0.3 /CMM (0.1-1.30); MONOCYTES % (AUTO) 1.8 % (2.0-12.0); PLATELET COUNT (AUTO) 174 /CMM (150-450); RED BLOOD CELL COUNT(AUTO) 4.84 MIL/uL (4.0-5.2); WHITE BLOOD COUNT (AUTO) 14.9 K/uL (4.3-11.0)
[2019-08-28 06:13] LABS: ALBUMIN 2.7 g/dL (3.4-5.0); BILIRUBIN,TOTAL 1.1 mg/dL (0.2-1.0); CALCIUM, SERUM 9.8 mg/dL (8.5-10.1); CREATININE 1.2 mg/dL (0.6-1.3); MAGNESIUM 2.5 mg/dL (1.8-2.4); PHOSPHORUS 2.7 mg/dL (2.5-4.9); POTASSIUM 3.7 mmol/L (3.5-5.1); TOTAL PROTEIN, SERUM 5.9 g/dL (6.4-8.2)
--- NOTE | 2019-08-28 06:38 | NUR ---
rn notes no significant change of condition. resting comfortably in bed with no apparent distress noted. breathing even and unlabored. high flow well tolerated. complained of back pain, norco given with relief. alert with confusion, able to mouthwords needs. vital signs wnl. kept clean and dry. will endorse to next shift for continuity of care
[2019-08-28 06:59] LABS: BAND % (MANUAL) 5 % (0.0-5.0); LYMPHOCYTES % (MANUAL) 7 % (16-48); MONOCYTES % (MANUAL) 1 % (0-11.0); NEUTROPHILS % (MANUAL) 87 (42-76)
--- NOTE | 2019-08-28 08:00 | NUR ---
ICU/RN AM SHIFT OPENING NOTES RECEIVED PT AWAKE SIN BED, PT A/O X 2, DENIES ANY SYMPTOMS. NO ACUTE RESPIRATORY DISTRESS NOTED. ON HIGH FLOW WITH 55L OF O2 AND FIO2 80%, RESPIRATIONS EVEN & UNLABORED, LUNG SOUNDS RHONCHI. ON TELE WITH SINUS TACHY, HR 115. WITH ON GOING IV INFUSION OF NS @ 70CC/HR, MIDLINE PATENT WITH NO S/S OF INFECTION. BOUDREAUX CATHETER INTACT WITH DARK SANIA COLOR URINE OUTPUT. PT IS COMFORTABLE SCHEDULED AM MEDS TO BE GIVEN. CL WITHIN REACHED AND SAFETY MAINTAINED. ON GOING MONITORING. Addendum: 08/28/19 at 1004 by MARCELA HARDY RN ADDENDUM: PT NOTED WITH WEEPING EDEMA ON LEGS, OFF LOADED ON PILLOWS.
[2019-08-28] MEDS: FLUTICASONE PROPIONATE 16 GM BOTTLE NS SCH ×2 (09:00→16:49)
[2019-08-28] MEDS: CEFTRIAXONE 1 G in IV D5W 50 ML IV SCH (09:00)
[2019-08-28] MEDS: MULTIVIT W/MINERALS 1 TAB TABLET PO SCH (09:01)
[2019-08-28] MEDS: LEVOTHYROXINE SODIUM 88 MCG TABLET PO SCH (09:01)
[2019-08-28] MEDS: ASPIRIN EC 81 MG TABLET.DR PO SCH (09:01)
[2019-08-28] MEDS: methylPREDNISolone SOD SUCC 125 MG/2ML VIAL IV SCH ×3 (09:01→16:49)
[2019-08-28] MEDS: PREGABALIN 100 MG CAPSULE PO SCH ×2 (09:01→16:49)
[2019-08-28] MEDS: ASCORBIC ACID 500 MG TABLET PO SCH (09:01)
--- NOTE | 2019-08-28 12:00 | NUR ---
ICU/RN NOON ROUNDS NO ACUTE CHANGE OF CONDITION. HIGH FLOW CONTINUES. MONITORING CONTINUED.
[2019-08-28] MEDS: IV NS 0.9% 1,000 ML IV PRN (14:20)
[2019-08-28] MEDS: RIVAROXABAN 10 MG TABLET PO SCH (16:52)
--- NOTE | 2019-08-28 17:00 | NUR ---
ICU/RN AFTERNOON ROUNDS PM CARE PROVIDED. NO CHANGE OF CONDITION. MONITORING CONTINUED.
--- NOTE | 2019-08-28 19:29 | NUR ---
ICU/RN AM SHIFT CLOSING NOTES ALL NEEDS MET. NO ACUTE CHANGE OF CONDITION NOTED DURING THE SHIFT. PT ON HIGH FLOW, SATURATING WELL. PT ENDORSED TO PM NURSE TO CONTINUE CARE. CL WITHIN REACHED AND SAFETY MAINTAINED.
--- NOTE | 2019-08-28 20:04 | NUR ---
ICU/RN OPENING NOTE RECEIVED PATIENT A/O X2. PATIENT CURRENTLY SHOWS NO SIGNS OF ANY DISTRESS. PATIENT IS ON HIGH FLOW OXYGEN OF FI02 OF 80% WITH 55L WITH NO SIGN OF ANY SOB AND SPO2 @96%. PATIENT ON THE BEDSIDE MONITOR SHOWING NSR WITH HR IN THE 90'S. HAS A LORENA MIDLINE PATENT AND FLUSHING WITH NS RUNNING AT 70CC/HR. FC DRAINING VIA GRAVITY WITH SANIA RED OUTPUT. ALL NEED HAVE BEEN MET. ALL SAFETY PRECAUTIONS APPLIED. WILL CONTINUE TO MONITOR PATIENT THROUGHOUT SHIFT.
[2019-08-28] MEDS: SENNOSIDES 8.6 MG TABLET PO SCH (21:33)
[2019-08-28] MEDS: FAMOTIDINE (20 MG) 20 MG TABLET PO SCH (21:33)
[2019-08-29] VITALS (27 sets, daily range): BP systolic 93–141; BP diastolic 53–98
[2019-08-29] MEDS: ALBUTEROL HALF STRENGTH 1.25 MG/3 ML VIAL.NEB NEB SCH ×4 (01:45→20:16)
[2019-08-29] MEDS: IPRATROPIUM NEB FS 0.5 MG/2.5 ML AMPUL.NEB NEB SCH ×4 (01:46→20:16)
[2019-08-29 04:50] LABS: BASOPHILS % (AUTO) 0.2 % (0.0-2.0); HEMATOCRIT 40 % (33-45); HEMOGLOBIN 12.4 g/dL (11.5-14.8); LYMPHOCYTES # (AUTO) 0.4 /CMM (0.8-4.8); LYMPHOCYTES % (AUTO) 2.5 % (20.0-44.0); MEAN CORPUSCULAR HGB CONC 31 g/dl (31.0-36.0); MEAN CORPUSCULAR VOLUME 85 fL (82-100); MONOCYTES # (AUTO) 0.4 /CMM (0.1-1.30); MONOCYTES % (AUTO) 2.1 % (2.0-12.0); NEUTROPHILS # (AUTO) 16.1 /CMM (1.8-8.9); NEUTROPHILS % (AUTO) 95.2 % (43.0-81.0); PLATELET COUNT (AUTO) 145 /CMM (150-450); RED BLOOD CELL COUNT(AUTO) 4.72 MIL/uL (4.0-5.2)
[2019-08-29 05:04] LABS: CALCIUM, SERUM 9.8 mg/dL (8.5-10.1); MAGNESIUM 2.5 mg/dL (1.8-2.4); PHOSPHORUS 3.1 mg/dL (2.5-4.9); POTASSIUM 3.7 mmol/L (3.5-5.1)
--- NOTE | 2019-08-29 05:15 | NUR ---
ICU/RN NOTE PATIENT REFUSED BED LINEN CHANGE. PATIENT SEEMED ANXIOUS AND REPEATEDLY SAID NO. PATIENT ONLY ALLOWED ME TO CHANGE WOUND DRESSINGS ON LOWER EXTREMITIES AND GOWN.
[2019-08-29] MEDS: IV NS 0.9% 1,000 ML IV PRN (05:45)
--- NOTE | 2019-08-29 07:11 | NUR ---
ICU/RN CLOSING PATIENT IN BED WITH NO SIGN OF ANY DISTRESS. PATIENT ON HIGH FLOW 02 WITH FI02 AT 80% WITH 55L NO SIGN OF ANY SOB AND SPO2 AT 94%. PATIENT SINUS TACHY ON BEDSIDE MONITOR. UNIQUE MIDLINE WITH NS RUNNING AT 70CC/HR. ALL SAFETY PRECAUTIONS APPLIED. ENDORSED PATIENT TO MORNING SHIFT NURSE
--- NOTE | 2019-08-29 08:00 | NUR ---
ICU/RN AM SHIFT OPENING NOTES RECEIVED PT AWAKE SITTING BED, NO ACUTE RESPIRATORY DISTRESS NOTED, PT PLACED ON HIGH FLOW, NOTED WITH RHONCHI LUNG SOUNDS, RESPIRATIONS EVEN & UNLABORED, SATURATING @ 97%. ON TELE MONITORING WITH SINUS RHYTHM, HR 91. WITH ON GOING IV INFUSION OF NS @ 70CC/HR, MIDLINE PATENT WITH NO S/S OF INFECTION. BOUDREAUX CATHETER INTACT WITH CLEAR SANIA COLORED URINE OUTPUT. PT IS COMFORTABLE, SCHEDULED AM MEDS TO BE GIVEN. CL WITHIN REACHED AND SAFETY MAINTAINED. ON GOING MONITORING. Addendum: 08/29/19 at 0928 by MARCELA HARDY RN ADDENDUM: PT A/O 2-3, ABLE TO VERBALIZED NEEDS BUT NOTED WITH CONFUSION.
[2019-08-29] MEDS: FLUTICASONE PROPIONATE 16 GM BOTTLE NS SCH ×2 (08:02→18:02)
[2019-08-29] MEDS: CEFTRIAXONE 1 G in IV D5W 50 ML IV SCH (08:02)
[2019-08-29] MEDS: ASCORBIC ACID 500 MG TABLET PO SCH (08:03)
[2019-08-29] MEDS: LEVOTHYROXINE SODIUM 88 MCG TABLET PO SCH (08:03)
[2019-08-29] MEDS: methylPREDNISolone SOD SUCC 125 MG/2ML VIAL IV SCH ×3 (08:03→18:02)
[2019-08-29] MEDS: PREGABALIN 100 MG CAPSULE PO SCH ×2 (08:03→18:01)
[2019-08-29] MEDS: ASPIRIN EC 81 MG TABLET.DR PO SCH (08:03)
[2019-08-29] MEDS: MULTIVIT W/MINERALS 1 TAB TABLET PO SCH (08:06)
--- NOTE | 2019-08-29 08:30 | NUR ---
ICU/RN LUNG VQ VQ OF LUNGS CANCELLED D/T UNAVAILABILITY OF PORTABLE MACHINE, DR. RED IS AWARE.
--- NOTE | 2019-08-29 09:00 | NUR ---
ICU/RN MASK PT PLACED PLACED ON SIMPLE MASK WITH 10L O2. MONITORING CONTINUED.
[2019-08-29] MEDS: IV D5W 1,000 ML IV PRN (10:42)
--- NOTE | 2019-08-29 10:57 | NUR ---
ICU/RN CT PULMONARY ANGIOGRAM CONSENT OBTAINED FROM PT'S FOR CT PULMONARY ANGIOGRAM BUT PT HAS ALLERGY TO IODINE, DR. RED NOTIFIED, CHARGE NURSE AWARE. IMAGING CANCELLED.
[2019-08-29 11:12] LABS: ABG BASE EXCESS -2.7 mmol/L; ABG OXYGEN SATURATION 88.9 % (92.0-98.5); ABG PCO2 31.3 mmHg (35.0-45.0); ABG PH 7.434 (7.350-7.450); ABG PO2 55.1 mmHg (75.0-100.0); AaDO2 338.3 mmHg; COHb 0.6 % (0.5-1.5); MetHb 0.4 % (0.0-1.5); SITE, ABG Left Radial; VENT MODE, BG simple mask
--- NOTE | 2019-08-29 11:18 | NUR ---
ICU/RN BACK TO HIGH FLOW D/T RO RESULT OF ABG, PT PLACED BACK ON HIGH FLOW WITH 55L OF O2 AND 80% FIO2. ON GOING MONITORING.
--- NOTE | 2019-08-29 11:20 | NUR ---
ICU/RN BACK TO VQ SCAN SINCE PT HAS ALLERGY TO IODINE, WILL INSTEAD PERFORM VQ SCAN.
--- NOTE | 2019-08-29 15:24 | NUR ---
ICU/RN VQ SCAN PT LEFT ICU VIA BED FOR VQ SCAN IN STABLE CONDITION.
--- NOTE | 2019-08-29 16:39 | NUR ---
ICU/RN BACK TO ICU S/P VQ SCAN, PT RETURNED TO ICU IN STABLE CONDITION. MONITORING CONTINUED.
[2019-08-29] MEDS: RIVAROXABAN 10 MG TABLET PO SCH (18:00)
--- NOTE | 2019-08-29 19:10 | NUR ---
BRINELL TESTER OPENING NOTE RECEIVED PATIENT IN BED RESTING WITH HOB ELEVATED. ON HIGH FLOW, BREATHING EVEN AND NON LABORED. NOTED WITH BILATERAL EXTREMITIES EDEMA, WEEPING NOTED. PATIENT HAS LORENA MIDLINE, WITH D5W RUNNING AT 75 MLS/HR. ON BOUDREAUX CATH. URINE IS SANIA/RED IN COLOR. IN NO APPARENT DISTRESS NOTED AT THIS TIME. WILL CONTINUE TO MONITOR.
--- NOTE | 2019-08-29 19:30 | NUR ---
ICU/RN AM SHIFT CLOSING NOTES ALL NEEDS MET. NO ACUTE CHANGE OF CONDITION NOTED DURING THE SHIFT. PT ENDORSED TO PM NURSE TO CONTINUE CARE. CL WITHIN REACHED AND SAFETY MAINTAINED.
[2019-08-29] MEDS: FAMOTIDINE (20 MG) 20 MG TABLET PO SCH (21:18)
[2019-08-29] MEDS: SENNOSIDES 8.6 MG TABLET PO SCH (21:18)
[2019-08-30] VITALS (23 sets, daily range): BP systolic 90–153; BP diastolic 48–97
[2019-08-30] MEDS: ALBUTEROL HALF STRENGTH 1.25 MG/3 ML VIAL.NEB NEB SCH ×4 (01:25→19:48)
[2019-08-30] MEDS: IPRATROPIUM NEB FS 0.5 MG/2.5 ML AMPUL.NEB NEB SCH ×4 (01:25→19:48)
[2019-08-30] MEDS: IV D5W 1,000 ML IV PRN ×2 (02:05→17:28)
--- NOTE | 2019-08-30 03:30 | NUR ---
CURTAINS AND DRAPERIES SALESPERSON NOTE PATIENT TOLERATED BED BATH AT THIS TIME. WOUND DRESSING CHANGES DONE. IV D5W @ 75 CC/HR RUNNING AND TOLERATING WELL. WILL CONTINUE TO MONITOR.
[2019-08-30 05:04] LABS: CALCIUM, SERUM 10.2 mg/dL (8.5-10.1); CREATININE 1.2 mg/dL (0.6-1.3); POTASSIUM 3.9 mmol/L (3.5-5.1)
--- NOTE | 2019-08-30 07:15 | NUR ---
CLERK OPERATOR CLOSING NOTE PATIENT IS IN BED WITH HOB ELEVATED. BREATHING EVEN AND NON LABORED. NO SOB NOTED. VERBALLY RESPONSIVE, CONFUSED. ON HIGH FLOW AND TOLERATING WELL. DUE MEDS GIVEN AND TOLERATED WELL. ON BOUDREAUX CATH, WITH 160 CC OUTPUT IN THIS SHIFT. URINE IS STILL CLOUDY, SANIA, AND RED IN COLOR. NOTED EDEMA ON BILATERAL EXTREMITIES WITH WEEPING. D5W @ 75 CC/HR RUNNING AND TOLERATING WELL. LORENA MIDLINE KEPT PATENT. IN NO APPARENT DISTRESS NOTED. PATIENT IS KEPT CLEAN, DRY, AND COMFORTABLE. CALL LIGHT IS WITHIN EAST REACH. ENDORSED TO AM SHIFT RN FOR CONTINUATION OF CARE.
[2019-08-30] MEDS: ASCORBIC ACID 500 MG TABLET PO SCH (09:13)
[2019-08-30] MEDS: CEFTRIAXONE 1 G in IV D5W 50 ML IV SCH (09:13)
[2019-08-30] MEDS: LEVOTHYROXINE SODIUM 88 MCG TABLET PO SCH (09:13)
[2019-08-30] MEDS: methylPREDNISolone SOD SUCC 125 MG/2ML VIAL IV SCH ×3 (09:13→17:12)
[2019-08-30] MEDS: MULTIVIT W/MINERALS 1 TAB TABLET PO SCH (09:13)
[2019-08-30] MEDS: PREGABALIN 100 MG CAPSULE PO SCH ×2 (09:13→17:13)
[2019-08-30] MEDS: FLUTICASONE PROPIONATE 16 GM BOTTLE NS SCH ×2 (09:14→17:36)
--- NOTE | 2019-08-30 09:30 | NUR ---
RN NOTE PT COUGHS A LOT, WAS ABLE TO TOLERATE FOOD ATE ABOUT 25%, BUT COUGHS AFTER LIQUIDS. MEDICATIONS ARE CRUSHED AND MIXED WITH APPLE SAUCE - PT WAS ABLE TO SALLOW THAT, BUT WHEN DRINKS WATER FROM A STRAW HAS COUGH. SWALLOW EVAL ORDERED, PENDING, PT ABLE TO CLEAR THROAT, BUT WEAK. RT IS DEEP SUCTIONING. WILL MONITOR AND ADJUST DIET ACCORDINGLY.
[2019-08-30] MEDS: ASPIRIN EC 81 MG TABLET.DR PO SCH (12:06)
--- NOTE | 2019-08-30 13:00 | NUR ---
RN NOTE PT ABLE TO SWALLOW PURRED AND THICKENED FLUIDS. ACCORDING TO PHYSICAL THERAPY, THERE IS NO SPEECH THERAPIST AVAILABLE TODAY. PT MONITORED NO COUGHING AFTER THICKENED LIQUIDS NOTED.
[2019-08-30] MEDS: HYDROCODONE/APAP 5/325MG 1 EACH TABLET PO PRN (14:43)
--- NOTE | 2019-08-30 15:30 | NUR ---
RN NOTE PT'S BOUDREAUX NOTED TO BE DISLODGED AND POPPED OUT FROM URETHRA, OLD BOUDREAUX REMOVED, AND NEW BOUDREAUX PLACED INSTEAD. WILL MONITOR FOR URINE OUTPUT CLOSELY.
[2019-08-30] MEDS: RIVAROXABAN 10 MG TABLET PO SCH (17:13)
--- NOTE | 2019-08-30 18:15 | NUR ---
ASSOCIATE CONSULTING ENGINEER CARE TRANSFER NOTE RECEIVED REPORT FROM GONZALEZ VARGAS FOR NAZ.PATIENT IS IN BED WITH HOB ELEVATED. BREATHING EVEN AND NON LABORED. NO SOB NOTED. VERBALLY RESPONSIVE FOR SIMPLE COMPLIANT.ON HIGH FLOW O2 AND TOLERATING WELL. ON BOUDREAUX CATH. NOTED EDEMA ON BILATERAL EXTREMITIES WITH WEEPING. D5W @ 75 CC/HR RUNNING AND TOLERATING WELL. LORENA MIDLINE PATENT. SAFETY AND ASPIRATION MEASURES IN PLACE.WILL CONTINUE TO MONITOR.
--- NOTE | 2019-08-30 19:00 | NUR ---
RN OPENING NOTES: PATIENT IN BED, ASLEEP, BUT EASILY AROUSABLE. VERBALLY RESPONSIVE. ON HIGH FLOW O2, TOLERATING WELL. NO SOB. NO C/O PAIN AT THIS TIME. NSR ON THE MONITOR. ON BOUDREAUX CATH, INTACT AND PATENT, DRAINING CLEAR YELLOW URINE AT THIS TIME. PER AM SHIFT REPORT, PATIENT HAD BLOOD-TINGED URINE IN AM. LORENA MIDLINE C/D/I. FLUSHING WELL. ON D5W AT 75 MLS/HR. SAFETY PRECAUTIONS IMPLEMENTED. BED LOCKED AND LOW POSITION. CALL LIGHT WITHIN REACH. WILL CONT. TO MONITOR. Addendum: 08/30/19 at 2158 by EDNA SOLORZANO RN CORRECTION: BOUDREAUX DRAINING CLOUDY URINE.
--- NOTE | 2019-08-30 19:10 | NUR ---
BRONC BUSTER NOTE ENDORSED TO PM NURSE FOR NAZ.
[2019-08-30] MEDS: FAMOTIDINE (20 MG) 20 MG TABLET PO SCH (21:14)
[2019-08-30] MEDS: SENNOSIDES 8.6 MG TABLET PO SCH (21:14)
[2019-08-31] VITALS (24 sets, daily range): BP systolic 90–127; BP diastolic 51–87
--- NOTE | 2019-08-31 00:12 | NUR ---
RN NOTE: PATIENT NOTED WITH TEMP 96.9F VIA AXILLA. BEAR HUGGER IN PLACE AND WARM BED BATH PROVIDED. PATIENT TOLERATING NURSING INTERVENTIONS. WILL CONT. TO MONITOR.
[2019-08-31] MEDS: IPRATROPIUM NEB FS 0.5 MG/2.5 ML AMPUL.NEB NEB SCH ×4 (01:12→19:40)
[2019-08-31] MEDS: ALBUTEROL HALF STRENGTH 1.25 MG/3 ML VIAL.NEB NEB SCH ×4 (01:12→19:40)
[2019-08-31] MEDS: IV D5W 1,000 ML IV PRN ×2 (04:54→22:25)
--- NOTE | 2019-08-31 07:15 | NUR ---
RN CLOSING NOTES: PATIENT IN BED, ASLEEP, BUT EASY TO AROUSE. VERBALLY RESPONSIVE. ON HIGH FLOW O2, TOLERATING WELL. NO SOB. NO C/O PAIN AT THIS TIME. NSR ON THE MONITOR. ON BOUDREAUX CATH, INTACT AND PATENT. LORENA MIDLINE C/D/I. FLUSHING WELL. ON D5W AT 75 MLS/HR. SAFETY PRECAUTIONS IMPLEMENTED. BED LOCKED AND LOW POSITION. CALL LIGHT WITHIN REACH. ENDORSED TO AM SHIFT NURSE FOR CONTINUITY OF CARE.
[2019-08-31] MEDS: LEVOTHYROXINE SODIUM 88 MCG TABLET PO SCH (07:30)
[2019-08-31] MEDS: ASPIRIN EC 81 MG TABLET.DR PO SCH (08:53)
[2019-08-31] MEDS: ASCORBIC ACID 500 MG TABLET PO SCH (08:53)
[2019-08-31] MEDS: PREGABALIN 100 MG CAPSULE PO SCH ×2 (08:53→17:47)
[2019-08-31] MEDS: MULTIVIT W/MINERALS 1 TAB TABLET PO SCH (08:53)
--- NOTE | 2019-08-31 08:54 | NUR ---
MALE INFERTILITY SPECIALIST NOTE PATIENT TOO SLEEPY, AROUSABLE, FOLLOWS SIMPLE COMMANDS AND FALLS BACK ASLEEP. NON-ADMIN PO MEDS AT THIS TIME FOR SAFETY.
[2019-08-31] MEDS: methylPREDNISolone SOD SUCC 125 MG/2ML VIAL IV SCH ×3 (08:56→17:47)
[2019-08-31] MEDS: CEFTRIAXONE 1 G in IV D5W 50 ML IV SCH (08:56)
[2019-08-31 09:06] LABS: ABG BASE EXCESS -0.3 mmol/L; ABG OXYGEN SATURATION 94.8 % (92.0-98.5); ABG PCO2 39.7 mmHg (35.0-45.0); ABG PH 7.405 (7.350-7.450); ABG PO2 75.9 mmHg (75.0-100.0); AaDO2 272.1 mmHg; COHb 0.5 % (0.5-1.5); MetHb 0.3 % (0.0-1.5); SITE, ABG Left Radial; VENT MODE, BG HFNC 55% 50L
[2019-08-31] MEDS: FLUTICASONE PROPIONATE 16 GM BOTTLE NS SCH ×2 (09:27→17:49)
--- NOTE | 2019-08-31 09:28 | NUR ---
RN DIGESTIVE NOTE PER RADIOLOGY CT HIGH CONTRAST CAN'T BE DONE IF PATIENT IS UNABLE TO HOLD HER BREATH FOR 10SECS AND EXHALE FOR 10 SECS 20 TIMES, WENT TO BEDSIDE AND INSTRUCTED PATIENT. PATIENT WAS UNABLE TO HOLD HER BREATH FOR 10 SECS AND EXHALE. RADIOLOGY AND DR. RED INFORMED. WITH ORDERS TO CANCEL ORDER.
[2019-08-31] MEDS: ACETYLCYSTEINE 10% SOLN 400 MG/4 ML VIAL NEB SCH (16:04)
[2019-08-31] MEDS: RIVAROXABAN 10 MG TABLET PO SCH (17:48)
[2019-08-31] MEDS: SENNOSIDES 8.6 MG TABLET PO SCH (22:29)
[2019-08-31] MEDS: FAMOTIDINE (20 MG) 20 MG TABLET PO SCH (22:30)
[2019-09-01] VITALS (27 sets, daily range): BP systolic 71–140; BP diastolic 31–83
[2019-09-01] MEDS: ACETYLCYSTEINE 10% SOLN 400 MG/4 ML VIAL NEB SCH ×3 (00:33→15:31)
[2019-09-01] MEDS: IPRATROPIUM NEB FS 0.5 MG/2.5 ML AMPUL.NEB NEB SCH ×4 (00:33→20:03)
[2019-09-01] MEDS: ALBUTEROL HALF STRENGTH 1.25 MG/3 ML VIAL.NEB NEB SCH ×4 (00:33→20:03)
--- NOTE | 2019-09-01 07:15 | NUR ---
GEOLOGY INSTRUCTOR NOTES RECEIVED PATIENT ASLEEP , AROUSES EASILY , AOX1 , LETHARGIC , ON HIGH FLOW O2 @ 85% 55LPM ,SPO2 OF 95% , SR 75 ON BEDSIDE MONITOR , FC DRAINING VIA GRAVITY , BLE DRESSING CLEAN DRY AND INTACT , LORENA MIDLINE PATENT AND INTACT WITH D52 @ 75ML/HR INFUSING WELL , ALL NEEDS ATTENDED , BED ON LOW AND LOCKED POSITION , SIDE RAILS X2 ,CALL LIGHT WITHIN REACH , HOB @ 45 , WILL CONTINUE TO MONITOR
[2019-09-01] MEDS: LEVOTHYROXINE SODIUM 88 MCG TABLET PO SCH (07:45)
[2019-09-01] MEDS: ASCORBIC ACID 500 MG TABLET PO SCH (08:56)
[2019-09-01] MEDS: MULTIVIT W/MINERALS 1 TAB TABLET PO SCH (08:56)
[2019-09-01] MEDS: methylPREDNISolone SOD SUCC 125 MG/2ML VIAL IV SCH ×3 (08:56→17:25)
[2019-09-01] MEDS: ASPIRIN EC 81 MG TABLET.DR PO SCH (08:56)
[2019-09-01] MEDS: PREGABALIN 100 MG CAPSULE PO SCH ×2 (08:56→17:00)
[2019-09-01] MEDS: FLUTICASONE PROPIONATE 16 GM BOTTLE NS SCH ×2 (08:57→17:25)
--- NOTE | 2019-09-01 09:00 | NUR ---
ASSET PROTECTION OFFICER NOTES BOUDREAUX CATHETER LEAKING , NOTED WITH LARGE AMOUNT OF RED / PINKISH COLORED URINE UNDER THE PADS , RE POSITIONED FC , WILL RE ASSESS
[2019-09-01] MEDS: IV D5W 1,000 ML IV PRN (12:50)
[2019-09-01] MEDS: PROSOURCE / PROSTAT (PYXIS) 30 ML UDC GT SCH ×2 (12:51→17:26)
[2019-09-01] MEDS: RIVAROXABAN 10 MG TABLET PO SCH (17:00)
--- NOTE | 2019-09-01 17:23 | NUR ---
LITHOGRAPHIC PRINTING MACHINIST NOTES TSERING LOPEZ , PT NOTED WITH HEMATURIA . WILL CONTINUE TO MONITOR Addendum: 09/01/19 at 1728 by LÓPEZ MCDONALD RN [id number] NOT GIVEN , PT IS LETHARGIC AND DROWSY
--- NOTE | 2019-09-01 18:05 | NUR ---
agricultural equipment mechanic notes notified dr melvin regarding labile bp of low 80's , re assessed bp , still on low 80's , awaiting for call back
--- NOTE | 2019-09-01 19:14 | NUR ---
curriculum assistant principal notes received a call from dr melvin notified pt has low bp of 85/56 at this time , no prn meds at this time , on d5w @ 75ml/hr , md aware , per md pt bp is ok @ 80's , no new orders received
--- NOTE | 2019-09-01 19:16 | NUR ---
TURN OUT NOTES PATIENT STABLE AT THIS TIME , AOX1 , LETHARGIC , ON HIGH FLOW O2 @ 70% 55LPM ,SPO2 OF 95% , ST 101 ON BEDSIDE MONITOR , FC DRAINING VIA GRAVITY , BLE DRESSING CLEAN DRY AND INTACT , LORENA MIDLINE PATENT AND INTACT WITH D52 @ 75ML/HR INFUSING WELL , ALL NEEDS ATTENDED , BED ON LOW AND LOCKED POSITION , SIDE RAILS X2 ,CALL LIGHT WITHIN REACH , HOB @ 45 , REPORT GIVEN TO AMILCAR FOR CONTINUITY OF CARE
--- NOTE | 2019-09-01 20:00 | NUR ---
PRINCIPAL ELECTRICAL ENGINEER NOTES Received patient lethargic oriented x1 follows simple command.SR per monitor.Respiration even and unlabored.Patient desat to 80's with O2 on Hi flow at 55L FIO2 70% and increased to 85% by RT,Stevie and saturation went up to 90-93%.HOB kept at 45 degrees.FC to gravity.IVF infusing to LORENA ML and site intact.Turned and repositioned to comfort.With multiple skin issues.Maintained on [employer] mattress.Denies pain or sob.Continue monitoring.
[2019-09-01] MEDS: SENNOSIDES 8.6 MG TABLET PO SCH (21:24)
[2019-09-01] MEDS: FAMOTIDINE (20 MG) 20 MG TABLET PO SCH (21:24)
[2019-09-02] VITALS (91 sets, daily range): BP systolic 33–147; BP diastolic 23–88
[2019-09-02] MEDS: IPRATROPIUM NEB FS 0.5 MG/2.5 ML AMPUL.NEB NEB SCH ×4 (01:48→19:27)
[2019-09-02] MEDS: ALBUTEROL HALF STRENGTH 1.25 MG/3 ML VIAL.NEB NEB SCH ×4 (01:48→19:27)
[2019-09-02] MEDS: ACETYLCYSTEINE 10% SOLN 400 MG/4 ML VIAL NEB SCH ×4 (01:49→23:13)
--- NOTE | 2019-09-02 02:30 | NUR ---
Patient saturation 96%.FIO2 titrated down to 70% by Stevie KATE.No distress noted.
[2019-09-02] MEDS: IV D5W 1,000 ML IV PRN (03:10)
[2019-09-02] MEDS ORDERED: NOREPINEPHRINE 4 MG/4 ML AMPUL IV ONE (03:11)
[2019-09-02] MEDS: NOREPINEPHRINE 8 MG in IV NS 0.9% 242 ML IV PRN ×2 (03:18→11:16)
--- NOTE | 2019-09-02 03:18 | NUR ---
Patient BP labile SBP's 60's-70's.Started on levophed gtt at 0.1 mcg/kg/min via LORENA ML. Will titrate accordingly.Continue monitoring.
[2019-09-02 05:17] LABS: CALCIUM, SERUM 9.3 mg/dL (8.5-10.1); CREATININE 1.2 mg/dL (0.6-1.3); MAGNESIUM 2.4 mg/dL (1.8-2.4); POTASSIUM 4.7 mmol/L (3.5-5.1)
[2019-09-02 05:21] LABS: BASOPHILS % (AUTO) 0.1 % (0.0-2.0); HEMATOCRIT 40 % (33-45); HEMOGLOBIN 12.7 g/dL (11.5-14.8); LYMPHOCYTES # (AUTO) 0.3 /CMM (0.8-4.8); MEAN CORPUSCULAR HGB CONC 32 g/dl (31.0-36.0); MEAN CORPUSCULAR VOLUME 84 fL (82-100); MONOCYTES # (AUTO) 0.1 /CMM (0.1-1.30); MONOCYTES % (AUTO) 0.6 % (2.0-12.0); NEUTROPHILS # (AUTO) 12.1 /CMM (1.8-8.9); NEUTROPHILS % (AUTO) 97.3 % (43.0-81.0); PLATELET COUNT (AUTO) 154 /CMM (150-450); RED BLOOD CELL COUNT(AUTO) 4.81 MIL/uL (4.0-5.2); WHITE BLOOD COUNT (AUTO) 12.5 K/uL (4.3-11.0)
[2019-09-02 05:46] LABS: BAND % (MANUAL) 37 % (0.0-5.0); LYMPHOCYTES % (MANUAL) 2 % (16-48); MONOCYTES % (MANUAL) 1 % (0-11.0); NEUTROPHILS % (MANUAL) 60 (42-76)
--- NOTE | 2019-09-02 06:00 | NUR ---
Patient resting.VSS.SR.Levophed gtt infusing at 0.1 mcg.Tolerating Hi-flow at 65% 55L sat 93%-96%.Bathed and all linens changed.Wound dressing done.Was turned and repositioned Q 2hrs.Oliguric.All needs met.No distress noted.
--- NOTE | 2019-09-02 07:15 | NUR ---
Report given to Valdemar Myers RN for continuity of care awaiting for [facility] assigned to this patient.
--- NOTE | 2019-09-02 07:30 | NUR ---
E [employer] NOTES RECEIVED PT ON BED, LETHARGIC , OPES EYES TO VERBAL STIMULI, FOLLOW SIMPLE COMMAND , ON TELE SR-ST, PT ON HIGH FLOW O2 , O2 SAT IN 88-90 %, JANUSZ DRINING TO GRAVITY, L UPPER ARM MIDLINE SITE CLEAN, DRY AND INTACT, PT ON LEVO AT 0.1 MCG/KG/HR AT THIS TIME , SR UP x3, CALL LIGHT WITHIN EASY REACH ,BED LOCKED AND IN LOWEST POSITION , CONTINUE TO MONITOR . Addendum: 09/02/19 at 0759 by BECKIE BAEZA RN CORRECTION PT IS ON LEVO AT .1 MCG/KG/MIN
[2019-09-02] MEDS: LEVOTHYROXINE SODIUM 88 MCG TABLET PO SCH (08:17)
[2019-09-02] MEDS: MULTIVIT W/MINERALS 1 TAB TABLET PO SCH (08:17)
[2019-09-02] MEDS: ASCORBIC ACID 500 MG TABLET PO SCH (08:17)
[2019-09-02] MEDS: methylPREDNISolone SOD SUCC 125 MG/2ML VIAL IV SCH (08:17)
[2019-09-02] MEDS: ASPIRIN EC 81 MG TABLET.DR PO SCH (08:17)
[2019-09-02] MEDS: PREGABALIN 100 MG CAPSULE PO SCH ×2 (08:19→16:15)
[2019-09-02] MEDS: FLUTICASONE PROPIONATE 16 GM BOTTLE NS SCH ×2 (08:20→16:13)
[2019-09-02] MEDS: PROSOURCE / PROSTAT (PYXIS) 30 ML UDC GT SCH ×3 (08:21→16:15)
[2019-09-02] MEDS: HYDROCORTISONE SOD SUCCINATE 100 MG/2 ML VIAL IV SCH ×3 (09:04→16:12)
[2019-09-02] MEDS: IV NS 0.9% 1,000 ML IV PRN ×2 (09:12→23:38)
--- NOTE | 2019-09-02 12:00 | NUR ---
RN NOTES PT ON LEVO GTT AT .2MG/KG/MIN AT THIS TIME, PT ON HIGH FLOW O2 , CONTINUE TO MONITOR .
[2019-09-02] MEDS: RIVAROXABAN 10 MG TABLET PO SCH (16:15)
[2019-09-02] MEDS: NOREPINEPHRINE 32 MG in IV NS 0.9% 218 ML IV PRN (17:47)
--- NOTE | 2019-09-02 18:00 | NUR ---
RN NOTES PT ON 90% HIGH FLOW O2 , DR MARKOS HELM, ORDER RECEIVED FOR BIPAP IF NECESSARY .
--- NOTE | 2019-09-02 19:00 | NUR ---
RN NOTES PT ON 90% HIGH FLOW O2, O2 SAT 93%, LEVO AT 0.4 MG/KG/MIN AT THIS TIME, SR UP x3, CALL LIGHT WITHIN EASY REACH, WILL ENDOSE TO GENERAL PEDIATRICIAN NURSE FOR CONTINUITY OF CARE.
--- NOTE | 2019-09-02 20:00 | NUR ---
Received patient lethargic easily arouse to verbal and tactile stimuli.Oriented to name otherwise confused.Patient on HI-FLOW O2 @ 90% SAT 91%.No acute respiratory distress noted.HOB elevated.ST 110's-120's per bedside monitor.Levophed gtt at 0.4 mcg.kg.min and will titrate accordingly and IVF NF infusing via LORENA ML and site intact.FC to gravity drainage.Turned and repositioned offloading pressure points.Maintained on [employer] mattress.Continue monitoring.
[2019-09-02] MEDS: FAMOTIDINE (20 MG) 20 MG TABLET PO SCH (21:13)
[2019-09-02] MEDS: SENNOSIDES 8.6 MG TABLET PO SCH (21:13)
--- NOTE | 2019-09-02 21:15 | NUR ---
Patient unable to swallow crushed meds with apple sauce.Oral care done.
--- NOTE | 2019-09-02 22:00 | NUR ---
RT NOTES PT HAS INCREASED WORK OF BREATHING. PT IS PLACED ON BIPAP ON MD ORDERED SETTINGS ON MASK SECURED WITH MEPIPLEX. AMBUBAG AT BEDSIDE. WILL CONT TO MONITOR. Addendum: 09/02/19 at 2213 by AKI TRUJILLO RT Amended: Links added.
--- NOTE | 2019-09-02 22:00 | NUR ---
Noted patient breathing harder RT at bedside and placed patient on BIPAP 20/10, RATE 18, FIO2 80%.Saturation 96%.
[2019-09-03] VITALS (32 sets, daily range): BP systolic 32–166; BP diastolic 19–76
[2019-09-03] MEDS: IPRATROPIUM NEB FS 0.5 MG/2.5 ML AMPUL.NEB NEB SCH ×2 (01:18→07:40)
[2019-09-03] MEDS: ALBUTEROL HALF STRENGTH 1.25 MG/3 ML VIAL.NEB NEB SCH ×2 (01:18→07:40)
[2019-09-03] MEDS: NOREPINEPHRINE 32 MG in IV NS 0.9% 218 ML IV PRN ×2 (01:46→05:50)
--- NOTE | 2019-09-03 02:30 | NUR ---
Bed bath rendered.Patient difficult to aroused only to painful stimuli.BP very labile,[id number]. Max on levo.Will get order for another pressor.Tolerating BIPAP.Ordered ABG .
[2019-09-03 02:53] LABS: ABG BASE EXCESS -13.6 mmol/L; ABG OXYGEN SATURATION 97.6 % (92.0-98.5); ABG PCO2 36.5 mmHg (35.0-45.0); ABG PH 7.192 (7.350-7.450); ABG PO2 127.3 mmHg (75.0-100.0); AaDO2 404.8 mmHg; COHb 0.6 % (0.5-1.5); MetHb 0.5 % (0.0-1.5); O2Hb 96.5 % (94.0-97.0); SITE, ABG Right Brachial
[2019-09-03] MEDS ORDERED: PHENYLEPHRINE 10 MG/ML VIAL ONE (02:57)
[2019-09-03] MEDS ORDERED: PHENYLEPHRINE 10 MG/ML VIAL IV PRN (03:00)
--- NOTE | 2019-09-03 03:00 | NUR ---
ABG's resulted pH= 7.1,pCO2 =34.5,pO2 =127.3,HCO3= 13.7 called to with order to intubate.Called ER to intubate.
--- NOTE | 2019-09-03 03:30 | NUR ---
0330 Patient premedicated before intubation with Etomidate 30 mg iv and Succinylcholine 150 mg iv as ordered by Dr.Daniel Fagan. 0332 Patient successfully intubated by same MD and connected to vent by RT. 0340 Portable CXR done post intubation.
--- NOTE | 2019-09-03 03:32 | NUR ---
PT INTUBATED ORALLY BY RADHA RUST WITH 7.0 ETT AND SECURED AT 22CM AT THE LIP LINE. CO2 DETECTOR COLOR CHANGED CONFIRMED. MIST IN TUBE. EQUAL CHEST RISE WITH BILATERAL BREATH SOUNDS. PT PLACED ON [facility] VENT ON RADHA RUST'S ORDERED VENT SETTINGS OF AC, 14, 500, 80%, +5. CAFE ASSISTANT DONE. PT SUCTIONED SMALL AMOUNT OF CLEAR THIN SECRETIONS. ALARMS SET AND AUDIBLE. AMBUBAG AT BED SIDE. VENT CONT TO RED OUTLET. WILL CONT TO MONITOR. Addendum: 09/03/19 at 0416 by AKI TRUJILLO RT Amended: Links added.
[2019-09-03] MEDS ORDERED: PHENYLEPHRINE 50 MG in IV NS 0.9% 250 ML IV ONE ×4 (04:00)
[2019-09-03] MEDS ORDERED: [UNRECOGNIZED DRUG - OTHER] IV PRN ×2 (04:30)
[2019-09-03] MEDS ORDERED: D5W IV PRN ×2 (04:30)
[2019-09-03 04:54] LABS: BASOPHILS % (AUTO) 0.2 % (0.0-2.0); EOSINOPHILS % (AUTO) 0.6 % (0.0-6.0); HEMATOCRIT 43 % (33-45); HEMOGLOBIN 13.1 g/dL (11.5-14.8); LYMPHOCYTES # (AUTO) 0.1 /CMM (0.8-4.8); LYMPHOCYTES % (AUTO) 6.7 % (20.0-44.0); MEAN CORPUSCULAR HGB CONC 31 g/dl (31.0-36.0); MEAN CORPUSCULAR VOLUME 86 fL (82-100); MONOCYTES % (AUTO) 1.2 % (2.0-12.0); NEUTROPHILS % (AUTO) 91.3 % (43.0-81.0); PLATELET COUNT (AUTO) 85 /CMM (150-450); RED BLOOD CELL COUNT(AUTO) 4.98 MIL/uL (4.0-5.2); WHITE BLOOD COUNT (AUTO) 2.2 K/uL (4.3-11.0)
[2019-09-03 05:40] LABS: ABG BASE EXCESS -17.3 mmol/L; ABG OXYGEN SATURATION 96.9 % (92.0-98.5); ABG PCO2 40.3 mmHg (35.0-45.0); ABG PH 7.089 (7.350-7.450); ABG PO2 113.5 mmHg (75.0-100.0); AaDO2 414.6 mmHg; COHb 0.8 % (0.5-1.5); MetHb 0.5 % (0.0-1.5); O2Hb 95.6 % (94.0-97.0); SITE, ABG Left Radial
--- NOTE | 2019-09-03 05:47 | NUR ---
Patient post intubation ABG's relayed to pH=7.0,pCO2 40.3,fL4=980.5,HCO3=11.9 awaiting for orders.Patient remains sedated.
[2019-09-03 05:54] LABS: ALANINE AMINOTRANSFERASE 51 U/L (12-78); ALKALINE PHOSPHATASE 108 U/L (46-116); ASPARTATE AMINOTRANSFERASE 105 U/L (15-37); BILIRUBIN,TOTAL 1.8 mg/dL (0.2-1.0); CALCIUM, SERUM 8.3 mg/dL (8.5-10.1); CARBON DIOXIDE 17 mmol/L (21-32); CHLORIDE 108 mmol/L (98-107); CREATININE 1.8 mg/dL (0.6-1.3); MAGNESIUM 2.6 mg/dL (1.8-2.4); PHOSPHORUS 4.6 mg/dL (2.5-4.9); POTASSIUM 5.5 mmol/L (3.5-5.1); SODIUM SERUM 136 mmol/L (136-145); TOTAL PROTEIN, SERUM 3.9 g/dL (6.4-8.2); UREA NITROGEN, BLOOD 58 mg/dL (7-18)
--- NOTE | 2019-09-03 06:00 | NUR ---
ETT PULLED BACK 2CM PER MD ORDER POST X-RAY RESULTS. ETT SECURED AT 20CM AT THE LIP. NO RESP DISTRESS NOTED. CONFIGURATION MANAGEMENT CONSULTANT AWARE.
[2019-09-03 06:03] LABS: ALBUMIN 0.9 g/dL (3.4-5.0); GLUCOSE 15 mg/dL (74-106)
[2019-09-03] MEDS ORDERED: DEXTROSE 50%-WATER 50 ML DISP.SYRIN ONE (06:08)
[2019-09-03 06:19] LABS: LYMPHOCYTES % (MANUAL) 30 % (16-48); MONOCYTES % (MANUAL) 6 % (0-11.0); NEUTROPHILS % (MANUAL) 64 (42-76)
--- NOTE | 2019-09-03 06:25 | NUR ---
returned call and updated of patient status.Made aware ogf ABG's result. He said no BICARB.Also made aware that patient finger stick blood sugar reading low and lab called Glucose is 15.D5O 1 amp given IVP by ED T,charge Nurse.Will recheck blood sugar in 30 min.
[2019-09-03] MEDS ORDERED: PHENYLEPHRINE 50 MG in IV NS 0.9% 245 ML IV PRN ×4 (06:30)
--- NOTE | 2019-09-03 06:48 | NUR ---
Patient remains unresponsive only deep painful stimuli.BP remains labile and Neosynephrine gtt started at 0.5 mcg/kg/min.Difficult to get SPO2 reading.Patient kept warm with warm blankets.
--- NOTE | 2019-09-03 06:50 | NUR ---
AT 0642 Recheck Finger stick blood sugar 12. here notified with orders.2 Amps D50 IVP given by Jd BREAUX RN.
[2019-09-03] MEDS ORDERED: DEXTROSE 50%-WATER 50 ML DISP.SYRIN IVP ONE (07:00)
[2019-09-03] MEDS ORDERED: DEXTROSE 10% IN WATER 250 ML BAG IV SCH (07:00)
[2019-09-03] MEDS ORDERED: IV 10% DEXTROSE 1,000 ML IV PRN ×2 (07:00→07:30)
[2019-09-03] MEDS ORDERED: Sodium Bicarbonate 150 MEQ in IV D5W 1,000 ML IV PRN (07:00)
--- NOTE | 2019-09-03 07:03 | NUR ---
EQUAL OPPORTUNITY SPECIALIST. REPEATED BLOOD SUGAR IS 12. MD CAMPOVERDE NOTIFIED ORDERED 50% DEXTROSE X2. WILL REPEAT BLOOD SUGAR. Addendum: 09/03/19 at 0741 by IDRIS MELCHOR RN REPEATED SAME
[2019-09-03] MEDS: LEVOTHYROXINE SODIUM 88 MCG TABLET PO SCH (07:30)
--- NOTE | 2019-09-03 07:38 | NUR ---
Patient status unchanged.Report given to Latasha day shift RN for continuity of care.
--- NOTE | 2019-09-03 07:38 | NUR ---
ICU/RN AM SHIFT OPENING NOTES REPORT RECEIVED FROM PM NURSE. PT RECEIVED AT BEDSIDE, NON-VERBAL OPEN EYES, NO GRIMACING OR ACUTE RESPIRATORY DISTRESS NOTED. PT INTUBATED LIP LINE @ 20CM, WITH RATES SET AT: AC ADJUSTED FROM 14 TO 24, TV 500, FIOS 80% AND PEEP 6. RESPIRATION EVEN & UNLABORED, LUNG SOUNDS DIMINISHED, SINUS TACHY, HR 125. PT WITH ON GOING IN INFUSION OF: NEOSYNEPHRINE @ 0.5MCH/KG/MIN, LEVOPHED @ 1MCG/KG/MIN AND NS @ 70CC/HR, MIDLINE PATENT WITH NO S/S OF INFECTION. BOUDREAUX CATHETER INTACT NOTED WITH MINIMAL OUTPUT OF SANIA COLORED URINE WITH SEDIMENTS. PT NOTED GENERALIZED WEEPING EDEMA. BLOOD GLUCOSE RECHECKED 92. BLOOD PRESSURE CUFF READJUSTED AND PLACED ON LOWER ARM TO OBTAIN BETTER READING. AWAITING FOR BI-CARBONATE FLUID. CL WITHIN REACHED AND SAFETY MAINTAINED. CARE CONTINUED. ON GOING MONITORING.
[2019-09-03] MEDS: ACETYLCYSTEINE 10% SOLN 400 MG/4 ML VIAL NEB SCH (07:40)
[2019-09-03] MEDS: PROSOURCE / PROSTAT (PYXIS) 30 ML UDC GT SCH (08:49)
[2019-09-03] MEDS ORDERED: ETOMIDATE 2 MG/ML VIAL ONE (09:00)
[2019-09-03] MEDS: PREGABALIN 100 MG CAPSULE PO SCH (09:00)
[2019-09-03] MEDS: FLUTICASONE PROPIONATE 16 GM BOTTLE NS SCH (09:00)
[2019-09-03] MEDS: MULTIVIT W/MINERALS 1 TAB TABLET PO SCH (09:00)
[2019-09-03] MEDS: ASCORBIC ACID 500 MG TABLET PO SCH (09:00)
[2019-09-03] MEDS ORDERED: SUCCINYLCHOLINE CHLORIDE 20 MG/ML VIAL ONE (09:00)
[2019-09-03] MEDS: ASPIRIN EC 81 MG TABLET.DR PO SCH (09:00)
[2019-09-03] MEDS: HYDROCORTISONE SOD SUCCINATE 100 MG/2 ML VIAL IV SCH (09:20)
--- NOTE | 2019-09-03 09:40 | NUR ---
ICU/RN ELZBIETA CHURCH CHARGE NURSE AT BEDSIDE RE-ASSESSING PT, UNABLE TO OBTAIN BLOOD PRESSURE. I WAS ON THE PHONE WITH PT'S DAUGHTER ARIANA TRYING TO OBTAIN CONSENT FOR INSERTION OF PICC AND A-LINE, WHEN ELZBIETA CHURCH WAS CALLED IN, HANG UP THE PHONE AND ATTENDED TO PT, NOTED WITH NO PULSE. CPR BEGAN. THREE ROUNDS OF EPINEPHRINE WERE GIVEN TO PT DURING THE CODE, UNABLE TO REVIVE PT. Addendum: 09/03/19 at 1152 by MARCELA HARDY RN ADDENDUM: THE PT PT WAS PRONOUNCED @ [address] JENKINS ( )
--- NOTE | 2019-09-03 10:09 | NUR ---
ICU/RN [facility] PLACED A CALL TO [facility] SPOKE TO REGINALDO CORREA. PT'S INFORMATION GIVEN, PER MR. DICK WILL NOT PROCEED WITH THE CASE. REFERENCE NO. [id number]. CHARGE NURSE AWARE.
[2019-09-03] MEDS ORDERED: EPINEPHRINE (1:10,000) SYRINGE 1 MG/10 ML DISP.SYRIN IVP ONE (10:13)
[2019-09-03] MEDS ORDERED: DEXTROSE 50%-WATER 50 ML DISP.SYRIN IV ONE (10:13)
--- NOTE | 2019-09-03 11:39 | NUR ---
ICU/RN SELENE PT BODY BROUGHT DOWN TO [facility] [place] WITH PERSONAL EFFECTS.
== END 2019-09-03 10:03 | disposition expired | DRG 208 ==
LOC: ER 21:07 → ICU 08-22 00:48
PROVIDERS: ADMIT Internal Medicine; ATTEND Internal Medicine
PROC: 5A2204Z Restoration of Cardiac Rhythm, Single (ICD-10-PCS; principal; 2019-08-22)
PROC: 5A09457 Assistance with Respiratory Ventilation, 24-96 Consecutive Hours, Continuous Positive Airway Pressure (ICD-10-PCS; principal; 2019-08-22)
PROC: 5A1945Z Respiratory Ventilation, 24-96 Consecutive Hours (ICD-10-PCS; 2019-08-26)
PROC: 05HC33Z Insertion of Infusion Device into Left Basilic Vein, Percutaneous Approach (ICD-10-PCS; 2019-08-26)
PROC: 5A09357 Assistance with Respiratory Ventilation, Less than 24 Consecutive Hours, Continuous Positive Airway Pressure (ICD-10-PCS; 2019-09-03)
DX: J96.01 Acute respiratory failure with hypoxia (principal); I21.A1 Myocardial infarction type 2; N17.0 Acute kidney failure with tubular necrosis; E27.40 Unspecified adrenocortical insufficiency; E87.0 Hyperosmolality and hypernatremia; R18.8 Other ascites; Z99.11 Dependence on respirator [ventilator] status; J98.11 Atelectasis; I82.403 Acute embolism and thrombosis of unspecified deep veins of lower extremity, bilateral; I11.0 Hypertensive heart disease with heart failure; I50.9 Heart failure, unspecified; J44.9 Chronic obstructive pulmonary disease, unspecified; M79.7 Fibromyalgia; Z86.73 Personal history of transient ischemic attack (TIA), and cerebral infarction without residual deficits; E03.9 Hypothyroidism, unspecified; E78.5 Hyperlipidemia, unspecified; M54.30 Sciatica, unspecified side; I27.20 Pulmonary hypertension, unspecified; Z87.442 Personal history of urinary calculi; Z79.899 Other long term (current) drug therapy; Z79.51 Long term (current) use of inhaled steroids; Z79.01 Long term (current) use of anticoagulants; F03.90 Unspecified dementia, unspecified severity, without behavioral disturbance, psychotic disturbance, mood disturbance, and anxiety; I87.2 Venous insufficiency (chronic) (peripheral); Z79.82 Long term (current) use of aspirin; R57.1 Hypovolemic shock
CPT/HCPCS: 31720; 36410; 36415; 36600; 71045-TC; 71250-TC; 78582; 80048-TC; 80053-TC; 80061-TC; 80076-TC; 81000-TC; 82533; 82803-TC; 82962-TC; 83605-TC; 83735-TC; 83880; 84100-TC; 84439-TC; 84443-TC; 84481; 84484-TC; 85025-TC; 85730-TC; 87040-TC; 87070-TC; 87081-TC; 87086-TC; 92611-TC; 93307-TC; 93970-TC; 94002-TC; 94003-TC; 94760-TC; 94762-TC; 94799-TC; 99082-TC; A6253; A6403; A9540; A9567; G0378; J0171; J0330; J0696; J1650; J1720; J2370; J2930; J3490; J7030; J7050; J7060; J7070